=== PATIENT | male | born 1965 | race Two or more races ===

== ENCOUNTER 2017-07-02 16:07 | Inpatient (IN) | payer OTHER ==
[2017-07-02 16:36] VITALS: BMI 19.8
--- NOTE | 2017-07-02 17:23 | HP ---
CIWA Score - CIWA Score Nausea/Vomitin-No Nausea/No Vomiting Muscle Tremors: 3 Anxiety: 1-Mildly Anxious Agitation: 3 Paroxysmal Sweats: No Perspiration Orientation: 1-Uncertain about Date Tacttile Disturbances: 2-Mild Itch/Numbness/Burn (right finger tips) Auditory Disturbances: 0-None Visual Disturbances: 2-Mild Sensitivity Headache: 0-None Present CIWA-Ar Total Score: 12 Admission ROS S - HPI Chief Complaint: I am here for withdrawal, I will like to go to rehab after detox . withdrawal symptoms Allergies/Adverse Reactions: Allergies Allergy/AdvReac Type Severity Reaction Status Date / Time fluphenazine enanthate Allergy Severe Swelling Verified 07/02/17 17:13 [From Prolixin] fluphenazine HCl Allergy Severe Swelling Verified 07/02/17 17:13 [From Prolixin] promethazine HCl Allergy Verified 07/02/17 17:13 [From Phenergan] haloperidol [From Haldol] AdvReac Severe Vomiting Verified 07/02/17 17:13 haloperidol lactate AdvReac Severe Vomiting Verified 07/02/17 17:13 [From Haldol] History of Present Illness: Patient is is a 52 yr old male with a history of alcohol, cocaine, alcohol, klonopin and cannabis dependence seeking detox for treatment. PMHX: chronic back pain, asthma, RA, depression, anxiety and bipolar. Denies suicide / homicidal ideation. Reports past history of suicide attempts while at [facility] in 2008. Denies hx of seizures, or drug over dose. Last detox at [facility] 30 days ago. Exam Limitations: No Limitations - Ebola screening Have you traveled outside of the country in the last 21 days: No Have you had contact with anyone from an Ebola affected area: No Have you been sick,other than usual withdrawal symptoms: No Do you have a fever: No - Review of Systems Constitutional: Chills, Changes in sleep, Unintentional Wgt. Loss EENT: reports: See HPI (15 lbs), Other (wears a glasses) Respiratory: reports: Cough, SOB with Exertion (going up the steps), Wheezing Cardiac: reports: No Symptoms Reported GI: reports: Poor Fluid Intake Musculoskeletal: reports: No Symptoms Reported Integumentary: reports: Lesions (right pinky finger healed injury) Neuro: reports: No Symptoms reported Endocrine: reports: No Symptoms Reported Hematology: reports: No Symptoms Reported Psychiatric: reports: Orientated x3, Anxious Other Systems: Reviewed and Negative Patient History - Patient Medical History Hx Anemia: No Hx Asthma: Yes Hx Chronic Obstructive Pulmonary Disease (COPD): No Hx Cancer: No Hx Cardiac Disorders: No Hx Congestive Heart Failure: No Hx Hypertension: No Hx Hypercholesterolemia: No Hx Pacemaker: No HX Cerebrovascular Accident: No Hx Seizures: No Hx Dementia: No Hx Diabetes: No Hx Gastrointestinal Disorders: Yes (GERD ) Hx Liver Disease: No Hx Genitourinary Disorders: No Hx Sexually Transmitted Disorders: Yes (Gonorrhea ) Hx Renal Disease (ESRD): No Hx Thyroid Disease: No Hx Human Immunodeficiency Virus (HIV): No (Last tested two months ago ) Hx Hepatitis C: No Hx Depression: Yes Hx Suicide Attempt: Yes (in 2008 cut wrist while in [facility] ) Hx Bipolar Disorder: Yes (on seroquel last taken a few months ago.) Hx Schizophrenia: Yes - Patient Surgical History Past Surgical History: Yes Hx Neurologic Surgery: No Hx Cataract Extraction: No Hx Cardiac Surgery: No Hx Lung Surgery: No Hx Breast Surgery: No Hx Breast Biopsy: No Hx Abdominal Surgery: Yes (RIGHT INGUINAL HERNIA REPAIR IN 1998) Hx Appendectomy: No Hx Cholecystectomy: No Hx Genitourinary Surgery: No Hx Section: No Hx Orthopedic Surgery: No Other Surgical History: SX FOR INTESTINAL OBSTRUCTION IN 1990 Anesthesia Reaction: No - PPD History Previous Implant?: Yes Documented Results: Negative w/proof Date: 08/01/15 Results: 0 mm PPD to be Administered?: Yes - Reproductive History Patient is a Female of Child Bearing Age (11 -55 yrs old): No - Smoking Cessation Smoking history: Current every day smoker Have you smoked in the past 12 months: Yes Aproximately how many cigarettes per day: 10 Cigars Per Day: 0 Hx Chewing Tobacco Use: No Initiated information on smoking cessation: Yes 'Breaking Loose' booklet given: 07/02/17 - Substance & Tx. History Hx Alcohol Use: Yes Hx Substance Use: Yes Substance Use Type: Alcohol, Cocaine, Marijuana, Tranquilizers Hx Substance Use Treatment: Yes ([facility] 30 days ago ) - Substances Abused Alcohol Route: Oral Frequency: Daily Amount used: 2 6PKS BEER/ 1 PINT LIQUOR Age of first use: 9 Date of Last Use: 07/02/17 Crack Route: Smoking Frequency: Daily Amount used: $40 Age of first use: 18 Date of Last Use: 06/30/17 Benzodiazepine (Klonopin) Route: Oral Frequency: 1-2 times per week Amount used: 10 mg Age of first use: 18 Date of Last Use: 07/02/17 Family Disease History - Family Disease History Family Disease History: Respiratory: Father (asthma and alcohol , ), Other: Father Admission Physical Exam [facility] - Vital Signs Vital Signs: Vital Signs - 24 hr 07/02/17 16:34 Temperature 96 F L Pulse Rate 98 H Respiratory 18 Rate Blood Pressure 136/81 - Physical General Appearance: Yes: Disheveled, Thin, Irritable HEENTM: Yes: Hearing grossly Normal, Normal ENT Inspection, Pharynx Normal, Tm' s normal, Other (chelithis) Respiratory: Yes: Chest Non-Tender, No Respiratory Distress, No Accessory Muscle Use, Wheezing (bilateral lower lobes), Other (cough non - productive) Neck: Yes: No masses,lesions,Nodules, Trachea in good position Breast: Yes: Breast Exam Deferred Cardiology: Yes: Regular Rhythm, Regular Rate Abdominal: Yes: Normal Bowel Sounds, Non Tender, Flat, Soft Genitourinary: Yes: Within Normal Limits Back: Yes: Normal Inspection Musculoskeletal: Yes: full range of Motion, Gait Steady, Pelvis Stable, Back pain Extremities: Yes: Normal Capillary Refill, Normal Inspection, Normal Range of Motion, Non-Tender 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: 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: 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 NML intact, Fully Oriented, Alert, Motor Strength 5/5, Depressed Affect Integumentary: Yes: Normal Color, Dry, Warm Lymphatic: Yes: Within Normal Limits - Diagnostic (1) Alcohol dependence with withdrawal Current Visit: Yes Status: Acute Qualifiers: Complication of substance-induced condition: uncomplicated Qualified Code(s ): F10.230 - Alcohol dependence with withdrawal, uncomplicated (2) Sedative, hypnotic or anxiolytic dependence with withdrawal, unspecified Current Visit: Yes Status: Acute (3) Schizoaffective disorder Current Visit: Yes Status: Suspected Qualifiers: Schizoaffective disorder type: unspecified Qualified Code(s): F25.9 - Schizoaffective disorder, unspecified (4) Cannabis dependence Current Visit: Yes Status: Acute (5) Cocaine dependence Current Visit: Yes Status: Acute Qualifiers: Substance use status: uncomplicated Qualified Code(s): F14.20 - Cocaine dependence, uncomplicated (6) Gastroesophageal reflux disease Current Visit: Yes Status: Chronic (7) Weight decreased Current Visit: Yes Status: Acute (8) Dehydration Current Visit: Yes Status: Acute (9) Chronic back pain Current Visit: Yes Status: Chronic Qualifiers: Back pain location: low back pain Cleared for Admission [facility] - Detox or Rehab [facility] Level of Care: Medically Managed Detox Regimen/Protocol: Librium S Breath Alcohol Content Breath Alcohol Content: 0.090 Urine Drug Screen - Results Drug Screen Negative: No Urine Drug Screen Results: THC-Marijuana, VELASQUEZ-Cocaine, OPI-Opiates, BZO- Benzodiazepines
[2017-07-02] MEDS ORDERED: guaiFENesin/D-METHORPHAN HB 10 ML UNIT-DOSE CUPS PO PRN (17:47)
[2017-07-02] MEDS ORDERED: MAGNESIUM CITRATE 300 ML BOTTLE PO PRN (17:47)
[2017-07-02] MEDS ORDERED: MENTHOL/PHENOL 1 EACH UD MM PRN (17:47)
[2017-07-02] MEDS ORDERED: IBUPROFEN 400 MG TABLET (FP) PO PRN (17:47)
[2017-07-02] MEDS ORDERED: NICOTINE POLACRILEX 2 MG GUM BC PRN (17:47)
[2017-07-02] MEDS ORDERED: MAGNESIUM HYDROX 2400MG/30ML ORAL SUSPENSION 30 ML CUP PO PRN (17:47)
[2017-07-02] MEDS ORDERED: MAG HYDROX/AL HYDROX/SIMETH 30 ML UNIT-DOSE CUP PO PRN (17:47)
[2017-07-02] MEDS ORDERED: LOPERAMIDE HCL 2 MG CAPSULE PO PRN (17:47)
[2017-07-02] MEDS ORDERED: P-EPHED 60MG/TRIPROLIDI 2.5MG TABLET PO PRN (17:47)
[2017-07-02] MEDS ORDERED: hydrOXYzine PAMOATE 50 MG CAPSULE (FP) PO PRN (17:47)
[2017-07-02] MEDS ORDERED: ACETAMINOPHEN 325 MG TABLET (FP) PO PRN (17:47)
[2017-07-02] MEDS ORDERED: chlordiazePOXIDE HCL 25 MG CAPSULE PO PRN (17:47)
[2017-07-02] MEDS ORDERED: ALBUTEROL SO4 18 GM HFA INHALER IH PRN (17:56)
[2017-07-02] MEDS ORDERED: ALBUTEROL SO4 2.5/IPRATROPIUM 0.5 INH SOL 3 ML VIAL.NEB. NEB PRN (17:58)
[2017-07-02] MEDS ORDERED: THIAMINE HCL 100 MG TABLET (FP) PO SCH (22:00)
[2017-07-02] MEDS ORDERED: MELATONIN 5 MG TABLETS PO PRN (22:00)
[2017-07-02] MEDS ORDERED: METHOCARBAMOL 500 MG TABLET PO SCH (22:00)
[2017-07-02] MEDS: chlordiazePOXIDE HCL 25 MG CAPSULE PO SCH (22:26)
[2017-07-03 02:20] LABS: URINE APPEARANCE CLEAR; URINE BLOOD NEGATIVE (NEGATIVE); URINE COLOR YELLOW; URINE GLUCOSE (UA) NEGATIVE (NEGATIVE); URINE KETONE 1+ (NEGATIVE); URINE LEUK ESTERASE NEGATIVE (NEGATIVE); URINE NITRITE NEGATIVE (NEGATIVE); URINE PROTEIN NEGATIVE (NEGATIVE)
[2017-07-03] MEDS: chlordiazePOXIDE HCL 25 MG CAPSULE PO SCH (05:32)
[2017-07-03 09:54] VITALS: BP 118/84; PULSE 79; TEMP 97
[2017-07-03] MEDS ORDERED: NICOTINE 14 MG/24 HOURS TOPICAL PATCH TD SCH (10:00)
[2017-07-03] MEDS ORDERED: PANTOPRAZOLE 40 MG TABLET (FP) PO SCH (10:00)
[2017-07-03] MEDS ORDERED: CLOTRIMAZOLE 1% CREAM 15 GM TUBE TP SCH (10:00)
[2017-07-03] MEDS ORDERED: PRENATAL VITAMINS W/ FOLIC ACID TABLET (FP) PO SCH (10:00)
[2017-07-03] MEDS ORDERED: BACITRACIN 0.9 GM PACKET TP SCH (10:00)
[2017-07-03] MEDS ORDERED: BACITRACIN 15 GM TUBE TOPICAL OINTMENT TP SCH (10:00)
[2017-07-03 10:23] LABS: HEMATOCRIT 39.5 % (35.4-49); HEMOGLOBIN 13.1 GM/dL (11.7-16.9); MCH 29.4 pg (25.7-33.7); MCHC 33.2 g/dl (32.0-35.9); MEAN CELL VOLUME 88.5 fl (80-96); MEAN PLT VOLUME 8.7 fl (7.5-11.1); PLATELET COUNT 276 K/MM3 (134-434); RBC 4.46 M/mm3 (4.00-5.60); RDW 13.9 % (11.9-15.9); WHITE BLOOD COUNT 6.4 K/mm3 (4.0-10.0)
--- NOTE | 2017-07-03 10:42 | EKG ---
Test Reason : Blood Pressure : / mmHG Vent. Rate : 092 BPM Atrial Rate : 092 BPM P-R Int : 150 ms QRS Dur : 084 ms QT Int : 362 ms P-R-T Axes : 066 083 066 degrees QTc Int : 447 ms SINUS RHYTHM WITH PREMATURE ATRIAL COMPLEXES OTHERWISE NORMAL ECG WHEN COMPARED WITH ECG OF 30-NOV-2013 17:16, PREMATURE ATRIAL COMPLEXES ARE NOW PRESENT Confirmed by MD Bhupinder, Andrse ([id number]) on 07/03/2017 10:41:59 AM Referred By: Confirmed By:Andres Roe MD
[2017-07-03 10:54] LABS: CHLORIDE 107 mmol/L (98-107); POTASSIUM 4.1 mmol/L (3.5-5.1); SODIUM 141 mmol/L (136-145)
[2017-07-03 11:02] LABS: ALBUMIN 3.2 g/dl (3.4-5.0); ALK PHOS 73 U/L (45-117); ANION GAP 8 (8-16); BILIRUBIN,TOTAL 0.3 mg/dL (0.2-1.0); BLOOD UREA NITROGEN 14 mg/dL (7-18); CALCIUM 7.9 mg/dL (8.5-10.1); CO2 26 mmol/L (21-32); CREATININE 1.1 mg/dL (0.7-1.3); GLUCOSE,RANDOM 104 mg/dL (74-106); SGOT/AST 17 U/L (15-37); SGPT/ALT 17 U/L (12-78); TOT PROT 6.2 g/dl (6.4-8.2)
--- NOTE | 2017-07-03 11:27 | CONSULT ---
[facility] Psychiatric Consult - Data Date of interview: 07/03/17 Admission source: [facility] Identifying data: NOT found on the unit.
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
[2017-07-03] MEDS ORDERED: chlordiazePOXIDE HCL 25 MG CAPSULE PO SCH (23:00)
[2017-07-04] MEDS ORDERED: chlordiazePOXIDE 5 MG CAPSULE PO SCH (23:00)
[2017-07-05] MEDS ORDERED: chlordiazePOXIDE HCL 10 MG CAPSULE PO SCH (23:00)
== END 2017-07-03 09:45 | disposition left against medical advice (07) | DRG 770 ==
LOC: YASAS 16:07 → Y3N 18:19
PROVIDERS: ADMIT Internal Medicine; ATTEND Internal Medicine
PROC: HZ2ZZZZ Detoxification Services for Substance Abuse Treatment (ICD-10-PCS; principal; 2017-07-02)
DX: F13.230 Sedative, hypnotic or anxiolytic dependence with withdrawal, uncomplicated (principal); F10.230 Alcohol dependence with withdrawal, uncomplicated; F14.20 Cocaine dependence, uncomplicated; F12.20 Cannabis dependence, uncomplicated; E86.0 Dehydration; M54.5 Low back pain; G89.29 Other chronic pain; R63.4 Abnormal weight loss; Z68.1 Body mass index [BMI] 19.9 or less, adult; J45.909 Unspecified asthma, uncomplicated
CPT/HCPCS: 36415; 80053; 81003; 85027; 86593; 87389; 93005; 93010

== ENCOUNTER 2017-11-17 13:22 | Inpatient (IN) | payer OTHER ==
[2017-11-17 14:58] VITALS: BMI 19.4
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
[2017-11-17] MEDS ORDERED: NICOTINE POLACRILEX 2 MG GUM BC PRN (16:10)
[2017-11-17] MEDS ORDERED: MENTHOL/PHENOL 1 EACH UD MM PRN (16:10)
[2017-11-17] MEDS ORDERED: ACETAMINOPHEN 325 MG TABLET (FP) PO PRN (16:10)
[2017-11-17] MEDS ORDERED: LOPERAMIDE HCL 2 MG CAPSULE PO PRN (16:10)
[2017-11-17] MEDS ORDERED: IBUPROFEN 400 MG TABLET (FP) PO PRN (16:10)
[2017-11-17] MEDS ORDERED: MAGNESIUM HYDROX 2400MG/30ML ORAL SUSPENSION 30 ML CUP PO PRN (16:10)
[2017-11-17] MEDS ORDERED: MAGNESIUM CITRATE 300 ML BOTTLE PO PRN (16:10)
[2017-11-17] MEDS ORDERED: chlordiazePOXIDE HCL 25 MG CAPSULE PO PRN (16:10)
[2017-11-17] MEDS ORDERED: chlordiazePOXIDE HCL 25 MG CAPSULE PO ONE (16:10)
[2017-11-17] MEDS ORDERED: guaiFENesin/D-METHORPHAN HB 10 ML UNIT-DOSE CUPS PO PRN (16:10)
[2017-11-17] MEDS ORDERED: P-EPHED 60MG/TRIPROLIDI 2.5MG TABLET PO PRN (16:10)
[2017-11-17] MEDS ORDERED: MAG HYDROX/AL HYDROX/SIMETH 30 ML UNIT-DOSE CUP PO PRN (16:10)
[2017-11-17] MEDS ORDERED: hydrOXYzine PAMOATE 50 MG CAPSULE (FP) PO PRN (16:10)
[2017-11-17] MEDS: chlordiazePOXIDE HCL 25 MG CAPSULE PO SCH ×2 (18:19→22:18)
[2017-11-17] MEDS: NICOTINE 14 MG/24 HOURS TOPICAL PATCH TD SCH (18:20)
[2017-11-17 21:34] LABS: URINE APPEARANCE CLEAR; URINE BILIRUBIN NEGATIVE (<2.0 mg/dL); URINE COLOR YELLOW; URINE GLUCOSE (UA) NEGATIVE (NEGATIVE); URINE KETONE NEGATIVE (NEGATIVE); URINE LEUK ESTERASE TRACE (NEGATIVE); URINE NITRITE NEGATIVE (NEGATIVE); URINE PROTEIN NEGATIVE (NEGATIVE)
[2017-11-17 21:44] LABS: URINE MUCUS RARE
[2017-11-17] MEDS ORDERED: MELATONIN 5 MG TABLETS PO PRN (22:00)
[2017-11-17] MEDS: THIAMINE HCL 100 MG TABLET (FP) PO SCH (22:18)
[2017-11-18] MEDS: chlordiazePOXIDE HCL 25 MG CAPSULE PO SCH ×4 (06:10→23:59)
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
[2017-11-18] MEDS ORDERED: PRENATAL VITAMINS W/ FOLIC ACID TABLET (FP) PO SCH (10:00)
[2017-11-18] MEDS: NICOTINE 14 MG/24 HOURS TOPICAL PATCH TD SCH (10:19)
[2017-11-18] MEDS: OLANZapine 10 MG TABLET PO SCH ×2 (10:22→23:58)
[2017-11-18 10:37] LABS: HEMATOCRIT 38.7 % (35.4-49); HEMOGLOBIN 12.8 GM/dL (11.7-16.9); MCH 28.9 pg (25.7-33.7); MEAN CELL VOLUME 87.7 fl (80-96); MEAN PLT VOLUME 8.6 fl (7.5-11.1); PLATELET COUNT 317 K/MM3 (134-434); RBC 4.42 M/mm3 (4.00-5.60); RDW 14.5 % (11.9-15.9); WHITE BLOOD COUNT 6.1 K/mm3 (4.0-10.0)
[2017-11-18 10:45] LABS: ANION GAP 7 MMOL/L (8-16); BLOOD UREA NITROGEN 12 mg/dL (7-18); CALCIUM 8.3 mg/dL (8.5-10.1); CHLORIDE 107 mmol/L (98-107); CO2 29 mmol/L (21-32); GLUCOSE,RANDOM 99 mg/dL (74-106); POTASSIUM 4.3 mmol/L (3.5-5.1); SODIUM 143 mmol/L (136-145)
[2017-11-18 10:48] LABS: ALK PHOS 73 U/L (45-117); BILIRUBIN,TOTAL 0.3 mg/dL (0.2-1.0); CREATININE 0.8 mg/dL (0.7-1.3); SGOT/AST 14 U/L (15-37); SGPT/ALT 16 U/L (12-78); TOT PROT 5.9 g/dl (6.4-8.2)
--- NOTE | 2017-11-18 15:32 | PN ---
S CIWA - CIWA Score Nausea/Vomitin Muscle Tremors: 3 Anxiety: 3 Agitation: 3 Paroxysmal Sweats: 3 Orientation: 0-Oriented Tacttile Disturbances: 1-Very Mild Itch/Numbness Auditory Disturbances: 0-None Visual Disturbances: 0-None Headache: 2-Mild CIWA-Ar Total Score: 18 [facility] Progress Note (SOAP) Subjective: Sweating, tremor, interrupted sleep Objective: 11/18/17 15:31 Last Vital Signs Temp Pulse Resp BP Pulse Ox 97 F L 72 20 122/83 11/18/17 14:42 11/18/17 14:42 11/18/17 14:42 11/18/17 14:42 Laboratory Tests 11/17/17 11/18/17 11/18/17 17:55 07:30 07:30 WBC 6.1 RBC 4.42 Hgb 12.8 Hct 38.7 MCV 87.7 MCH 28.9 MCHC 33.0 RDW 14.5 Plt Count 317 MPV 8.6 Sodium 143 Potassium 4.3 Chloride 107 Carbon Dioxide 29 Anion Gap 7 L BUN 12 Creatinine 0.8 Creat Clearance w eGFR > 60 Random Glucose 99 Calcium 8.3 L Total Bilirubin 0.3 AST 14 L ALT 16 Alkaline Phosphatase 73 Total Protein 5.9 L Albumin 3.0 L Urine Color Yellow Urine Appearance Clear Urine pH 5.0 Ur Specific [place] 1.018 Urine Protein Negative Urine Glucose (UA) Negative Urine Ketones Negative Urine Blood Negative Urine Nitrite Negative Urine Bilirubin Negative Urine Urobilinogen 2.0 Ur Leukocyte Esterase Trace Urine WBC (Auto) 9 Urine RBC (Auto) <1 Urine Mucus Rare RPR Titer 11/18/17 07:30 WBC RBC Hgb Hct MCV MCH MCHC RDW Plt Count MPV Sodium Potassium Chloride Carbon Dioxide Anion Gap BUN Creatinine Creat Clearance w eGFR Random Glucose Calcium Total Bilirubin AST ALT Alkaline Phosphatase Total Protein Albumin Urine Color Urine Appearance Urine pH Ur Specific [place] Urine Protein Urine Glucose (UA) Urine Ketones Urine Blood Urine Nitrite Urine Bilirubin Urine Urobilinogen Ur Leukocyte Esterase Urine WBC (Auto) Urine RBC (Auto) Urine Mucus RPR Titer Nonreactive Labs reviewed Assessment: 11/18/17 15:31 Withdrawal symptoms Plan: Continue detox Encouraged PO water hydration
[2017-11-18] MEDS ORDERED: ALBUTEROL SO4 8 GM HFA INHALER IH PRN (18:34)
--- NOTE | 2017-11-18 18:50 | PN ---
[facility] Progress Note Note: Pt requesting to leave the unit, states he just wants to leave. When asked if there was anything that can be done to make his stay better to continue detox, pt answered "nothing.Ok I want cigarette, do you want to give me cigarette?" Pt hostile and unreceptive to education to complete detox. He decline med refill, states "my medicines should still be in my bag" Pt is A & O x 3, in no respiratory nor acute distress, has steady gait and shows no adverse withdrawal sx. Pt understands that he will be leaving against medical advice.
--- NOTE | 2017-11-18 18:53 | DS ---
[facility] Detox Discharge Summary Admission Date: 11/17/17 Discharge Date: 11/18/17 - History Additional Comments: Pt leaving unit AMA. pls see progress note Pertinent Past History: Asthma, chronic back pain - Physical Exam Results Vital Signs: Vital Signs Temperature 97.0 F L 11/18/17 17:59 Pulse Rate 94 H 11/18/17 17:59 Respiratory Rate 16 11/18/17 17:59 Blood Pressure 134/89 11/18/17 17:59 O2 Sat by Pulse Oximetry (%) Pertinent Admission Physical Exam Findings: withdrawal sx - Medication Discharge Medications: Ambulatory Orders Albuterol Sulfate Inhaler - [Ventolin HFA Inhaler -] 2 inh IH Q4H PRN #1 canister 03/16/14 Esomeprazole Mag Trihydrate [Nexium] 40 mg PO DAILY #30 capsule.ec 03/16/14 Methocarbamol [Robaxin -] 500 mg PO BID 11/19/14 traZODone HCL [Desyrel -] 50 mg PO HS 11/19/14 Olanzapine [ZyPREXA -] 10 mg PO BID #60 tablet 11/18/17 - AMA Did Patient Leave Against Medical Advice: Yes
--- NOTE | 2017-11-18 21:58 | EKG ---
Test Reason : Blood Pressure : / mmHG Vent. Rate : 071 BPM Atrial Rate : 071 BPM P-R Int : 158 ms QRS Dur : 086 ms QT Int : 402 ms P-R-T Axes : 063 082 069 degrees QTc Int : 436 ms SINUS RHYTHM WITH MARKED SINUS ARRHYTHMIA OTHERWISE NORMAL ECG WHEN COMPARED WITH ECG OF 02-JUL-2017 19:20, PREMATURE ATRIAL COMPLEXES ARE NO LONGER PRESENT Confirmed by CEE TAYLOR MD ([id number]) on 11/18/2017 9:58:20 PM Referred By: Confirmed By:CEE TAYLOR MD
[2017-11-18] MEDS: THIAMINE HCL 100 MG TABLET (FP) PO SCH (23:58)
[2017-11-19] MEDS: chlordiazePOXIDE HCL 25 MG CAPSULE PO SCH (05:15)
[2017-11-19 09:26] VITALS: BP 117/85; PULSE 86; TEMP 97.1
--- NOTE | 2017-11-19 09:43 | PN ---
[facility] Progress Note Note: PT SIGNED OUT AMA FOR PERSONAL REASONS STATING THAT"I'M NOT GONNA TELL YOU WHY. I JUST WANNA SIGN OUT". PT REMINDED TO FOLLOW UP WITH HIS PAI GOW MANAGER AT [facility] FOR MEDICAL MANAGEMENT NEEDED AND AFTERCARE PLANNED. Vital Signs 11/19/17 11/19/17 11/19/17 06:10 06:30 09:25 Temperature 97.2 F L 97.1 F L Pulse Rate 61 86 Respiratory 18 18 18 Rate Blood Pressure 127/88 117/85 Laboratory Tests 11/17/17 11/18/17 11/18/17 17:55 07:30 07:30 WBC 6.1 RBC 4.42 Hgb 12.8 Hct 38.7 MCV 87.7 MCH 28.9 MCHC 33.0 RDW 14.5 Plt Count 317 MPV 8.6 Sodium 143 Potassium 4.3 Chloride 107 Carbon Dioxide 29 Anion Gap 7 L BUN 12 Creatinine 0.8 Creat Clearance w eGFR > 60 Random Glucose 99 Calcium 8.3 L Total Bilirubin 0.3 AST 14 L ALT 16 Alkaline Phosphatase 73 Total Protein 5.9 L Albumin 3.0 L Urine Color Yellow Urine Appearance Clear Urine pH 5.0 Ur Specific [place] 1.018 Urine Protein Negative Urine Glucose (UA) Negative Urine Ketones Negative Urine Blood Negative Urine Nitrite Negative Urine Bilirubin Negative Urine Urobilinogen 2.0 Ur Leukocyte Esterase Trace Urine WBC (Auto) 9 Urine RBC (Auto) <1 Urine Mucus Rare RPR Titer 11/18/17 07:30 WBC RBC Hgb Hct MCV MCH MCHC RDW Plt Count MPV Sodium Potassium Chloride Carbon Dioxide Anion Gap BUN Creatinine Creat Clearance w eGFR Random Glucose Calcium Total Bilirubin AST ALT Alkaline Phosphatase Total Protein Albumin Urine Color Urine Appearance Urine pH Ur Specific [place] Urine Protein Urine Glucose (UA) Urine Ketones Urine Blood Urine Nitrite Urine Bilirubin Urine Urobilinogen Ur Leukocyte Esterase Urine WBC (Auto) Urine RBC (Auto) Urine Mucus RPR Titer Nonreactive NAD PLAN:PT SIGNED OUT AMA
--- NOTE | 2017-11-19 12:17 | DS ---
[facility] Detox Discharge Summary Admission Date: 11/17/17 Discharge Date: 11/19/17 - History Present History: Alcohol Dependence Additional Comments: PT SIGNED OUT AMA FOR PERSONAL REASONS. FOLLOW UP WITH HIS PMD AT [facility] FOR MEDICAL [facility]NAG[facility]. Pertinent Past History: PLEASE SEE DX BELOW - Physical Exam Results Vital Signs: Vital Signs Temperature 97.1 F L 11/19/17 09:25 Pulse Rate 86 11/19/17 09:25 Respiratory Rate 18 11/19/17 09:25 Blood Pressure 117/85 11/19/17 09:25 O2 Sat by Pulse Oximetry (%) Pertinent Admission Physical Exam Findings: WITHDRAWAL SX Laboratory Tests 11/17/17 11/18/17 11/18/17 17:55 07:30 07:30 WBC 6.1 RBC 4.42 Hgb 12.8 Hct 38.7 MCV 87.7 MCH 28.9 MCHC 33.0 RDW 14.5 Plt Count 317 MPV 8.6 Sodium 143 Potassium 4.3 Chloride 107 Carbon Dioxide 29 Anion Gap 7 L BUN 12 Creatinine 0.8 Creat Clearance w eGFR > 60 Random Glucose 99 Calcium 8.3 L Total Bilirubin 0.3 AST 14 L ALT 16 Alkaline Phosphatase 73 Total Protein 5.9 L Albumin 3.0 L Urine Color Yellow Urine Appearance Clear Urine pH 5.0 Ur Specific [place] 1.018 Urine Protein Negative Urine Glucose (UA) Negative Urine Ketones Negative Urine Blood Negative Urine Nitrite Negative Urine Bilirubin Negative Urine Urobilinogen 2.0 Ur Leukocyte Esterase Trace Urine WBC (Auto) 9 Urine RBC (Auto) <1 Urine Mucus Rare RPR Titer 11/18/17 07:30 WBC RBC Hgb Hct MCV MCH MCHC RDW Plt Count MPV Sodium Potassium Chloride Carbon Dioxide Anion Gap BUN Creatinine Creat Clearance w eGFR Random Glucose Calcium Total Bilirubin AST ALT Alkaline Phosphatase Total Protein Albumin Urine Color Urine Appearance Urine pH Ur Specific [place] Urine Protein Urine Glucose (UA) Urine Ketones Urine Blood Urine Nitrite Urine Bilirubin Urine Urobilinogen Ur Leukocyte Esterase Urine WBC (Auto) Urine RBC (Auto) Urine Mucus RPR Titer Nonreactive - Treatment Hospital Course: Discharged Condition Good - Medication Discharge Medications: Ambulatory Orders Albuterol Sulfate Inhaler - [Ventolin HFA Inhaler -] 2 inh IH Q4H PRN #1 canister 03/16/14 Esomeprazole Mag Trihydrate [Nexium] 40 mg PO DAILY #30 capsule.ec 03/16/14 Methocarbamol [Robaxin -] 500 mg PO BID 11/19/14 traZODone HCL [Desyrel -] 50 mg PO HS 11/19/14 Olanzapine [ZyPREXA -] 10 mg PO BID #60 tablet 11/18/17 - Diagnosis (1) Alcohol dependence with withdrawal Status: Acute Qualifiers: Complication of substance-induced condition: uncomplicated Qualified Code(s ): F10.230 - Alcohol dependence with withdrawal, uncomplicated (2) Cannabis dependence Status: Acute (3) Cocaine dependence Status: Acute Qualifiers: Substance use status: uncomplicated Qualified Code(s): F14.20 - Cocaine dependence, uncomplicated (4) Dehydration Status: Acute (5) Asthma Status: Chronic (6) Nicotine dependence Status: Chronic Qualifiers: Nicotine product type: cigarettes Substance use status: in withdrawal Qualified Code(s): F17.213 - Nicotine dependence, cigarettes, with withdrawal - AMA Did Patient Leave Against Medical Advice: Yes (AMA)
[2017-11-19] MEDS ORDERED: chlordiazePOXIDE 5 MG CAPSULE PO SCH (17:00)
[2017-11-20] MEDS ORDERED: chlordiazePOXIDE HCL 10 MG CAPSULE PO SCH (17:00)
== END 2017-11-19 09:39 | disposition left against medical advice (07) | DRG 770 ==
LOC: YASAS 13:22 → Y3N 17:35
PROVIDERS: ADMIT Surgery; ATTEND Surgery
PROC: HZ2ZZZZ Detoxification Services for Substance Abuse Treatment (ICD-10-PCS; principal; 2017-11-17)
DX: F10.230 Alcohol dependence with withdrawal, uncomplicated (principal); F14.20 Cocaine dependence, uncomplicated; F17.210 Nicotine dependence, cigarettes, uncomplicated; F25.9 Schizoaffective disorder, unspecified; F31.9 Bipolar disorder, unspecified; F19.24 Other psychoactive substance dependence with psychoactive substance-induced mood disorder; E86.0 Dehydration; K21.9 Gastro-esophageal reflux disease without esophagitis; J45.909 Unspecified asthma, uncomplicated; R63.4 Abnormal weight loss; Z68.1 Body mass index [BMI] 19.9 or less, adult; M54.5 Low back pain; G89.29 Other chronic pain; Z91.5 Personal history of self-harm; Z88.8 Allergy status to other drugs, medicaments and biological substances
CPT/HCPCS: 36415; 80053; 81003; 81015; 85027; 86593; 93005; 93010

== ENCOUNTER 2017-12-21 13:23 | Inpatient (IN) | payer OTHER ==
[2017-12-21 14:44] VITALS: BMI 20.5
--- NOTE | 2017-12-21 18:21 | HP ---
CIWA Score - CIWA Score Nausea/Vomitin-No Nausea/No Vomiting Muscle Tremors: 4-Moderate,w/Arms Extend Anxiety: 1-Mildly Anxious Agitation: 4-Moderately Restless Paroxysmal Sweats: No Perspiration Orientation: 0-Oriented Tacttile Disturbances: 0-None Auditory Disturbances: 0-None Visual Disturbances: 0-None Headache: 2-Mild CIWA-Ar Total Score: 11 Admission ROS S - HPI Chief Complaint: Here for alcohol withdrawal and help. Allergies/Adverse Reactions: Allergies Allergy/AdvReac Type Severity Reaction Status Date / Time fluphenazine enanthate Allergy Severe Swelling Verified 12/21/17 16:43 [From Prolixin] fluphenazine HCl Allergy Severe Swelling Verified 12/21/17 16:43 [From Prolixin] promethazine HCl Allergy Verified 12/21/17 16:46 [From Phenergan] haloperidol [From Haldol] AdvReac Severe stiffness Verified 12/21/17 16:46 haloperidol lactate AdvReac Severe stiffness Verified 12/21/17 16:46 [From Haldol] History of Present Illness: Hx alcohol use disorder since age 9. Marijuana use disorder since age 9. Cocaine use disorder since age 18. Current TAMIKA = 0.042 Has had multiple detox and rehab admissions but denies extended periods of sobriety. Hx Inguinal hernia; Discussed risks of un-repaired hernia and patient states "I know about strangulation". States will notify staff of any increased pain in area. States has mental health issues and is on medications. Denies thoughts of harming self or others. Search Terms: Junior Farah, 1965 Search Date: 12/21/2017 06:20:16 PM The Drug Utilization Report below displays all of the controlled substance prescriptions, if any, that your patient has filled in the last twelve months. The information displayed on this report is compiled from pharmacy submissions to the Department, and accurately reflects the information as submitted by the pharmacies. This report was requested by: Shira Falcon | Reference #: [id number] Patient Name: Junior Farah Date: 1965 Address: [address] [place] [address] Sex: Male Rx Written Rx Dispensed Drug Quantity Days Supply Prescriber Name 12/01/2017 12/01/2017 chlordiazepoxide 10 mg capsule 27 3 Pean, Harley Reyes Patient Name: Junior Farah Date: 1965 Address: [address] [place] [address] Sex: Male Rx Written Rx Dispensed Drug Quantity Days Supply Prescriber Name 07/06/2017 07/06/2017 oxycodone-acetaminophen 5-325 mg tablet 6 2 Benjamín Prabhakar MD Patient Name: Junior Farah Date: 1965 Address: [address] [place] [address] Sex: Male Rx Written Rx Dispensed Drug Quantity Days Supply Prescriber Name 04/27/2017 05/08/2017 oxycodone-acetaminophen 10-325 mg tab 6 1 Samuel Manish Patient Name: Junior Farah Date: 1965 Address: [address] [place] [address] Sex: Male Rx Written Rx Dispensed Drug Quantity Days Supply Prescriber Name 04/17/2017 04/17/2017 oxycodone-acetaminophen 10-325 mg tab 9 3 Arnold Pina MD Exam Limitations: No Limitations - Ebola screening Have you traveled outside of the country in the last 21 days: No Have you had contact with anyone from an Ebola affected area: No Have you been sick,other than usual withdrawal symptoms: No - Review of Systems Constitutional: Changes in sleep (Difficulty falling asleep. Takes meds), Unintentional Wgt. Loss EENT: reports: Blurred Vision (Wears) Respiratory: reports: No Symptoms reported, Other (Hx asthma and bronchitis) Cardiac: reports: No Symptoms Reported GI: reports: Indigestion (acid reflux), Other ((L) inguinal hernia with occ tenderness - "ducking surgery") : reports: No Symptoms Reported Musculoskeletal: reports: No Symptoms Reported Integumentary: reports: No Symptoms Reported Neuro: reports: Tremors Endocrine: reports: No Symptoms Reported Hematology: reports: No Symptoms Reported Psychiatric: reports: Judgement Intact, Orientated x3 (On medications. Denies thoughts of harming self or others.), Agitated, Anxious, Depressed Patient History - Patient Medical History Hx Anemia: No Hx Asthma: Yes Hx Chronic Obstructive Pulmonary Disease (COPD): No Hx Cancer: No Hx Cardiac Disorders: No Hx Congestive Heart Failure: No Hx Hypertension: No Hx Hypercholesterolemia: No Hx Pacemaker: No HX Cerebrovascular Accident: No Hx Seizures: No Hx Dementia: No Hx Diabetes: No Hx Gastrointestinal Disorders: Yes (acid reflux) Hx Liver Disease: No Hx Genitourinary Disorders: No Hx Sexually Transmitted Disorders: Yes (gonorrhea) Hx Renal Disease (ESRD): No Hx Thyroid Disease: No Hx Human Immunodeficiency Virus (HIV): No Hx Hepatitis C: No Hx Depression: Yes Hx Suicide Attempt: Yes (pill overdose at age 26) Hx Bipolar Disorder: Yes Hx Schizophrenia: Yes (schizoaffective disorder) - Patient Surgical History Past Surgical History: Yes Hx Neurologic Surgery: No Hx Cataract Extraction: No Hx Cardiac Surgery: No Hx Lung Surgery: No Hx Breast Surgery: No Hx Breast Biopsy: No Hx Abdominal Surgery: Yes (RIGHT INGUINAL HERNIA REPAIR IN 1998) Hx Appendectomy: No Hx Cholecystectomy: No Hx Genitourinary Surgery: No Hx Section: No Hx Orthopedic Surgery: No Other Surgical History: SX FOR INTESTINAL OBSTRUCTION IN 1990 Anesthesia Reaction: No - PPD History Previous Implant?: Yes Documented Results: Negative w/proof Implanted On Prior [facility] Admission?: Yes Date: 11/19/17 Results: 0 mm PPD to be Administered?: No - Smoking Cessation Smoking history: Current every day smoker Have you smoked in the past 12 months: Yes Aproximately how many cigarettes per day: 10 Cigars Per Day: 0 Hx Chewing Tobacco Use: No Initiated information on smoking cessation: Yes 'Breaking Loose' booklet given: 12/21/17 - Substance & Tx. History Hx Alcohol Use: Yes Hx Substance Use: Yes Substance Use Type: Alcohol, Cocaine, Marijuana Hx Substance Use Treatment: Yes (detox, rehabs) - Substances Abused Crack Route: Smoking Frequency: Daily Amount used: $125 Age of first use: 18 Date of Last Use: 12/20/17 Alcohol-vodka/beer Route: Oral Frequency: Daily Amount used: 3 pts./2-6 pks. Age of first use: 9 Date of Last Use: 12/21/17 Marijuana Route: Smoking Frequency: Daily Amount used: $30 Age of first use: 9 Date of Last Use: 12/20/17 Family Disease History - Family Disease History Family Disease History: Respiratory: Father (asthma and alcohol , ), Other: Father Admission Physical Exam [facility] - Vital Signs Vital Signs: Vital Signs - 24 hr 12/21/17 14:43 Temperature 98.0 F Pulse Rate 78 Respiratory 18 Rate Blood Pressure 115/78 - Physical General Appearance: Yes: Appropriately Dressed, Mild Distress, Alcohol on Breath , Tremorous, Irritable, Anxious HEENTM: Yes: EOMI, Hearing grossly Normal, Normocephalic, Normal Voice, CHEPE, Other (Dry oral mucous membranes) Respiratory: Yes: Chest Non-Tender, Lungs Clear, Normal Breath Sounds, No Respiratory Distress Neck: Yes: No masses,lesions,Nodules, Supple Breast: Yes: Breast Exam Deferred Cardiology: Yes: Regular Rhythm, Regular Rate, S1, S2 Abdominal: Yes: Normal Bowel Sounds, Non Tender, Flat, Soft, Hernia (Reducible ( L) inguinal hernia.) Genitourinary: Yes: Within Normal Limits Back: Yes: Normal Inspection Musculoskeletal: Yes: full range of Motion, Gait Steady Extremities: Yes: Normal Capillary Refill, Normal Range of Motion, Non-Tender, Tremors ([place] and also of hands when arms extended.) 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: Yes: shipping and receiving weigher II-XII NML intact, Fully Oriented, Alert, Motor Strength 5/5, Normal Mood/Affect, Normal Response Integumentary: Yes: Normal Color, Dry (Poor skin turgor.), Warm, Other ( Thickenening and cracking of skin between toes) Lymphatic: Yes: Within Normal Limits - Diagnostic (1) Hernia, inguinal Current Visit: Yes Status: Chronic Qualifiers: Obstruction and gangrene presence: without obstruction or gangrene Laterality: unilateral Recurrence: recurrent Qualified Code(s): K40.91 - Unilateral inguinal hernia, without obstruction or gangrene, recurrent (2) Alcohol dependence with withdrawal Current Visit: Yes Status: Acute Qualifiers: Complication of substance-induced condition: uncomplicated Qualified Code(s ): F10.230 - Alcohol dependence with withdrawal, uncomplicated (3) Cannabis dependence Current Visit: Yes Status: Chronic (4) Cocaine dependence Current Visit: Yes Status: Chronic Qualifiers: Substance use status: uncomplicated Qualified Code(s): F14.20 - Cocaine dependence, uncomplicated (5) Dehydration Current Visit: Yes Status: Acute (6) Asthma Current Visit: Yes Status: Chronic (7) Gastroesophageal reflux disease Current Visit: Yes Status: Chronic (8) Tinea pedis of both feet Current Visit: Yes Status: Chronic Cleared for Admission [facility] - Detox or Rehab [facility] Level of Care: Medically Managed Detox Regimen/Protocol: Librium [facility] Breath Alcohol Content Breath Alcohol Content: 0.042 Urine Drug Screen - Results Drug Screen Negative: No Urine Drug Screen Results: THC-Marijuana, VELASQUEZ-Cocaine
[2017-12-21] MEDS ORDERED: chlordiazePOXIDE HCL 25 MG CAPSULE PO PRN (18:42)
[2017-12-21] MEDS ORDERED: MAGNESIUM HYDROX 2400MG/30ML ORAL SUSPENSION 30 ML CUP PO PRN (18:42)
[2017-12-21] MEDS ORDERED: MAGNESIUM CITRATE 300 ML BOTTLE PO PRN (18:42)
[2017-12-21] MEDS ORDERED: hydrOXYzine PAMOATE 50 MG CAPSULE (FP) PO PRN (18:42)
[2017-12-21] MEDS ORDERED: LOPERAMIDE HCL 2 MG CAPSULE PO PRN (18:42)
[2017-12-21] MEDS ORDERED: chlordiazePOXIDE HCL 25 MG CAPSULE PO ONE (18:42)
[2017-12-21] MEDS ORDERED: guaiFENesin/D-METHORPHAN HB 10 ML UNIT-DOSE CUPS PO PRN (18:42)
[2017-12-21] MEDS ORDERED: MAG HYDROX/AL HYDROX/SIMETH 30 ML UNIT-DOSE CUP PO PRN (18:42)
[2017-12-21] MEDS ORDERED: IBUPROFEN 400 MG TABLET (FP) PO PRN (18:42)
[2017-12-21] MEDS ORDERED: ACETAMINOPHEN 325 MG TABLET (FP) PO PRN (18:42)
[2017-12-21] MEDS ORDERED: MENTHOL/PHENOL 1 EACH UD MM PRN (18:42)
[2017-12-21] MEDS ORDERED: NICOTINE POLACRILEX 2 MG GUM BUC PRN (18:42)
[2017-12-21] MEDS ORDERED: P-EPHED 60MG/TRIPROLIDI 2.5MG TABLET PO PRN (18:42)
[2017-12-21] MEDS ORDERED: ALBUTEROL SO4 8 GM HFA INHALER IH PRN (18:45)
[2017-12-21] MEDS ORDERED: MELATONIN 5 MG TABLETS PO PRN (22:00)
[2017-12-21] MEDS: chlordiazePOXIDE HCL 25 MG CAPSULE PO SCH (22:48)
[2017-12-21] MEDS: THIAMINE HCL 100 MG TABLET (FP) PO SCH (22:49)
[2017-12-21] MEDS: TOLNAFTATE 1% POWDER 45 GM POW TP SCH (22:51)
[2017-12-22] MEDS: chlordiazePOXIDE HCL 25 MG CAPSULE PO SCH ×4 (05:29→22:33)
[2017-12-22] MEDS: TOLNAFTATE 1% POWDER 45 GM POW TP SCH ×2 (10:55→22:35)
[2017-12-22] MEDS: NICOTINE 14 MG/24 HOURS TOPICAL PATCH TD SCH (10:55)
[2017-12-22] MEDS: PANTOPRAZOLE 20 MG TABLET (FP) PO SCH (10:55)
[2017-12-22] MEDS: PRENATAL VITAMINS W/ FOLIC ACID TABLET (FP) PO SCH (10:56)
[2017-12-22 11:23] LABS: HEMATOCRIT 41.7 % (35.4-49); HEMOGLOBIN 13.4 GM/dL (11.7-16.9); MCH 28.6 pg (25.7-33.7); MCHC 32.3 g/dl (32.0-35.9); MEAN CELL VOLUME 88.4 fl (80-96); MEAN PLT VOLUME 8.9 fl (7.5-11.1); PLATELET COUNT 295 K/MM3 (134-434); RBC 4.71 M/mm3 (4.00-5.60); RDW 14.8 % (11.9-15.9); URINE APPEARANCE CLEAR; URINE BILIRUBIN NEGATIVE (<2.0 mg/dL); URINE COLOR STRAW; URINE GLUCOSE (UA) NEGATIVE (NEGATIVE); URINE KETONE NEGATIVE (NEGATIVE); URINE LEUK ESTERASE NEGATIVE (NEGATIVE); URINE NITRITE NEGATIVE (NEGATIVE); URINE PROTEIN NEGATIVE (NEGATIVE); URINE UROBILINOGEN NEGATIVE mg/dL (0.2-1.0); WHITE BLOOD COUNT 6.5 K/mm3 (4.0-10.0)
[2017-12-22 11:42] LABS: ALBUMIN 3.3 g/dl (3.4-5.0); ALK PHOS 74 U/L (45-117); ANION GAP 9 MMOL/L (8-16); BILIRUBIN,TOTAL 0.3 mg/dL (0.2-1); BLOOD UREA NITROGEN 11 mg/dL (7-18); CALCIUM 9.3 mg/dL (8.5-10.1); CHLORIDE 104 mmol/L (98-107); CO2 28 mmol/L (21-32); CREATININE 0.9 mg/dL (0.55-1.3); GLUCOSE,RANDOM 79 mg/dL (74-106); POTASSIUM 4.1 mmol/L (3.5-5.1); SGOT/AST 17 U/L (15-37); SGPT/ALT 18 U/L (13-61); SODIUM 141 mmol/L (136-145); TOT PROT 6.5 g/dl (6.4-8.2)
--- NOTE | 2017-12-22 12:36 | PN ---
[facility] CIWA - CIWA Score Nausea/Vomitin-No Nausea/No Vomiting Muscle Tremors: 3 Anxiety: 3 Agitation: 3 Paroxysmal Sweats: 3 Orientation: 0-Oriented Tacttile Disturbances: 0-None Auditory Disturbances: 0-None Visual Disturbances: 1-Very Mild Sensitivity Headache: 0-None Present CIWA-Ar Total Score: 13 S Progress Note (SOAP) Subjective: fatigue, chills, interrupted sleep, sweats Objective: 12/22/17 12:35 Vital Signs Temperature 97.0 F L 12/22/17 08:59 Pulse Rate 72 12/22/17 08:59 Respiratory Rate 18 12/22/17 08:59 Blood Pressure 118/77 12/22/17 08:59 O2 Sat by Pulse Oximetry (%) Laboratory Last Values WBC 6.5 K/mm3 (4.0-10.0) 12/22/17 07:40 RBC 4.71 M/mm3 (4.00-5.60) 12/22/17 07:40 Hgb 13.4 GM/dL (11.7-16.9) 12/22/17 07:40 Hct 41.7 % (35.4-49) 12/22/17 07:40 MCV 88.4 fl (80-96) 12/22/17 07:40 MCH 28.6 pg (25.7-33.7) 12/22/17 07:40 MCHC 32.3 g/dl (32.0-35.9) 12/22/17 07:40 RDW 14.8 % (11.9-15.9) 12/22/17 07:40 Plt Count 295 K/MM3 (134-434) 12/22/17 07:40 MPV 8.9 fl (7.5-11.1) 12/22/17 07:40 Sodium 141 mmol/L (136-145) 12/22/17 07:40 Potassium 4.1 mmol/L (3.5-5.1) 12/22/17 07:40 Chloride 104 mmol/L (98-107) 12/22/17 07:40 Carbon Dioxide 28 mmol/L (21-32) 12/22/17 07:40 Anion Gap 9 MMOL/L (8-16) 12/22/17 07:40 BUN 11 mg/dL (7-18) 12/22/17 07:40 Creatinine 0.9 mg/dL (0.55-1.3) 12/22/17 07:40 Creat Clearance w eGFR > 60 (>60) 12/22/17 07:40 Random Glucose 79 mg/dL (74-106) 12/22/17 07:40 Calcium 9.3 mg/dL (8.5-10.1) 12/22/17 07:40 Total Bilirubin 0.3 mg/dL (0.2-1) 12/22/17 07:40 AST 17 U/L (15-37) 12/22/17 07:40 ALT 18 U/L (13-61) 12/22/17 07:40 Alkaline Phosphatase 74 U/L (45-117) 12/22/17 07:40 Total Protein 6.5 g/dl (6.4-8.2) 12/22/17 07:40 Albumin 3.3 g/dl (3.4-5.0) L 12/22/17 07:40 Urine Color Straw 12/22/17 07:40 Urine Appearance Clear 12/22/17 07:40 Urine pH 5.0 (5.0-8.0) 12/22/17 07:40 Ur Specific [place] 1.010 (1.001-1.035) 12/22/17 07:40 Urine Protein Negative (NEGATIVE) 12/22/17 07:40 Urine Glucose (UA) Negative (NEGATIVE) 12/22/17 07:40 Urine Ketones Negative (NEGATIVE) 12/22/17 07:40 Urine Blood Negative (NEGATIVE) 12/22/17 07:40 Urine Nitrite Negative (NEGATIVE) 12/22/17 07:40 Urine Bilirubin Negative (<2.0 mg/dL) 12/22/17 07:40 Urine Urobilinogen Negative mg/dL (0.2-1.0) 12/22/17 07:40 Ur Leukocyte Esterase Negative (NEGATIVE) 12/22/17 07:40 RPR Titer Nonreactive (NONREACTIVE) 12/22/17 07:40 Labs noted Aox3 no distress, anxious no adventitious breath sounds full ROM , ambulating in the unit Assessment: 12/22/17 12:36 withdrawal sx Plan: increase po fluids continue detox continue to monitor
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
[2017-12-22] MEDS ORDERED: traZODone HCL 50 MG TABLET (FP) PO SCH (22:00)
[2017-12-22] MEDS: THIAMINE HCL 100 MG TABLET (FP) PO SCH (22:33)
--- NOTE | 2017-12-22 23:24 | EKG ---
Test Reason : Blood Pressure : / mmHG Vent. Rate : 082 BPM Atrial Rate : 082 BPM P-R Int : 162 ms QRS Dur : 082 ms QT Int : 354 ms P-R-T Axes : 074 083 069 degrees QTc Int : 413 ms NORMAL SINUS RHYTHM NORMAL ECG WHEN COMPARED WITH ECG OF 17-NOV-2017 17:49, NO SIGNIFICANT CHANGE WAS FOUND Confirmed by CEE TAYLOR MD ([id number]) on 12/22/2017 11:24:09 PM Referred By: Confirmed By:CEE TAYLOR MD
[2017-12-23] MEDS: chlordiazePOXIDE HCL 25 MG CAPSULE PO SCH ×3 (06:00→17:20)
[2017-12-23] MEDS: PANTOPRAZOLE 20 MG TABLET (FP) PO SCH (10:20)
[2017-12-23] MEDS: NICOTINE 14 MG/24 HOURS TOPICAL PATCH TD SCH (10:20)
[2017-12-23] MEDS: TOLNAFTATE 1% POWDER 45 GM POW TP SCH (10:20)
[2017-12-23] MEDS: PRENATAL VITAMINS W/ FOLIC ACID TABLET (FP) PO SCH (11:30)
[2017-12-23 13:59] VITALS: BP 127/75; PULSE 75; TEMP 96.8
--- NOTE | 2017-12-23 14:53 | PN ---
S CIWA - CIWA Score Nausea/Vomitin-No Nausea/No Vomiting Muscle Tremors: 4-Moderate,w/Arms Extend Anxiety: 3 Agitation: 4-Moderately Restless Paroxysmal Sweats: 1-Minimal Palms Moist Orientation: 0-Oriented Tacttile Disturbances: 0-None Auditory Disturbances: 0-None Visual Disturbances: 0-None Headache: 0-None Present CIWA-Ar Total Score: 12 [facility] Progress Note (SOAP) Subjective: sweat tremor restlessness anxiety trouble sleep at night Objective: 12/23/17 14:54 Vital Signs Temperature 96.8 F L 12/23/17 13:59 Pulse Rate 75 12/23/17 13:59 Respiratory Rate 18 12/23/17 13:59 Blood Pressure 127/75 12/23/17 13:59 O2 Sat by Pulse Oximetry (%) Laboratory Last Values WBC 6.5 K/mm3 (4.0-10.0) 12/22/17 07:40 RBC 4.71 M/mm3 (4.00-5.60) 12/22/17 07:40 Hgb 13.4 GM/dL (11.7-16.9) 12/22/17 07:40 Hct 41.7 % (35.4-49) 12/22/17 07:40 MCV 88.4 fl (80-96) 12/22/17 07:40 MCH 28.6 pg (25.7-33.7) 12/22/17 07:40 MCHC 32.3 g/dl (32.0-35.9) 12/22/17 07:40 RDW 14.8 % (11.9-15.9) 12/22/17 07:40 Plt Count 295 K/MM3 (134-434) 12/22/17 07:40 MPV 8.9 fl (7.5-11.1) 12/22/17 07:40 Sodium 141 mmol/L (136-145) 12/22/17 07:40 Potassium 4.1 mmol/L (3.5-5.1) 12/22/17 07:40 Chloride 104 mmol/L (98-107) 12/22/17 07:40 Carbon Dioxide 28 mmol/L (21-32) 12/22/17 07:40 Anion Gap 9 MMOL/L (8-16) 12/22/17 07:40 BUN 11 mg/dL (7-18) 12/22/17 07:40 Creatinine 0.9 mg/dL (0.55-1.3) 12/22/17 07:40 Creat Clearance w eGFR > 60 (>60) 12/22/17 07:40 Random Glucose 79 mg/dL (74-106) 12/22/17 07:40 Calcium 9.3 mg/dL (8.5-10.1) 12/22/17 07:40 Total Bilirubin 0.3 mg/dL (0.2-1) 12/22/17 07:40 AST 17 U/L (15-37) 12/22/17 07:40 ALT 18 U/L (13-61) 12/22/17 07:40 Alkaline Phosphatase 74 U/L (45-117) 12/22/17 07:40 Total Protein 6.5 g/dl (6.4-8.2) 12/22/17 07:40 Albumin 3.3 g/dl (3.4-5.0) L 12/22/17 07:40 Urine Color Straw 12/22/17 07:40 Urine Appearance Clear 12/22/17 07:40 Urine pH 5.0 (5.0-8.0) 12/22/17 07:40 Ur Specific [place] 1.010 (1.001-1.035) 12/22/17 07:40 Urine Protein Negative (NEGATIVE) 12/22/17 07:40 Urine Glucose (UA) Negative (NEGATIVE) 12/22/17 07:40 Urine Ketones Negative (NEGATIVE) 12/22/17 07:40 Urine Blood Negative (NEGATIVE) 12/22/17 07:40 Urine Nitrite Negative (NEGATIVE) 12/22/17 07:40 Urine Bilirubin Negative (<2.0 mg/dL) 12/22/17 07:40 Urine Urobilinogen Negative mg/dL (0.2-1.0) 12/22/17 07:40 Ur Leukocyte Esterase Negative (NEGATIVE) 12/22/17 07:40 RPR Titer Nonreactive (NONREACTIVE) 12/22/17 07:40 lab noted Assessment: 12/23/17 14:55 withdrawal sx Plan: continue detox
--- NOTE | 2017-12-23 18:19 | PN ---
A[facility] Progress Note Note: patient involved in verbal altercation,did not want to stay and complete treatment,all attempts to convince patient to stay with no avail,seen by counselor and supervisor core [employer],patient signed release rui
--- NOTE | 2017-12-23 18:23 | DS ---
[facility] Detox Discharge Summary Admission Date: 12/21/17 Discharge Date: 12/23/17 - History Present History: Alcohol Dependence, Cannabis Dependence, Cocaine Dependence Additional Comments: patient signed release ama Pertinent Past History: withdrawal signs and symptom Laboratory Last Values WBC 6.5 K/mm3 (4.0-10.0) 12/22/17 07:40 RBC 4.71 M/mm3 (4.00-5.60) 12/22/17 07:40 Hgb 13.4 GM/dL (11.7-16.9) 12/22/17 07:40 Hct 41.7 % (35.4-49) 12/22/17 07:40 MCV 88.4 fl (80-96) 12/22/17 07:40 MCH 28.6 pg (25.7-33.7) 12/22/17 07:40 MCHC 32.3 g/dl (32.0-35.9) 12/22/17 07:40 RDW 14.8 % (11.9-15.9) 12/22/17 07:40 Plt Count 295 K/MM3 (134-434) 12/22/17 07:40 MPV 8.9 fl (7.5-11.1) 12/22/17 07:40 Sodium 141 mmol/L (136-145) 12/22/17 07:40 Potassium 4.1 mmol/L (3.5-5.1) 12/22/17 07:40 Chloride 104 mmol/L (98-107) 12/22/17 07:40 Carbon Dioxide 28 mmol/L (21-32) 12/22/17 07:40 Anion Gap 9 MMOL/L (8-16) 12/22/17 07:40 BUN 11 mg/dL (7-18) 12/22/17 07:40 Creatinine 0.9 mg/dL (0.55-1.3) 12/22/17 07:40 Creat Clearance w eGFR > 60 (>60) 12/22/17 07:40 Random Glucose 79 mg/dL (74-106) 12/22/17 07:40 Calcium 9.3 mg/dL (8.5-10.1) 12/22/17 07:40 Total Bilirubin 0.3 mg/dL (0.2-1) 12/22/17 07:40 AST 17 U/L (15-37) 12/22/17 07:40 ALT 18 U/L (13-61) 12/22/17 07:40 Alkaline Phosphatase 74 U/L (45-117) 12/22/17 07:40 Total Protein 6.5 g/dl (6.4-8.2) 12/22/17 07:40 Albumin 3.3 g/dl (3.4-5.0) L 12/22/17 07:40 Urine Color Straw 12/22/17 07:40 Urine Appearance Clear 12/22/17 07:40 Urine pH 5.0 (5.0-8.0) 12/22/17 07:40 Ur Specific [place] 1.010 (1.001-1.035) 12/22/17 07:40 Urine Protein Negative (NEGATIVE) 12/22/17 07:40 Urine Glucose (UA) Negative (NEGATIVE) 12/22/17 07:40 Urine Ketones Negative (NEGATIVE) 12/22/17 07:40 Urine Blood Negative (NEGATIVE) 12/22/17 07:40 Urine Nitrite Negative (NEGATIVE) 12/22/17 07:40 Urine Bilirubin Negative (<2.0 mg/dL) 12/22/17 07:40 Urine Urobilinogen Negative mg/dL (0.2-1.0) 12/22/17 07:40 Ur Leukocyte Esterase Negative (NEGATIVE) 12/22/17 07:40 RPR Titer Nonreactive (NONREACTIVE) 12/22/17 07:40 - Physical Exam Results Vital Signs: Vital Signs Temperature 96.8 F L 12/23/17 13:59 Pulse Rate 75 12/23/17 13:59 Respiratory Rate 18 12/23/17 13:59 Blood Pressure 127/75 12/23/17 13:59 O2 Sat by Pulse Oximetry (%) Pertinent Admission Physical Exam Findings: withdrawal signs and symptom Laboratory Last Values WBC 6.5 K/mm3 (4.0-10.0) 12/22/17 07:40 RBC 4.71 M/mm3 (4.00-5.60) 12/22/17 07:40 Hgb 13.4 GM/dL (11.7-16.9) 12/22/17 07:40 Hct 41.7 % (35.4-49) 12/22/17 07:40 MCV 88.4 fl (80-96) 12/22/17 07:40 MCH 28.6 pg (25.7-33.7) 12/22/17 07:40 MCHC 32.3 g/dl (32.0-35.9) 12/22/17 07:40 RDW 14.8 % (11.9-15.9) 12/22/17 07:40 Plt Count 295 K/MM3 (134-434) 12/22/17 07:40 MPV 8.9 fl (7.5-11.1) 12/22/17 07:40 Sodium 141 mmol/L (136-145) 12/22/17 07:40 Potassium 4.1 mmol/L (3.5-5.1) 12/22/17 07:40 Chloride 104 mmol/L (98-107) 12/22/17 07:40 Carbon Dioxide 28 mmol/L (21-32) 12/22/17 07:40 Anion Gap 9 MMOL/L (8-16) 12/22/17 07:40 BUN 11 mg/dL (7-18) 12/22/17 07:40 Creatinine 0.9 mg/dL (0.55-1.3) 12/22/17 07:40 Creat Clearance w eGFR > 60 (>60) 12/22/17 07:40 Random Glucose 79 mg/dL (74-106) 12/22/17 07:40 Calcium 9.3 mg/dL (8.5-10.1) 12/22/17 07:40 Total Bilirubin 0.3 mg/dL (0.2-1) 12/22/17 07:40 AST 17 U/L (15-37) 12/22/17 07:40 ALT 18 U/L (13-61) 12/22/17 07:40 Alkaline Phosphatase 74 U/L (45-117) 12/22/17 07:40 Total Protein 6.5 g/dl (6.4-8.2) 12/22/17 07:40 Albumin 3.3 g/dl (3.4-5.0) L 12/22/17 07:40 Urine Color Straw 12/22/17 07:40 Urine Appearance Clear 12/22/17 07:40 Urine pH 5.0 (5.0-8.0) 12/22/17 07:40 Ur Specific [place] 1.010 (1.001-1.035) 12/22/17 07:40 Urine Protein Negative (NEGATIVE) 12/22/17 07:40 Urine Glucose (UA) Negative (NEGATIVE) 12/22/17 07:40 Urine Ketones Negative (NEGATIVE) 12/22/17 07:40 Urine Blood Negative (NEGATIVE) 12/22/17 07:40 Urine Nitrite Negative (NEGATIVE) 12/22/17 07:40 Urine Bilirubin Negative (<2.0 mg/dL) 12/22/17 07:40 Urine Urobilinogen Negative mg/dL (0.2-1.0) 12/22/17 07:40 Ur Leukocyte Esterase Negative (NEGATIVE) 12/22/17 07:40 RPR Titer Nonreactive (NONREACTIVE) 12/22/17 07:40 Vital Signs Temperature 96.8 F L 12/23/17 13:59 Pulse Rate 75 12/23/17 13:59 Respiratory Rate 18 12/23/17 13:59 Blood Pressure 127/75 12/23/17 13:59 O2 Sat by Pulse Oximetry (%) - Medication Discharge Medications: Ambulatory Orders Albuterol Sulfate Inhaler - [Ventolin HFA Inhaler -] 2 inh IH Q4H PRN #1 canister 03/16/14 Esomeprazole Mag Trihydrate [Nexium] 40 mg PO DAILY #30 capsule.ec 03/16/14 traZODone HCL [Desyrel -] 50 mg PO HS 11/19/14 Benztropine Mesylate [Cogentin -] 2 mg PO DAILY 12/21/17 Chlorpromazine [Thorazine -] 50 mg PO DAILY 12/21/17 - Diagnosis (1) Asthma Current Visit: Yes Status: Chronic - AMA Did Patient Leave Against Medical Advice: Yes
[2017-12-23] MEDS ORDERED: chlordiazePOXIDE 5 MG CAPSULE PO SCH (23:00)
[2017-12-24] MEDS ORDERED: chlordiazePOXIDE HCL 10 MG CAPSULE PO SCH (23:00)
== END 2017-12-23 17:28 | disposition left against medical advice (07) | DRG 770 ==
LOC: YASAS 13:23 → Y6N 18:46
PROC: HZ2ZZZZ Detoxification Services for Substance Abuse Treatment (ICD-10-PCS; principal; 2017-12-21)
DX: F10.230 Alcohol dependence with withdrawal, uncomplicated (principal); F14.20 Cocaine dependence, uncomplicated; F12.20 Cannabis dependence, uncomplicated; F17.213 Nicotine dependence, cigarettes, with withdrawal; F31.9 Bipolar disorder, unspecified; F19.24 Other psychoactive substance dependence with psychoactive substance-induced mood disorder; F25.9 Schizoaffective disorder, unspecified; G47.00 Insomnia, unspecified; E86.0 Dehydration; J45.909 Unspecified asthma, uncomplicated; B35.3 Tinea pedis; K21.9 Gastro-esophageal reflux disease without esophagitis; K40.91 Unilateral inguinal hernia, without obstruction or gangrene, recurrent; Z91.5 Personal history of self-harm; Z86.19 Personal history of other infectious and parasitic diseases
CPT/HCPCS: 36415; 80053; 81003; 85027; 86593; 93005; 93010

== ENCOUNTER 2019-11-29 19:13 | Inpatient (IN) | payer OTHER ==
[2019-11-29 19:43] VITALS: BMI 22.7
[2019-11-29] MEDS ORDERED: PERMETHRIN 5% TOPICAL CREAM 60 GM TUBE ONE (20:42)
--- NOTE | 2019-11-29 20:53 | HP ---
CIWA Score Nausea/Vomitin-Mild Nausea/No Vomiting Muscle Tremors: 4-Moderate,w/Arms Extend Anxiety: 4-Mod. Anxious/Guarded Agitation: 4-Moderately Restless Paroxysmal Sweats: No Perspiration Orientation: 0-Oriented Tacttile Disturbances: 3-Moderate Itch/Numb/Burn (itch) Auditory Disturbances: 0-None Visual Disturbances: 0-None Headache: 0-None Present CIWA-Ar Total Score: 16 - Admission Criteria OASAS Guidelines: Admission for Medically Managed Detox: Requires at least one of the followin. CIWA greater than 12 2. Seizures within the past 24 hours 3. Delirium tremens within the past 24 hours 4. Hallucinations within the past 24 hours 5. Acute intervention needed for co occurring medical disorder 6. Acute intervention needed for co occurring psychiatric disorder 7. Severe withdrawal that cannot be handled at a lower level of care (continued vomiting, continued diarrhea, abnormal vital signs) requiring intravenous medication and/or fluids 8. Patient presents the following: Acute intervention needed for co-occurring med or psych disorder (s/p er visit at [facility]. given ativan stabilized and referred here for txment) Admission Criteria Met: Admission criteria met Admitting History and Physical - Past Medical History Gastrointestinal: Yes: GERD Psych: Yes: Addictions, Other (and alcohol) - Smoking History Smoking history: Current every day smoker Have you smoked in the past 12 months: Yes Aproximately how many cigarettes per day: 10 - Alcohol/Substance Use Hx Alcohol Use: Yes Admission ROS [facility] - [facility] Chief Complaint: seeking alcohol detox . c/o withdrawal sx's Allergies/Adverse Reactions: Allergies Allergy/AdvReac Type Severity Reaction Status Date / Time fluphenazine enanthate Allergy Severe Swelling Verified 12/21/17 16:43 [From Prolixin] fluphenazine HCl Allergy Severe Swelling Verified 12/21/17 16:43 [From Prolixin] promethazine HCl Allergy Verified 12/21/17 16:46 [From Phenergan] haloperidol [From Haldol] AdvReac Severe stiffness Verified 12/21/17 16:46 haloperidol lactate AdvReac Severe stiffness Verified 12/21/17 16:46 [From Haldol] History of Present Illness: here for alcohol detox. client is referred by [facility] after presenting there for detox. known to us. last here 2017. client reports daily use alcohol. last use 2 days ago. 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 denies ivdu, drug overdose, si/hi/avh. denies any significant period of clean time in the past year. hhomeless- snf, unemployed. denies legals. note: client seen in [facility] er dx schizophrenia d/o. cocaine use. c/o head lice, hallicinations and substance abuse. client was given thorazine benadryl and ativan. he also recieved 2 txments of permethrin. Exam Limitations: No Limitations - Ebola screening Have you traveled outside of the country in the last 21 days: No Have you had contact with anyone from an Ebola affected area: No Have you been sick,other than usual withdrawal symptoms: No Do you have a fever: No - Review of Systems Constitutional: Changes in sleep, Unintentional Wgt. Loss EENT: reports: Other (sore thorat, missing teeth) Respiratory: reports: No Symptoms reported Cardiac: reports: No Symptoms Reported GI: reports: Nausea, Other (heart burn) : reports: No Symptoms Reported Musculoskeletal: reports: Back Pain (chronic) Integumentary: reports: Other (head lice s/p permethrin) Neuro: reports: Tremors Endocrine: reports: No Symptoms Reported Hematology: reports: No Symptoms Reported Psychiatric: reports: Orientated x3, Anxious, Depressed (denies si), other (schizophrenia) Other Systems: Reviewed and Negative Patient History - Patient Medical History Hx Anemia: No Hx Asthma: Yes Hx Chronic Obstructive Pulmonary Disease (COPD): No Hx Cancer: No Hx Cardiac Disorders: No Hx Congestive Heart Failure: No Hx Hypertension: No Hx Hypercholesterolemia: No Hx Pacemaker: No HX Cerebrovascular Accident: No Hx Seizures: No Hx Dementia: No Hx Diabetes: No Hx Gastrointestinal Disorders: Yes (acid reflux) Hx Liver Disease: No Hx Genitourinary Disorders: No Hx Sexually Transmitted Disorders: Yes (gonorrhea) Hx Renal Disease (ESRD): No Hx Thyroid Disease: No Hx Human Immunodeficiency Virus (HIV): No Hx Hepatitis C: No Hx Depression: Yes Hx Suicide Attempt: Yes (pill overdose at age 26) Hx Bipolar Disorder: Yes Hx Schizophrenia: Yes (schizoaffective disorder) Other Medical History: denies - Patient Surgical History Past Surgical History: Yes Hx Neurologic Surgery: No Hx Cataract Extraction: No Hx Cardiac Surgery: No Hx Lung Surgery: No Hx Breast Surgery: No Hx Breast Biopsy: No Hx Abdominal Surgery: Yes (RIGHT INGUINAL HERNIA REPAIR IN 1998) Hx Appendectomy: No Hx Cholecystectomy: No Hx Genitourinary Surgery: No Hx Section: No Hx Orthopedic Surgery: No Other Surgical History: SX FOR INTESTINAL OBSTRUCTION IN 1990 Anesthesia Reaction: No - PPD History Previous Implant?: Yes Documented Results: Negative w/proof Implanted On Prior [facility] Admission?: Yes Date: 11/19/17 Results: 0 mm PPD to be Administered?: Yes - Smoking Cessation Smoking history: Current every day smoker Have you smoked in the past 12 months: Yes Aproximately how many cigarettes per day: 20 Cigars Per Day: 0 Hx Chewing Tobacco Use: No Initiated information on smoking cessation: Yes 'Breaking Loose' booklet given: 11/29/19 - Substance & Tx. History Hx Alcohol Use: Yes Hx Substance Use: Yes Substance Use Type: Cocaine, Marijuana Hx Substance Use Treatment: Yes ([facility]) - Substances abused Alcohol Other (specify): vodka Substance route: Oral Frequency: Daily Amount used: 2 pints Age of first use: 12 Date of last use: 11/27/19 Cocaine Other (specify): crack Substance route: Smoking Frequency: Daily Amount used: 100 dollars Age of first use: 18 Date of last use: 11/27/19 Admission Physical Exam S - Vital Signs Vital Signs: Vital Signs - 24 hr 11/29/19 19:41 Temperature 97.1 F L Pulse Rate 103 H Respiratory 18 Rate Blood Pressure 156/96 - Physical General Appearance: Yes: Moderate Distress, Tremorous, Irritable, Anxious, Other (unkept) HEENTM: Yes: EOMI, Normocephalic, Normal Voice, CHEPE, Pharynx Normal, Other (horseness, missing teeth) Respiratory: Yes: Chest Non-Tender, Lungs Clear, Normal Breath Sounds, No Respiratory Distress, No Accessory Muscle Use Neck: Yes: No masses,lesions,Nodules, Supple, Trachea in good position Breast: Yes: Breasts Symetrical Cardiology: Yes: Regular Rhythm, S1, S2, Tachycardia Abdominal: Yes: Normal Bowel Sounds, Non Tender, Flat, Soft, Surgical Scar Genitourinary: Yes: Within Normal Limits Back: Yes: Normal Inspection Musculoskeletal: Yes: full range of Motion, Gait Steady Extremities: Yes: Normal Capillary Refill, Normal Range of Motion, Non-Tender, Tremors 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: Yes: Fully Oriented, Alert, Motor Strength 5/5, Depressed Affect Integumentary: Yes: Dry, Warm, Rash (dry itchy, lichenification of skin), Other (callus of the feet with poor hygiene) Lymphatic: Yes: Within Normal Limits - Diagnostic (1) Lives in homeless snf Current Visit: Yes Status: Acute (2) Head lice Current Visit: Yes Status: Acute (3) Alcohol dependence with withdrawal Current Visit: No Status: Acute Qualifiers: Complication of substance-induced condition: uncomplicated Qualified Code(s): F10.230 - Alcohol dependence with withdrawal, uncomplicated (4) Cannabis dependence Current Visit: No Status: Acute (5) Cocaine dependence Current Visit: No Status: Acute Qualifiers: Substance use status: uncomplicated Qualified Code(s): F14.20 - Cocaine dependence, uncomplicated (6) Insomnia Current Visit: No Status: Acute (7) Nicotine dependence Current Visit: No Status: Acute Qualifiers: Nicotine product type: cigarettes Substance use status: in withdrawal Abdiel lified Code(s): F17.213 - Nicotine dependence, cigarettes, with withdrawal (8) Asthma Current Visit: No Status: Chronic (9) Chronic back pain Current Visit: No Status: Chronic Qualifiers: Back pain location: low back pain (10) Gastroesophageal reflux disease Current Visit: No Status: Chronic (11) Schizoaffective disorder Current Visit: No Status: Chronic Qualifiers: Schizoaffective disorder type: unspecified Qualified Code(s): F25.9 - Schizoaffective disorder, unspecified Comment: As per established records and self-report. (12) Lichenification Current Visit: Yes Status: Acute (13) At risk for dehydration due to poor fluid intake Current Visit: Yes Status: Acute Cleared for Admission [facility] - Detox or Rehab S Level of Care: Medically Managed Detox Regimen/Protocol: Ativan Claeared for Rehab Admission: No Breathalyzer - Breathalyzer Breathalyzer: 0 Urine Drug Screen - Test Device Lot number: [id number] Expiration date: 07/01/21 - Control Is test valid?: Yes - Results Drug screen NEGATIVE: No Urine drug screen results: THC-Marijuana, VELASQUEZ-Cocaine, BZO-Benzodiazepines Inpatient Rehab Admission - Rehab Decision to Admit Inpatient rehab admission?: No
[2019-11-29] MEDS ORDERED: MAGNESIUM HYDROX 2400MG/30ML ORAL SUSPENSION 30 ML CUP PO PRN (21:08)
[2019-11-29] MEDS ORDERED: BISMUTH SUBSALICYLATE 524 MG/30 ML UD PO PRN (21:08)
[2019-11-29] MEDS ORDERED: LORazepam 1 MG TABLET PO PRN (21:08)
[2019-11-29] MEDS ORDERED: P-EPHED 60MG/TRIPROLIDI 2.5MG TABLET PO PRN (21:08)
[2019-11-29] MEDS ORDERED: MENTHOL/PHENOL 1 EACH UD MM PRN (21:08)
[2019-11-29] MEDS ORDERED: IBUPROFEN 400 MG TABLET (FP) PO PRN (21:08)
[2019-11-29] MEDS ORDERED: NICOTINE POLACRILEX 2 MG GUM BUC PRN (21:08)
[2019-11-29] MEDS ORDERED: guaiFENesin 200 MG/10 ML 10 ML UNIT-DOSE CUPS PO PRN (21:08)
[2019-11-29] MEDS ORDERED: ONDANSETRON *ODT* 4 MG TABLET SL ONE (21:08)
[2019-11-29] MEDS ORDERED: ACETAMINOPHEN 325 MG TABLET (FP) PO PRN ×2 (21:08)
[2019-11-29] MEDS ORDERED: DICYCLOMINE HCL 10 MG CAPSULE PO PRN (21:08)
[2019-11-29] MEDS ORDERED: MAG HYDROX/AL HYDROX/SIMETH 30 ML UNIT-DOSE CUP PO PRN (21:08)
[2019-11-29] MEDS ORDERED: MAGNESIUM CITRATE 300 ML BOTTLE PO PRN (21:08)
[2019-11-29] MEDS ORDERED: ALBUTEROL SO4 HFA INHALER IH PRN (21:11)
[2019-11-29] MEDS: PANTOPRAZOLE 40 MG TABLET PO SCH (22:57)
[2019-11-29] MEDS: THIAMINE HCL 100 MG TABLET (FP) PO SCH (22:57)
[2019-11-29] MEDS: LORazepam 2 MG TABLET PO SCH (22:57)
[2019-11-29] MEDS: MELATONIN 5 MG TABLETS PO SCH (22:58)
[2019-11-29] MEDS: AMMONIUM LACTATE 12% LOTION 225 GM BOTTLE TP SCH (23:11)
[2019-11-30] MEDS: LORazepam 2 MG TABLET PO SCH ×4 (06:07→22:05)
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
[2019-11-30] MEDS: PRENATAL VITAMINS W/ FOLIC ACID TABLET (FP) PO SCH (10:08)
[2019-11-30] MEDS: PANTOPRAZOLE 40 MG TABLET PO SCH (10:09)
--- NOTE | 2019-11-30 10:10 | PN ---
[facility] CIWA - CIWA Score Nausea/Vomitin-Mild Nausea/No Vomiting Muscle Tremors: 3 Anxiety: 3 Agitation: 2 Paroxysmal Sweats: 2 Orientation: 0-Oriented Tacttile Disturbances: 1-Very Mild Itch/Numbness Auditory Disturbances: 0-None Visual Disturbances: 0-None Headache: 0-None Present CIWA-Ar Total Score: 12 [facility] Progress Note (SOAP) Subjective: Complaints of mild itching, mild nausea,tremors,anxiety, agitation and sweats. Objective: 11/30/19 10:10 Vital Signs 11/30/19 11/30/19 05:03 08:38 Temperature 96.4 F L 98.2 F Pulse Rate 88 114 H Respiratory 16 18 Rate Blood Pressure 146/86 133/112 H O2 Sat by Pulse 96 96 Oximetry (%) Labs pending. Assessment: 11/30/19 10:10 Alert and oriented x 3, in no acute respiratory distress. Full ROM, ambulatory in unit without any assistance. Skin warm to touch, very dry and scaly. Withdrawal symptoms. Plan: Continue detox protocol. Continue Ammonium Lactate for the dry and scaly skin.
[2019-11-30] MEDS: AMMONIUM LACTATE 12% LOTION 225 GM BOTTLE TP SCH (10:12)
[2019-11-30] MEDS: NICOTINE 21 MG/24 HOURS TOPICAL PATCH TD SCH (10:12)
[2019-11-30 11:10] LABS: BILIRUBIN,TOTAL 0.7 mg/dL (0.2-1); BLOOD UREA NITROGEN 13.3 mg/dL (7-18); CALCIUM 8.3 mg/dL (8.5-10.1); CREATININE 1.1 mg/dL (0.55-1.3); POTASSIUM 3.9 mmol/L (3.5-5.1); TOT PROT 6.3 g/dl (6.4-8.2)
[2019-11-30 11:37] LABS: HEMATOCRIT 39.4 % (35.4-49); HEMOGLOBIN 13.1 GM/dL (11.7-16.9); MCHC 33.4 g/dl (32.0-35.9); MEAN CELL VOLUME 89.7 fl (80-96); MEAN PLT VOLUME 8.8 fl (7.5-11.1); PLATELET COUNT 293 K/MM3 (134-434); RBC 4.39 M/mm3 (4.00-5.60); RDW 14.4 % (11.9-15.9); WHITE BLOOD COUNT 8.7 K/mm3 (4.0-10.0)
[2019-11-30] MEDS: METHOCARBAMOL 500 MG TABLET PO PRN (11:42)
--- NOTE | 2019-11-30 12:46 | EKG ---
Test Reason : Blood Pressure : / mmHG Vent. Rate : 090 BPM Atrial Rate : 090 BPM P-R Int : 150 ms QRS Dur : 074 ms QT Int : 368 ms P-R-T Axes : 065 078 058 degrees QTc Int : 450 ms NORMAL SINUS RHYTHM POSSIBLE LEFT ATRIAL ENLARGEMENT BORDERLINE ECG WHEN COMPARED WITH ECG OF 21-DEC-2017 18:54, NO SIGNIFICANT CHANGE WAS FOUND Confirmed by Ryan Moreno ([id number]) on 11/30/2019 12:45:58 PM Referred By: Confirmed By:Ryan Moreno
[2019-11-30] MEDS: traZODone HCL 50 MG TABLET (FP) PO SCH (21:38)
[2019-11-30] MEDS: MELATONIN 5 MG TABLETS PO SCH (21:39)
[2019-11-30] MEDS: THIAMINE HCL 100 MG TABLET (FP) PO SCH (21:39)
[2019-12-01] MEDS: LORazepam 1 MG TABLET PO SCH ×4 (06:32→22:24)
[2019-12-01] MEDS ORDERED: LORazepam 0.5 MG TABLET ONE (09:21)
[2019-12-01] MEDS: PRENATAL VITAMINS W/ FOLIC ACID TABLET (FP) PO SCH (11:38)
[2019-12-01] MEDS: NICOTINE 21 MG/24 HOURS TOPICAL PATCH TD SCH (11:38)
[2019-12-01] MEDS: PANTOPRAZOLE 40 MG TABLET PO SCH (11:38)
[2019-12-01] MEDS: METHOCARBAMOL 500 MG TABLET PO PRN (11:39)
--- NOTE | 2019-12-01 11:48 | PN ---
S CIWA - CIWA Score Nausea/Vomitin Muscle Tremors: 2 Anxiety: 2 Agitation: 2 Paroxysmal Sweats: No Perspiration Orientation: 0-Oriented Tacttile Disturbances: 1-Very Mild Itch/Numbness Auditory Disturbances: 0-None Visual Disturbances: 0-None Headache: 2-Mild CIWA-Ar Total Score: 11 S Progress Note (SOAP) Subjective: alert,irritable,anxious,interrupted sleep,tremor,nausea Objective: 12/01/19 11:45 Vital Signs Temperature 98 F 12/01/19 08:22 Pulse Rate 161 H 12/01/19 08:22 Respiratory Rate 18 12/01/19 08:22 Blood Pressure 157/95 12/01/19 08:22 O2 Sat by Pulse Oximetry (%) 97 12/01/19 08:22
--- NOTE | 2019-12-01 12:01 | PN ---
S CIWA - CIWA Score Nausea/Vomitin Muscle Tremors: 3 Anxiety: 2 Agitation: 2 Paroxysmal Sweats: No Perspiration Orientation: 0-Oriented Tacttile Disturbances: 0-None Auditory Disturbances: 0-None Visual Disturbances: 0-None Headache: 2-Mild CIWA-Ar Total Score: 11 S Progress Note (SOAP) Subjective: alert,irritable,anxious,interrupted sleep,tremor,aching pain,nausea Objective: 12/01/19 11:58 t98,p102,bp157/95,r18,pulse ox 97 12/01/19 11:59 Laboratory Last Values WBC 8.7 K/mm3 (4.0-10.0) 11/30/19 07:30 RBC 4.39 M/mm3 (4.00-5.60) 11/30/19 07:30 Hgb 13.1 GM/dL (11.7-16.9) 11/30/19 07:30 Hct 39.4 % (35.4-49) 11/30/19 07:30 MCV 89.7 fl (80-96) 11/30/19 07:30 MCH 30.0 pg (25.7-33.7) 11/30/19 07:30 MCHC 33.4 g/dl (32.0-35.9) 11/30/19 07:30 RDW 14.4 % (11.9-15.9) 11/30/19 07:30 Plt Count 293 K/MM3 (134-434) 11/30/19 07:30 MPV 8.8 fl (7.5-11.1) 11/30/19 07:30 Sodium 141 mmol/L (136-145) 11/30/19 07:20 Potassium 3.9 mmol/L (3.5-5.1) 11/30/19 07:20 Chloride 107 mmol/L (98-107) 11/30/19 07:20 Carbon Dioxide 30 mmol/L (21-32) 11/30/19 07:20 Anion Gap 5 MMOL/L (8-16) L 11/30/19 07:20 BUN 13.3 mg/dL (7-18) 11/30/19 07:20 Creatinine 1.1 mg/dL (0.55-1.3) 11/30/19 07:20 Est GFR (CKD-EPI)AfAm 87.74 11/30/19 07:20 Est GFR (CKD-EPI)NonAf 75.70 11/30/19 07:20 Random Glucose 107 mg/dL (74-106) H 11/30/19 07:20 Calcium 8.3 mg/dL (8.5-10.1) L 11/30/19 07:20 Total Bilirubin 0.7 mg/dL (0.2-1) 11/30/19 07:20 AST 39 U/L (15-37) H 11/30/19 07:20 ALT 25 U/L (13-61) 11/30/19 07:20 Alkaline Phosphatase 82 U/L (45-117) 11/30/19 07:20 Total Protein 6.3 g/dl (6.4-8.2) L 11/30/19 07:20 Albumin 3.0 g/dl (3.4-5.0) L 11/30/19 07:20 Syphilis Serology Non-reactive (NONREACTIVE) 11/30/19 07:20 COVID-19 ([facility]) Not detected (Not Detected) 11/29/19 20:20 HIV Ag/Ab Combo Qual Negative (NEGATIVE) 11/30/19 07:20 Assessment: 12/01/19 12:00 withdrawal symptom Plan: continue detox ativan regimen
[2019-12-01] MEDS: AMMONIUM LACTATE 12% LOTION 225 GM BOTTLE TP SCH (15:27)
[2019-12-01] MEDS: traZODone HCL 50 MG TABLET (FP) PO SCH (22:24)
[2019-12-01] MEDS: chlorproMAZINE HCL 25 MG TABLET PO SCH (22:24)
[2019-12-01] MEDS: THIAMINE HCL 100 MG TABLET (FP) PO SCH (22:24)
[2019-12-01] MEDS: MELATONIN 5 MG TABLETS PO SCH (22:28)
[2019-12-02] MEDS ORDERED: LORazepam 0.5 MG TABLET PO PRN
[2019-12-02] MEDS: LORazepam 0.5 MG TABLET PO SCH ×4 (06:24→22:12)
[2019-12-02] MEDS: PANTOPRAZOLE 40 MG TABLET PO SCH (10:32)
[2019-12-02] MEDS: AMMONIUM LACTATE 12% LOTION 225 GM BOTTLE TP SCH (10:32)
[2019-12-02] MEDS: PRENATAL VITAMINS W/ FOLIC ACID TABLET (FP) PO SCH (10:32)
[2019-12-02] MEDS: NICOTINE 21 MG/24 HOURS TOPICAL PATCH TD SCH (10:32)
--- NOTE | 2019-12-02 11:28 | PN ---
S CIWA - CIWA Score Nausea/Vomitin-No Nausea/No Vomiting Muscle Tremors: 2 Anxiety: 2 Agitation: 1-Slight > Activity Paroxysmal Sweats: No Perspiration Orientation: 0-Oriented Tacttile Disturbances: 1-Very Mild Itch/Numbness Auditory Disturbances: 0-None Visual Disturbances: 0-None Headache: 1-Very Mild CIWA-Ar Total Score: 7 [facility] Progress Note (SOAP) Subjective: alert,irritable,anxious,interrupted sleep,aching pain Objective: 12/02/19 11:26 Vital Signs Temperature 96.1 F L 12/02/19 08:19 Pulse Rate 79 12/02/19 08:19 Respiratory Rate 20 12/02/19 08:19 Blood Pressure 132/79 12/02/19 08:19 O2 Sat by Pulse Oximetry (%) 96 12/02/19 05:31 Assessment: 12/02/19 11:28 withdrawal symptom Plan: continue detox ativan regimen
[2019-12-02] MEDS ORDERED: hydrOXYzine PAMOATE 25 MG CAPSULE (FP) PO PRN (13:23)
[2019-12-02] MEDS ORDERED: cloNIDine HCL 0.1 MG TABLET PO ONE (13:30)
--- NOTE | 2019-12-02 13:52 | PN ---
[facility] Progress Note Note: Vital Signs Temperature 98.9 F 12/02/19 12:40 Pulse Rate 120 H 12/02/19 12:40 Respiratory Rate 18 12/02/19 12:40 Blood Pressure 155/107 H 12/02/19 12:40 O2 Sat by Pulse Oximetry (%) 95 12/02/19 12:40 anxious will give clonidine 0.1 mg po now and vistaril 25 mgs q 4 hrs prn for anxiety
[2019-12-02] MEDS: traZODone HCL 50 MG TABLET (FP) PO SCH (22:12)
[2019-12-02] MEDS: chlorproMAZINE HCL 25 MG TABLET PO SCH (22:12)
[2019-12-02] MEDS: THIAMINE HCL 100 MG TABLET (FP) PO SCH (22:12)
[2019-12-02] MEDS: MELATONIN 5 MG TABLETS PO SCH (22:13)
[2019-12-03] MEDS ORDERED: LORazepam 0.5 MG TABLET PO ONE (05:00)
[2019-12-03 09:22] VITALS: BP 121/74; PULSE 83; TEMP 98.6
--- NOTE | 2019-12-03 09:40 | PN ---
[facility] CIWA - CIWA Score Nausea/Vomitin-No Nausea/No Vomiting Muscle Tremors: None Anxiety: 1-Mildly Anxious Agitation: 0-Normal Activity Paroxysmal Sweats: No Perspiration Orientation: 0-Oriented Tacttile Disturbances: 0-None Auditory Disturbances: 0-None Visual Disturbances: 0-None Headache: 0-None Present CIWA-Ar Total Score: 1 S Progress Note (SOAP) Subjective: alert,no complaint Objective: 12/03/19 09:37 Vital Signs Temperature 98.6 F 12/03/19 08:45 Pulse Rate 83 12/03/19 08:45 Respiratory Rate 18 12/03/19 08:45 Blood Pressure 121/74 12/03/19 08:45 O2 Sat by Pulse Oximetry (%) 97 12/03/19 08:45 Assessment: 12/03/19 09:38 detox complted,no withdrawal symptom Plan: stable for discharge today,follow up with after care program as arrangement [facility]
--- NOTE | 2019-12-03 09:41 | DS ---
[facility] Detox Discharge Summary Admission Date: 11/29/19 Discharge Date: 12/03/19 - History Present History: Alcohol Dependence, Cannabis Dependence, Cocaine Dependence, Sedative Dependence Additional Comments: alert,oriented x 3 ambulation on the unit lung clear on auscultation bilaterally abdomen soft,no distension,no pain no edema of legs detox completed,no withdrawal symptom stable for discharge today total time spending on discharge 35 minutes follow up with after care program ,[facility] as arrangement Pertinent Past History: asthma gerd schizoaffective disorder - Physical Exam Results Vital Signs: Vital Signs Temperature 98.6 F 12/03/19 08:45 Pulse Rate 83 12/03/19 08:45 Respiratory Rate 18 12/03/19 08:45 Blood Pressure 121/74 12/03/19 08:45 O2 Sat by Pulse Oximetry (%) 97 12/03/19 08:45 Pertinent Admission Physical Exam Findings: withdrawal signs and symptom Vital Signs Temperature 98.6 F 12/03/19 08:45 Pulse Rate 83 12/03/19 08:45 Respiratory Rate 18 12/03/19 08:45 Blood Pressure 121/74 12/03/19 08:45 O2 Sat by Pulse Oximetry (%) 97 12/03/19 08:45 Laboratory Last Values WBC 8.7 K/mm3 (4.0-10.0) 11/30/19 07:30 RBC 4.39 M/mm3 (4.00-5.60) 11/30/19 07:30 Hgb 13.1 GM/dL (11.7-16.9) 11/30/19 07:30 Hct 39.4 % (35.4-49) 11/30/19 07:30 MCV 89.7 fl (80-96) 11/30/19 07:30 MCH 30.0 pg (25.7-33.7) 11/30/19 07:30 MCHC 33.4 g/dl (32.0-35.9) 11/30/19 07:30 RDW 14.4 % (11.9-15.9) 11/30/19 07:30 Plt Count 293 K/MM3 (134-434) 11/30/19 07:30 MPV 8.8 fl (7.5-11.1) 11/30/19 07:30 Sodium 141 mmol/L (136-145) 11/30/19 07:20 Potassium 3.9 mmol/L (3.5-5.1) 11/30/19 07:20 Chloride 107 mmol/L (98-107) 11/30/19 07:20 Carbon Dioxide 30 mmol/L (21-32) 11/30/19 07:20 Anion Gap 5 MMOL/L (8-16) L 11/30/19 07:20 BUN 13.3 mg/dL (7-18) 11/30/19 07:20 Creatinine 1.1 mg/dL (0.55-1.3) 11/30/19 07:20 Est GFR (CKD-EPI)AfAm 87.74 11/30/19 07:20 Est GFR (CKD-EPI)NonAf 75.70 11/30/19 07:20 Random Glucose 107 mg/dL (74-106) H 11/30/19 07:20 Calcium 8.3 mg/dL (8.5-10.1) L 11/30/19 07:20 Total Bilirubin 0.7 mg/dL (0.2-1) 11/30/19 07:20 AST 39 U/L (15-37) H 11/30/19 07:20 ALT 25 U/L (13-61) 11/30/19 07:20 Alkaline Phosphatase 82 U/L (45-117) 11/30/19 07:20 Total Protein 6.3 g/dl (6.4-8.2) L 11/30/19 07:20 Albumin 3.0 g/dl (3.4-5.0) L 11/30/19 07:20 Syphilis Serology Non-reactive (NONREACTIVE) 11/30/19 07:20 COVID-19 ([facility]) Not detected (Not Detected) 11/29/19 20:20 HIV Ag/Ab Combo Qual Negative (NEGATIVE) 11/30/19 07:20 - Treatment Hospital Course: Detox Protocol Followed, Detoxed Safely, Responded well, Discharged Condition Good, Rehab Referral Accepted Patient has Accepted a Rehab Referral to: [facility] - Medication Discharge Medications: Ambulatory Orders Albuterol Sulfate Inhaler - [Ventolin HFA Inhaler -] 2 inh IH Q4H PRN #1 canister 03/16/14 Esomeprazole Mag Trihydrate [Nexium] 40 mg PO DAILY #30 capsule.ec 03/16/14 traZODone HCL [Desyrel -] 50 mg PO HS 11/19/14 Chlorpromazine [Thorazine -] 50 mg PO DAILY 12/21/17 - Diagnosis (1) Alcohol dependence with withdrawal Current Visit: No Status: Acute Qualifiers: Complication of substance-induced condition: uncomplicated Qualified Code(s): F10.230 - Alcohol dependence with withdrawal, uncomplicated (2) Cannabis dependence Current Visit: No Status: Acute (3) Cocaine dependence Current Visit: No Status: Acute Qualifiers: Substance use status: uncomplicated Qualified Code(s): F14.20 - Cocaine dependence, uncomplicated (4) Sedative, hypnotic or anxiolytic dependence Current Visit: No Status: Acute (5) Nicotine dependence Current Visit: No Status: Chronic Qualifiers: Nicotine product type: cigarettes Substance use status: in withdrawal Qualified Code(s): F17.213 - Nicotine dependence, cigarettes, with withdrawal (6) Schizoaffective disorder Current Visit: No Status: Chronic Qualifiers: Schizoaffective disorder type: unspecified Qualified Code(s): F25.9 - Schizoaffective disorder, unspecified (7) Tinea pedis of both feet Current Visit: No Status: Chronic - AMA Did Patient Leave Against Medical Advice: No
[2019-12-03] MEDS: AMMONIUM LACTATE 12% LOTION 225 GM BOTTLE TP SCH (10:48)
[2019-12-03] MEDS: PANTOPRAZOLE 40 MG TABLET PO SCH (10:48)
[2019-12-03] MEDS: PRENATAL VITAMINS W/ FOLIC ACID TABLET (FP) PO SCH (10:48)
[2019-12-03] MEDS: NICOTINE 21 MG/24 HOURS TOPICAL PATCH TD SCH (10:48)
[2019-12-03 16:29] LABS: URINE APPEARANCE CLEAR; URINE BILIRUBIN NEGATIVE (NEGATIVE); URINE COLOR YELLOW; URINE GLUCOSE (UA) NEGATIVE (NEGATIVE); URINE KETONE NEGATIVE (NEGATIVE); URINE LEUK ESTERASE NEGATIVE (NEGATIVE); URINE NITRITE NEGATIVE (NEGATIVE); URINE PROTEIN NEGATIVE (NEGATIVE); URINE UROBILINOGEN 0.2 mg/dL (0.2-1.0)
== END 2019-12-03 12:23 | disposition other institution (70) | DRG 774 ==
LOC: YASAS 19:13 → Y6N 21:09
PROVIDERS: ADMIT Allergy & Immunology; ATTEND Allergy & Immunology
PROC: HZ2ZZZZ Detoxification Services for Substance Abuse Treatment (ICD-10-PCS; principal; 2019-11-29)
DX: F10.230 Alcohol dependence with withdrawal, uncomplicated (principal); F14.20 Cocaine dependence, uncomplicated; F13.20 Sedative, hypnotic or anxiolytic dependence, uncomplicated; F12.20 Cannabis dependence, uncomplicated; F17.213 Nicotine dependence, cigarettes, with withdrawal; F19.282 Other psychoactive substance dependence with psychoactive substance-induced sleep disorder; F25.9 Schizoaffective disorder, unspecified; F31.9 Bipolar disorder, unspecified; J45.909 Unspecified asthma, uncomplicated; K21.9 Gastro-esophageal reflux disease without esophagitis; K40.91 Unilateral inguinal hernia, without obstruction or gangrene, recurrent; B35.3 Tinea pedis; B85.0 Pediculosis due to Pediculus humanus capitis; L28.0 Lichen simplex chronicus; L85.3 Xerosis cutis; R63.8 Other symptoms and signs concerning food and fluid intake; Z91.5 Personal history of self-harm; Z56.0 Unemployment, unspecified; Z59.0 Homelessness
CPT/HCPCS: 36415; 80053; 81003; 85027; 86780; 87389; 93005; 93010; J0735; U0003

== ENCOUNTER 2019-12-03 12:31 | Inpatient (IN) | payer OTHER ==
[2019-12-03] MEDS ORDERED: MAGNESIUM CITRATE 300 ML BOTTLE PO PRN (14:26)
[2019-12-03] MEDS ORDERED: P-EPHED 60MG/TRIPROLIDI 2.5MG TABLET PO PRN (14:26)
[2019-12-03] MEDS ORDERED: IBUPROFEN 400 MG TABLET (FP) PO PRN (14:26)
[2019-12-03] MEDS ORDERED: MAG HYDROX/AL HYDROX/SIMETH 30 ML UNIT-DOSE CUP PO PRN (14:26)
[2019-12-03] MEDS ORDERED: MENTHOL/PHENOL 1 EACH UD MM PRN (14:26)
[2019-12-03] MEDS ORDERED: ACETAMINOPHEN 325 MG TABLET (FP) PO PRN (14:26)
[2019-12-03] MEDS ORDERED: guaiFENesin 200 MG/10 ML 10 ML UNIT-DOSE CUPS PO PRN (14:26)
[2019-12-03] MEDS ORDERED: LOPERAMIDE HCL 2 MG CAPSULE PO PRN (14:26)
[2019-12-03] MEDS ORDERED: MAGNESIUM HYDROX 2400MG/30ML ORAL SUSPENSION 30 ML CUP PO PRN (14:26)
[2019-12-03] MEDS ORDERED: AMMONIUM LACTATE 12% LOTION 225 GM BOTTLE TP PRN (15:02)
--- NOTE | 2019-12-03 15:03 | HP ---
[facility] Rehab Assess/Revision - Admission History Admitted to Rehab from: [address] Date of Admission to Rehab: 12/03/19 - Vital signs Vital Signs: Vital Signs Period Temp Pulse Resp BP Sys/Aldana Pulse Ox Last 24 Hr 98.2 F 83 16 146/76 96 - Findings Detox History & Physical reviewed: Yes Concur with findings: Yes Comments/Additional Findings: Pt is a 54 y/o male admitted to rehab from [address] [place] [address] detox tx, hx of alcohol and cocaine use disorder. As per detox H/P, pt is homeless and was treated at [facility] for head lice(s/p Permethrine t x), hallucinations. PMHx:Asthma, GERD; Severe Dry skin; callus of the feet. SHx:right iguinal Hernia Repair-1998; Intestinal obstruction-1990. Psych hx:Schizoaffective disorder. Alert o x 3. nad. oob ambulating with steady gait. extremities:dry, no edema;poor skin turgor; left ankle skin darkened- lichenified. s/p detox. Increase po fluids. Ammonia Lactate lotion to affected skin daily. P-increase po fluids. Ensure as directed Inpatient Rehab Admission - Rehab Decision to Admit Inpatient rehab admission?: Yes - Initial Determination Are CD services needed?: Yes Free of communicable disease: Yes Not in need of hospitalization: Yes - Rehab Admission Criteria Previous failed treatment: Yes Poor recovery environment: Yes Comorbidities: Yes Lacks judgement: Yes Patient is meeting Inpatient Rehab admission criteria:: Yes
[2019-12-03] MEDS ORDERED: ALBUTEROL SO4 HFA INHALER IH PRN (15:11)
[2019-12-03] MEDS: THIAMINE HCL 100 MG TABLET (FP) PO SCH (21:38)
[2019-12-03] MEDS: traZODone HCL 50 MG TABLET (FP) PO SCH (21:38)
[2019-12-03] MEDS: MELATONIN 5 MG TABLETS PO SCH (21:38)
[2019-12-03] MEDS: hydrOXYzine PAMOATE 25 MG CAPSULE (FP) PO PRN (21:38)
[2019-12-03] MEDS: chlorproMAZINE HCL 25 MG TABLET PO SCH (21:38)
[2019-12-04] MEDS: PANTOPRAZOLE 40 MG TABLET PO SCH (10:31)
[2019-12-04] MEDS: PRENATAL VITAMINS W/ FOLIC ACID TABLET (FP) PO SCH (10:31)
[2019-12-04] MEDS: traZODone HCL 50 MG TABLET (FP) PO SCH (21:59)
[2019-12-04] MEDS: chlorproMAZINE HCL 25 MG TABLET PO SCH (21:59)
[2019-12-04] MEDS: MELATONIN 5 MG TABLETS PO SCH (21:59)
[2019-12-04] MEDS: THIAMINE HCL 100 MG TABLET (FP) PO SCH (22:00)
[2019-12-05] MEDS: PRENATAL VITAMINS W/ FOLIC ACID TABLET (FP) PO SCH (10:48)
[2019-12-05] MEDS: PANTOPRAZOLE 40 MG TABLET PO SCH (10:48)
[2019-12-05] MEDS: chlorproMAZINE HCL 25 MG TABLET PO SCH (21:31)
[2019-12-05] MEDS: THIAMINE HCL 100 MG TABLET (FP) PO SCH (21:31)
[2019-12-05] MEDS: MELATONIN 5 MG TABLETS PO SCH (21:31)
[2019-12-05] MEDS: traZODone HCL 50 MG TABLET (FP) PO SCH (21:31)
[2019-12-06] MEDS: PANTOPRAZOLE 40 MG TABLET PO SCH (10:35)
[2019-12-06] MEDS: PRENATAL VITAMINS W/ FOLIC ACID TABLET (FP) PO SCH (10:35)
[2019-12-06] MEDS: hydrOXYzine PAMOATE 25 MG CAPSULE (FP) PO PRN (18:43)
[2019-12-06] MEDS: traZODone HCL 50 MG TABLET (FP) PO SCH (21:36)
[2019-12-06] MEDS: THIAMINE HCL 100 MG TABLET (FP) PO SCH (21:36)
[2019-12-06] MEDS: MELATONIN 5 MG TABLETS PO SCH (21:36)
[2019-12-06] MEDS: chlorproMAZINE HCL 25 MG TABLET PO SCH (21:36)
[2019-12-07] MEDS: PRENATAL VITAMINS W/ FOLIC ACID TABLET (FP) PO SCH (10:49)
[2019-12-07] MEDS: PANTOPRAZOLE 40 MG TABLET PO SCH (10:49)
[2019-12-07] MEDS: hydrOXYzine PAMOATE 25 MG CAPSULE (FP) PO PRN ×2 (13:56→21:40)
[2019-12-07] MEDS: chlorproMAZINE HCL 25 MG TABLET PO SCH (21:39)
[2019-12-07] MEDS: THIAMINE HCL 100 MG TABLET (FP) PO SCH (21:40)
[2019-12-07] MEDS: MELATONIN 5 MG TABLETS PO SCH (21:40)
[2019-12-07] MEDS: traZODone HCL 50 MG TABLET (FP) PO SCH (21:40)
[2019-12-08] MEDS: hydrOXYzine PAMOATE 25 MG CAPSULE (FP) PO PRN ×2 (11:19→21:29)
[2019-12-08] MEDS: PRENATAL VITAMINS W/ FOLIC ACID TABLET (FP) PO SCH (11:19)
[2019-12-08] MEDS: PANTOPRAZOLE 40 MG TABLET PO SCH (11:19)
[2019-12-08] MEDS: chlorproMAZINE HCL 25 MG TABLET PO SCH (21:28)
[2019-12-08] MEDS: traZODone HCL 50 MG TABLET (FP) PO SCH (21:28)
[2019-12-08] MEDS: MELATONIN 5 MG TABLETS PO SCH (21:30)
[2019-12-08] MEDS: THIAMINE HCL 100 MG TABLET (FP) PO SCH (21:30)
[2019-12-09] MEDS: PANTOPRAZOLE 40 MG TABLET PO SCH (10:50)
[2019-12-09] MEDS: PRENATAL VITAMINS W/ FOLIC ACID TABLET (FP) PO SCH (10:50)
[2019-12-09] MEDS: hydrOXYzine PAMOATE 25 MG CAPSULE (FP) PO PRN ×2 (14:56→21:55)
[2019-12-09] MEDS: NICOTINE POLACRILEX 2 MG GUM BUC PRN (21:55)
[2019-12-09] MEDS: MELATONIN 5 MG TABLETS PO SCH (21:55)
[2019-12-09] MEDS: chlorproMAZINE HCL 25 MG TABLET PO SCH (21:55)
[2019-12-09] MEDS: THIAMINE HCL 100 MG TABLET (FP) PO SCH (21:55)
[2019-12-09] MEDS: traZODone HCL 50 MG TABLET (FP) PO SCH (21:55)
[2019-12-10] MEDS: PANTOPRAZOLE 40 MG TABLET PO SCH (12:21)
[2019-12-10] MEDS: PRENATAL VITAMINS W/ FOLIC ACID TABLET (FP) PO SCH (12:21)
[2019-12-10] MEDS: THIAMINE HCL 100 MG TABLET (FP) PO SCH (22:06)
[2019-12-10] MEDS: hydrOXYzine PAMOATE 25 MG CAPSULE (FP) PO PRN (22:06)
[2019-12-10] MEDS: chlorproMAZINE HCL 25 MG TABLET PO SCH (22:06)
[2019-12-10] MEDS: traZODone HCL 50 MG TABLET (FP) PO SCH (22:06)
[2019-12-10] MEDS: MELATONIN 5 MG TABLETS PO SCH (22:06)
[2019-12-11] MEDS: PRENATAL VITAMINS W/ FOLIC ACID TABLET (FP) PO SCH (09:38)
[2019-12-11] MEDS: PANTOPRAZOLE 40 MG TABLET PO SCH (09:38)
[2019-12-11] MEDS: THIAMINE HCL 100 MG TABLET (FP) PO SCH (21:11)
[2019-12-11] MEDS: traZODone HCL 50 MG TABLET (FP) PO SCH (21:11)
[2019-12-11] MEDS: hydrOXYzine PAMOATE 25 MG CAPSULE (FP) PO PRN (21:11)
[2019-12-11] MEDS: chlorproMAZINE HCL 25 MG TABLET PO SCH (21:12)
[2019-12-11] MEDS: MELATONIN 5 MG TABLETS PO SCH (21:12)
[2019-12-12] MEDS: PANTOPRAZOLE 40 MG TABLET PO SCH (11:12)
[2019-12-12] MEDS: PRENATAL VITAMINS W/ FOLIC ACID TABLET (FP) PO SCH (11:12)
[2019-12-12] MEDS: THIAMINE HCL 100 MG TABLET (FP) PO SCH (22:20)
[2019-12-12] MEDS: traZODone HCL 50 MG TABLET (FP) PO SCH (22:20)
[2019-12-12] MEDS: MELATONIN 5 MG TABLETS PO SCH (22:21)
[2019-12-12] MEDS: chlorproMAZINE HCL 25 MG TABLET PO SCH (22:22)
[2019-12-13] MEDS: PANTOPRAZOLE 40 MG TABLET PO SCH (10:26)
[2019-12-13] MEDS: PRENATAL VITAMINS W/ FOLIC ACID TABLET (FP) PO SCH (10:26)
[2019-12-13] MEDS: hydrOXYzine PAMOATE 25 MG CAPSULE (FP) PO PRN ×2 (14:01→21:33)
[2019-12-13] MEDS: THIAMINE HCL 100 MG TABLET (FP) PO SCH (21:33)
[2019-12-13] MEDS: traZODone HCL 50 MG TABLET (FP) PO SCH (21:33)
[2019-12-13] MEDS: MELATONIN 5 MG TABLETS PO SCH (21:33)
[2019-12-13] MEDS: chlorproMAZINE HCL 25 MG TABLET PO SCH (21:33)
[2019-12-14] MEDS: PANTOPRAZOLE 40 MG TABLET PO SCH (10:54)
[2019-12-14] MEDS: PRENATAL VITAMINS W/ FOLIC ACID TABLET (FP) PO SCH (10:54)
[2019-12-14] MEDS: hydrOXYzine PAMOATE 25 MG CAPSULE (FP) PO PRN ×2 (10:54→22:02)
[2019-12-14] MEDS: traZODone HCL 50 MG TABLET (FP) PO SCH (22:02)
[2019-12-14] MEDS: THIAMINE HCL 100 MG TABLET (FP) PO SCH (22:02)
[2019-12-14] MEDS: chlorproMAZINE HCL 25 MG TABLET PO SCH (22:03)
[2019-12-14] MEDS: MELATONIN 5 MG TABLETS PO SCH (22:03)
[2019-12-15] MEDS: PANTOPRAZOLE 40 MG TABLET PO SCH (10:17)
[2019-12-15] MEDS: PRENATAL VITAMINS W/ FOLIC ACID TABLET (FP) PO SCH (10:17)
[2019-12-15] MEDS: hydrOXYzine PAMOATE 25 MG CAPSULE (FP) PO PRN ×2 (13:59→21:55)
[2019-12-15] MEDS: NICOTINE POLACRILEX 2 MG GUM BUC PRN (13:59)
[2019-12-15] MEDS: chlorproMAZINE HCL 25 MG TABLET PO SCH (21:55)
[2019-12-15] MEDS: THIAMINE HCL 100 MG TABLET (FP) PO SCH (21:55)
[2019-12-15] MEDS: MELATONIN 5 MG TABLETS PO SCH (21:55)
[2019-12-15] MEDS: traZODone HCL 50 MG TABLET (FP) PO SCH (21:55)
[2019-12-16] MEDS: PANTOPRAZOLE 40 MG TABLET PO SCH (10:53)
[2019-12-16] MEDS: PRENATAL VITAMINS W/ FOLIC ACID TABLET (FP) PO SCH (10:53)
--- NOTE | 2019-12-16 11:21 | PN ---
[facility] Progress Note Note: Patient is scheduled for discharge tomorrow, Scripts for 30 days supply of medications(Thorazine 50 mg/hs, Trazadone 50 mg/hs) will be electronically transmitted to [facility], [address] [place] [id number]
[2019-12-16] MEDS: hydrOXYzine PAMOATE 25 MG CAPSULE (FP) PO PRN (21:49)
[2019-12-16] MEDS: traZODone HCL 50 MG TABLET (FP) PO SCH (21:49)
[2019-12-16] MEDS: THIAMINE HCL 100 MG TABLET (FP) PO SCH (21:49)
[2019-12-16] MEDS: chlorproMAZINE HCL 25 MG TABLET PO SCH (21:50)
[2019-12-16] MEDS: MELATONIN 5 MG TABLETS PO SCH (21:50)
[2019-12-17 07:03] VITALS: BP 119/85; PULSE 78; TEMP 98.4
[2019-12-17] MEDS: PANTOPRAZOLE 40 MG TABLET PO SCH ×2 (09:25→09:29)
[2019-12-17] MEDS: PRENATAL VITAMINS W/ FOLIC ACID TABLET (FP) PO SCH (09:25)
--- NOTE | 2019-12-17 09:46 | DS ---
[facility] Rehab Discharge Summary - [facility] Rehab Discharge Summary Admission Date: 12/03/19 Discharge Date: 12/17/19 - History Present History: Alcohol dependence, Cannabis dependence, Cocaine dependence Pertinent Past History: Asthma GERD Atopic Dermatitis - Discharge Physical Exam Vital Signs: Vital Signs Temperature 98.4 F 12/17/19 06:15 Pulse Rate 78 12/17/19 06:15 Respiratory Rate 18 12/17/19 06:15 Blood Pressure 119/85 12/17/19 06:15 O2 Sat by Pulse Oximetry (%) 96 12/17/19 06:15 General:WDWN male, Alert o x 3, nad,denies s/h/i cardiac:s1 s2, rrr lungs:ctab MSK:Active FROM,all limbs; oob ambulating with steady gait; no edema. Skin:skin intact; old healed scars on LEs.left ankle skin darkened-lichenified skin tissue-improved with ammonium lactate lotion tx while in treatment. Pertinent Admission Physical Exam Findings: Rash on lower extremities - Treatment Discharge Condition: Discharge condition good, Rehabilitated safely, Responded well, Outpatient referral accepted Hospital Course: pt is a 54 y/o male with a hx of BENITA admitted to rehab and discharging today. Pt met with his counselor and has been referred to CD aftercare. - Medication Discharge Medications: Ambulatory Orders Albuterol Sulfate Inhaler - [Ventolin HFA Inhaler -] 2 inh IH Q4H PRN #1 canister 03/16/14 Ammonium Lactate Lotion [Lac-Hydrin 12] 1 applic TP DAILY bottle 12/03/19 Pantoprazole Sodium [Protonix -] 40 mg PO DAILY tablet.ec 12/03/19 Chlorpromazine [Thorazine -] 50 mg PO DAILY #30 tablet 12/16/19 traZODone HCL [Desyrel -] 50 mg PO HS #30 tablet 12/16/19 - Medication-Assisted Treatment (MAT) Medication-Assisted Treatment (MAT): No - Discharge Instructions Diet, activity, other medical instructions: Diet:Regular Activity:oob ad zion Other medical instructions:follow up with CD aftercare as recommended. follow up with primary care management at [facility] as needed. - Diagnosis (1) Weight decreased Status: Acute (2) Asthma Status: Chronic (3) Gastroesophageal reflux disease Status: Resolved (4) Alcohol dependence Status: Chronic Qualifiers: Substance use status: uncomplicated Qualified Code(s): F10.20 - Alcohol dependence, uncomplicated (5) Opioid dependence Status: Chronic Qualifiers: Substance use status: uncomplicated Qualified Code(s): F11.20 - Opioid dependence, uncomplicated (6) Cocaine dependence Status: Chronic Qualifiers: Substance use status: uncomplicated Qualified Code(s): F14.20 - Cocaine dependence, uncomplicated (7) Nicotine dependence Status: Chronic Qualifiers: Nicotine product type: cigarettes Substance use status: uncomplicated Qualified Code(s): F17.210 - Nicotine dependence, cigarettes, uncomplicated (8) Lives in homeless assisted Status: Chronic (9) Lichenification Status: Chronic - Follow-up Referral Minutes to complete discharge: 20 - AMA Did Patient Leave Against Medical Advice: No
== END 2019-12-17 09:35 | disposition home or self-care (01) | DRG 772 ==
LOC: YASAS 12:31 → Y5N 12:32
PROVIDERS: ADMIT Allergy & Immunology; ATTEND Allergy & Immunology
PROC: HZ42ZZZ Group Counseling for Substance Abuse Treatment, Cognitive-Behavioral (ICD-10-PCS; principal; 2019-12-03)
DX: F11.20 Opioid dependence, uncomplicated (principal); F10.20 Alcohol dependence, uncomplicated; F14.20 Cocaine dependence, uncomplicated; F12.20 Cannabis dependence, uncomplicated; F17.210 Nicotine dependence, cigarettes, uncomplicated; F25.9 Schizoaffective disorder, unspecified; J45.909 Unspecified asthma, uncomplicated; K21.9 Gastro-esophageal reflux disease without esophagitis; L20.89 Other atopic dermatitis; L28.0 Lichen simplex chronicus; L85.3 Xerosis cutis; R23.8 Other skin changes; R63.4 Abnormal weight loss; Z88.8 Allergy status to other drugs, medicaments and biological substances; Z59.0 Homelessness

== ENCOUNTER 2020-02-15 09:40 | Inpatient (IN) | payer OTHER ==
[2020-02-15 10:19] VITALS: BMI 22.7
[2020-02-15] MEDS ORDERED: METHOCARBAMOL 500 MG TABLET PO PRN (10:38)
[2020-02-15] MEDS ORDERED: MAGNESIUM CITRATE 300 ML BOTTLE PO PRN (10:38)
[2020-02-15] MEDS ORDERED: ACETAMINOPHEN 325 MG TABLET (FP) PO PRN ×2 (10:38)
[2020-02-15] MEDS ORDERED: NICOTINE POLACRILEX 2 MG GUM BUC PRN (10:38)
[2020-02-15] MEDS ORDERED: IBUPROFEN 400 MG TABLET (FP) PO PRN (10:38)
[2020-02-15] MEDS ORDERED: ONDANSETRON *ODT* 4 MG TABLET SL PRN (10:38)
[2020-02-15] MEDS ORDERED: MAG HYDROX/AL HYDROX/SIMETH 30 ML UNIT-DOSE CUP PO PRN (10:38)
[2020-02-15] MEDS ORDERED: MENTHOL/PHENOL 1 EACH UD MM PRN (10:38)
[2020-02-15] MEDS ORDERED: chlordiazePOXIDE HCL 25 MG CAPSULE PO PRN (10:38)
[2020-02-15] MEDS ORDERED: BISMUTH SUBSALICYLATE 524 MG/30 ML UD PO PRN (10:38)
[2020-02-15] MEDS ORDERED: MAGNESIUM HYDROX 2400MG/30ML ORAL SUSPENSION 30 ML CUP PO PRN (10:38)
[2020-02-15] MEDS ORDERED: ALBUTEROL SO4 HFA INHALER IH PRN (10:41)
[2020-02-15] MEDS: chlordiazePOXIDE HCL 25 MG CAPSULE PO SCH ×3 (12:15→22:15)
[2020-02-15] MEDS: hydrOXYzine PAMOATE 25 MG CAPSULE (FP) PO SCH ×3 (14:10→22:55)
[2020-02-15] MEDS: traZODone HCL 50 MG TABLET (FP) PO SCH (22:14)
[2020-02-15] MEDS: THIAMINE HCL 100 MG TABLET (FP) PO SCH (22:14)
[2020-02-15] MEDS: MELATONIN 5 MG TABLETS PO SCH (22:54)
[2020-02-16] MEDS: chlordiazePOXIDE HCL 25 MG CAPSULE PO SCH ×4 (06:18→22:20)
[2020-02-16] MEDS: hydrOXYzine PAMOATE 25 MG CAPSULE (FP) PO SCH ×3 (06:19→15:07)
[2020-02-16 10:20] LABS: POTASSIUM 3.5 mmol/L (3.5-5.1)
[2020-02-16 10:24] LABS: HEMATOCRIT 43.5 % (35.4-49); HEMOGLOBIN 14.5 GM/dL (11.7-16.9); MCHC 33.4 g/dl (32.0-35.9); MEAN CELL VOLUME 86.7 fl (80-96); MEAN PLT VOLUME 9.1 fl (7.5-11.1); PLATELET COUNT 245 K/MM3 (134-434); RBC 5.02 M/mm3 (4.00-5.60); RDW 13.2 % (11.9-15.9); WHITE BLOOD COUNT 7.3 K/mm3 (4.0-10.0)
[2020-02-16 10:32] LABS: ALBUMIN 3.8 g/dl (3.4-5.0); BLOOD UREA NITROGEN 19.3 mg/dL (7-18); CALCIUM 8.7 mg/dL (8.5-10.1)
[2020-02-16 10:35] LABS: CREATININE 1.2 mg/dL (0.55-1.3)
[2020-02-16 10:37] LABS: BILIRUBIN,TOTAL 1.2 mg/dL (0.2-1); TOT PROT 7.4 g/dl (6.4-8.2)
[2020-02-16] MEDS: PANTOPRAZOLE 40 MG TABLET PO SCH (10:39)
[2020-02-16] MEDS: PRENATAL VITAMINS W/ FOLIC ACID TABLET (FP) PO SCH (10:39)
[2020-02-16] MEDS: NICOTINE 21 MG/24 HOURS TOPICAL PATCH TD SCH (10:40)
[2020-02-16] MEDS ORDERED: hydrOXYzine PAMOATE 25 MG CAPSULE (FP) PO PRN (14:44)
[2020-02-16] MEDS: traZODone HCL 50 MG TABLET (FP) PO SCH (22:20)
[2020-02-16] MEDS: THIAMINE HCL 100 MG TABLET (FP) PO SCH (22:20)
[2020-02-16] MEDS: MELATONIN 5 MG TABLETS PO SCH (23:29)
[2020-02-17] MEDS: chlordiazePOXIDE HCL 25 MG CAPSULE PO SCH ×4 (06:49→22:27)
[2020-02-17 10:18] LABS: POTASSIUM 3.9 mmol/L (3.5-5.1)
[2020-02-17 10:20] LABS: BLOOD UREA NITROGEN 14.7 mg/dL (7-18); CALCIUM 8.2 mg/dL (8.5-10.1)
[2020-02-17] MEDS: PRENATAL VITAMINS W/ FOLIC ACID TABLET (FP) PO SCH (10:24)
[2020-02-17] MEDS: PANTOPRAZOLE 40 MG TABLET PO SCH (10:24)
[2020-02-17] MEDS: NICOTINE 21 MG/24 HOURS TOPICAL PATCH TD SCH (10:26)
[2020-02-17] MEDS: MELATONIN 5 MG TABLETS PO SCH (22:26)
[2020-02-17] MEDS: THIAMINE HCL 100 MG TABLET (FP) PO SCH (22:26)
[2020-02-17] MEDS: traZODone HCL 50 MG TABLET (FP) PO SCH (22:26)
[2020-02-18] MEDS ORDERED: chlordiazePOXIDE HCL 10 MG CAPSULE PO PRN
[2020-02-18] MEDS: chlordiazePOXIDE HCL 10 MG CAPSULE PO SCH ×4 (06:15→22:07)
[2020-02-18] MEDS: PRENATAL VITAMINS W/ FOLIC ACID TABLET (FP) PO SCH (10:29)
[2020-02-18] MEDS: PANTOPRAZOLE 40 MG TABLET PO SCH (10:29)
[2020-02-18] MEDS: NICOTINE 21 MG/24 HOURS TOPICAL PATCH TD SCH (10:29)
[2020-02-18] MEDS: THIAMINE HCL 100 MG TABLET (FP) PO SCH (22:06)
[2020-02-18] MEDS: traZODone HCL 50 MG TABLET (FP) PO SCH (22:07)
[2020-02-18] MEDS: MELATONIN 5 MG TABLETS PO SCH (22:07)
[2020-02-19] MEDS: chlordiazePOXIDE HCL 10 MG CAPSULE PO SCH ×2 (06:43→17:27)
[2020-02-19] MEDS: PANTOPRAZOLE 40 MG TABLET PO SCH (10:10)
[2020-02-19] MEDS: NICOTINE 21 MG/24 HOURS TOPICAL PATCH TD SCH (10:10)
[2020-02-19] MEDS: PRENATAL VITAMINS W/ FOLIC ACID TABLET (FP) PO SCH (10:10)
[2020-02-19] MEDS: MELATONIN 5 MG TABLETS PO SCH (22:06)
[2020-02-19] MEDS: traZODone HCL 50 MG TABLET (FP) PO SCH (22:06)
[2020-02-19] MEDS: THIAMINE HCL 100 MG TABLET (FP) PO SCH (22:06)
[2020-02-20] MEDS ORDERED: chlordiazePOXIDE HCL 10 MG CAPSULE PO ONE (05:00)
[2020-02-20 09:42] VITALS: BP 136/67; PULSE 89; TEMP 98.2
[2020-02-20] MEDS: NICOTINE 21 MG/24 HOURS TOPICAL PATCH TD SCH (10:24)
[2020-02-20] MEDS: PANTOPRAZOLE 40 MG TABLET PO SCH (10:24)
[2020-02-20] MEDS: PRENATAL VITAMINS W/ FOLIC ACID TABLET (FP) PO SCH (10:24)
== END 2020-02-20 10:31 | disposition home or self-care (01) | DRG 774 ==
LOC: YASAS 09:40 → Y6N 11:05
PROVIDERS: ADMIT Allergy & Immunology; ATTEND Allergy & Immunology
PROC: HZ2ZZZZ Detoxification Services for Substance Abuse Treatment (ICD-10-PCS; principal; 2020-02-15)
DX: F10.230 Alcohol dependence with withdrawal, uncomplicated (principal); F14.20 Cocaine dependence, uncomplicated; F13.20 Sedative, hypnotic or anxiolytic dependence, uncomplicated; F12.20 Cannabis dependence, uncomplicated; F17.210 Nicotine dependence, cigarettes, uncomplicated; F19.282 Other psychoactive substance dependence with psychoactive substance-induced sleep disorder; F19.24 Other psychoactive substance dependence with psychoactive substance-induced mood disorder; F31.9 Bipolar disorder, unspecified; F41.9 Anxiety disorder, unspecified; J45.909 Unspecified asthma, uncomplicated; L28.0 Lichen simplex chronicus; M54.5 Low back pain; G89.29 Other chronic pain; Z87.19 Personal history of other diseases of the digestive system; Z98.890 Other specified postprocedural states; Z88.8 Allergy status to other drugs, medicaments and biological substances; Z59.0 Homelessness
CPT/HCPCS: 36415; 80048; 80053; 82947; 85027; 86780; C9803; U0003

== ENCOUNTER 2020-06-29 12:32 | Inpatient (IN) | payer OTHER ==
[2020-06-29 13:49] VITALS: BMI 21.6
[2020-06-29] MEDS ORDERED: ALBUTEROL SO4 HFA INHALER IH PRN (14:50)
[2020-06-29] MEDS ORDERED: MAG HYDROX/AL HYDROX/SIMETH 30 ML UNIT-DOSE CUP PO PRN (14:51)
[2020-06-29] MEDS ORDERED: IBUPROFEN 400 MG TABLET (FP) PO PRN (14:51)
[2020-06-29] MEDS ORDERED: METHOCARBAMOL 500 MG TABLET PO PRN (14:51)
[2020-06-29] MEDS ORDERED: MAGNESIUM HYDROX 2400MG/30ML ORAL SUSPENSION 30 ML CUP PO PRN (14:51)
[2020-06-29] MEDS ORDERED: ONDANSETRON *ODT* 4 MG TABLET SL PRN (14:51)
[2020-06-29] MEDS ORDERED: NICOTINE POLACRILEX 2 MG GUM BUC PRN (14:51)
[2020-06-29] MEDS ORDERED: BISMUTH SUBSALICYLATE 524 MG/30 ML UD PO PRN (14:51)
[2020-06-29] MEDS ORDERED: ACETAMINOPHEN 325 MG TABLET (FP) PO PRN ×2 (14:51)
[2020-06-29] MEDS ORDERED: chlordiazePOXIDE HCL 25 MG CAPSULE PO PRN (14:51)
[2020-06-29] MEDS ORDERED: NALOXONE (NARCAN) HCL 4 MG/0.1 ML SPRAY NS PRN (14:51)
[2020-06-29] MEDS ORDERED: MAGNESIUM CITRATE 300 ML BOTTLE PO PRN (14:51)
[2020-06-29] MEDS ORDERED: MENTHOL/PHENOL 1 EACH UD MM PRN (14:51)
[2020-06-29] MEDS: PRENATAL VITAMINS W/ FOLIC ACID TABLET (FP) PO SCH (15:33)
[2020-06-29] MEDS: hydrOXYzine PAMOATE 25 MG CAPSULE (FP) PO SCH ×2 (17:34→22:05)
[2020-06-29] MEDS: chlordiazePOXIDE HCL 25 MG CAPSULE PO SCH ×2 (17:34→22:05)
[2020-06-29] MEDS: THIAMINE HCL 100 MG TABLET (FP) PO SCH (22:05)
[2020-06-29] MEDS: MELATONIN 5 MG TABLETS PO SCH (22:05)
[2020-06-30] MEDS: hydrOXYzine PAMOATE 25 MG CAPSULE (FP) PO SCH ×5 (05:28→22:22)
[2020-06-30] MEDS: chlordiazePOXIDE HCL 25 MG CAPSULE PO SCH ×4 (05:30→22:18)
[2020-06-30] MEDS: PANTOPRAZOLE 40 MG TABLET PO SCH (10:16)
[2020-06-30] MEDS: AZITHROMYCIN 250 MG PO SCH (10:16)
[2020-06-30] MEDS: PRENATAL VITAMINS W/ FOLIC ACID TABLET (FP) PO SCH (10:16)
[2020-06-30 12:39] LABS: HEMATOCRIT 40.1 % (35.4-49); HEMOGLOBIN 13.5 GM/dL (11.7-16.9); MCH 30.9 pg (25.7-33.7); MCHC 33.6 g/dl (32.0-35.9); MEAN PLT VOLUME 9.3 fl (7.5-11.1); PLATELET COUNT 224 K/MM3 (134-434); RBC 4.36 M/mm3 (4.00-5.60); RDW 12.8 % (11.9-15.9); WHITE BLOOD COUNT 10.2 K/mm3 (4.0-10.0)
[2020-06-30 12:58] LABS: POTASSIUM 3.6 mmol/L (3.5-5.1)
[2020-06-30 13:15] LABS: ALBUMIN 3.2 g/dl (3.4-5.0); BLOOD UREA NITROGEN 11.2 mg/dL (7-18); CALCIUM 9.1 mg/dL (8.5-10.1)
[2020-06-30 13:18] LABS: BILIRUBIN,TOTAL 0.9 mg/dL (0.2-1); TOT PROT 6.8 g/dl (6.4-8.2)
[2020-06-30 13:19] LABS: CREATININE 1.1 mg/dL (0.55-1.3)
[2020-06-30] MEDS: traZODone HCL 50 MG TABLET (FP) PO SCH (22:18)
[2020-06-30] MEDS: THIAMINE HCL 100 MG TABLET (FP) PO SCH (22:18)
[2020-06-30] MEDS: MELATONIN 5 MG TABLETS PO SCH (22:18)
[2020-07-01] MEDS: hydrOXYzine PAMOATE 25 MG CAPSULE (FP) PO SCH ×5 (07:00→22:38)
[2020-07-01] MEDS: chlordiazePOXIDE HCL 25 MG CAPSULE PO SCH ×4 (07:00→22:38)
[2020-07-01] MEDS: PRENATAL VITAMINS W/ FOLIC ACID TABLET (FP) PO SCH (10:03)
[2020-07-01] MEDS: PANTOPRAZOLE 40 MG TABLET PO SCH (10:03)
[2020-07-01] MEDS: AZITHROMYCIN 250 MG PO SCH (10:04)
[2020-07-01] MEDS: chlorproMAZINE HCL 25 MG TABLET PO SCH (10:50)
[2020-07-01] MEDS: MELATONIN 5 MG TABLETS PO SCH (22:38)
[2020-07-01] MEDS: traZODone HCL 50 MG TABLET (FP) PO SCH (22:38)
[2020-07-01] MEDS: THIAMINE HCL 100 MG TABLET (FP) PO SCH (22:38)
[2020-07-02] MEDS ORDERED: chlordiazePOXIDE HCL 10 MG CAPSULE PO PRN
[2020-07-02] MEDS: chlordiazePOXIDE HCL 10 MG CAPSULE PO SCH ×4 (05:32→22:29)
[2020-07-02] MEDS: hydrOXYzine PAMOATE 25 MG CAPSULE (FP) PO SCH ×5 (06:04→22:27)
[2020-07-02] MEDS: PANTOPRAZOLE 40 MG TABLET PO SCH (10:23)
[2020-07-02] MEDS: AZITHROMYCIN 250 MG PO SCH (10:24)
[2020-07-02] MEDS: chlorproMAZINE HCL 25 MG TABLET PO SCH (10:24)
[2020-07-02] MEDS: PRENATAL VITAMINS W/ FOLIC ACID TABLET (FP) PO SCH (10:24)
[2020-07-02 14:07] LABS: SARS-CoV-2 NAA Not Detected (Not Detected)
[2020-07-02] MEDS: THIAMINE HCL 100 MG TABLET (FP) PO SCH (22:27)
[2020-07-02] MEDS: MELATONIN 5 MG TABLETS PO SCH (22:27)
[2020-07-02] MEDS: traZODone HCL 50 MG TABLET (FP) PO SCH (22:27)
[2020-07-03] MEDS: chlordiazePOXIDE HCL 10 MG CAPSULE PO SCH ×2 (06:19→18:23)
[2020-07-03] MEDS: hydrOXYzine PAMOATE 25 MG CAPSULE (FP) PO SCH ×5 (06:20→21:49)
[2020-07-03] MEDS: PRENATAL VITAMINS W/ FOLIC ACID TABLET (FP) PO SCH (09:56)
[2020-07-03] MEDS: chlorproMAZINE HCL 25 MG TABLET PO SCH (09:56)
[2020-07-03] MEDS: AZITHROMYCIN 250 MG PO SCH (09:56)
[2020-07-03] MEDS: PANTOPRAZOLE 40 MG TABLET PO SCH (09:56)
[2020-07-03] MEDS: MELATONIN 5 MG TABLETS PO SCH (21:49)
[2020-07-03] MEDS: THIAMINE HCL 100 MG TABLET (FP) PO SCH (21:49)
[2020-07-03] MEDS: traZODone HCL 50 MG TABLET (FP) PO SCH (21:50)
[2020-07-04] MEDS ORDERED: chlordiazePOXIDE HCL 10 MG CAPSULE PO ONE (05:00)
[2020-07-04] MEDS: hydrOXYzine PAMOATE 25 MG CAPSULE (FP) PO SCH ×2 (06:08→09:46)
[2020-07-04 07:20] VITALS: PULSE 94; TEMP 97.1
[2020-07-04] MEDS ORDERED: MASKS NR ONE (07:56)
[2020-07-04 09:17] VITALS: BP 138/91
[2020-07-04] MEDS: PANTOPRAZOLE 40 MG TABLET PO SCH (09:46)
[2020-07-04] MEDS: PRENATAL VITAMINS W/ FOLIC ACID TABLET (FP) PO SCH (09:46)
[2020-07-04] MEDS: chlorproMAZINE HCL 25 MG TABLET PO SCH (09:46)
== END 2020-07-04 11:00 | disposition other institution (70) | DRG 773 ==
LOC: YASAS 12:32 → Y3N 14:20
PROVIDERS: ADMIT Allergy & Immunology; ATTEND Allergy & Immunology
PROC: HZ2ZZZZ Detoxification Services for Substance Abuse Treatment (ICD-10-PCS; principal; 2020-06-29)
DX: F10.230 Alcohol dependence with withdrawal, uncomplicated (principal); F11.10 Opioid abuse, uncomplicated; F14.20 Cocaine dependence, uncomplicated; F12.20 Cannabis dependence, uncomplicated; F17.210 Nicotine dependence, cigarettes, uncomplicated; F25.9 Schizoaffective disorder, unspecified; F31.9 Bipolar disorder, unspecified; F19.24 Other psychoactive substance dependence with psychoactive substance-induced mood disorder; J45.909 Unspecified asthma, uncomplicated; K21.9 Gastro-esophageal reflux disease without esophagitis; B85.1 Pediculosis due to Pediculus humanus corporis; M54.5 Low back pain; G89.29 Other chronic pain; Z62.810 Personal history of physical and sexual abuse in childhood; Z87.01 Personal history of pneumonia (recurrent); Z98.890 Other specified postprocedural states; Z59.0 Homelessness; Z91.19 Patient's noncompliance with other medical treatment and regimen; Z88.8 Allergy status to other drugs, medicaments and biological substances
CPT/HCPCS: 36415; 71046-TC-FY; 80053; 85027; 86780; C9803; U0003; U0005

== ENCOUNTER 2020-07-04 11:01 | Inpatient (IN) | payer OTHER ==
[2020-07-04] MEDS ORDERED: MAG HYDROX/AL HYDROX/SIMETH 30 ML UNIT-DOSE CUP PO PRN (12:14)
[2020-07-04] MEDS ORDERED: P-EPHED 60MG/TRIPROLIDI 2.5MG TABLET PO PRN (12:14)
[2020-07-04] MEDS ORDERED: MENTHOL/PHENOL 1 EACH UD MM PRN (12:14)
[2020-07-04] MEDS ORDERED: guaiFENesin 200 MG/10 ML 10 ML UNIT-DOSE CUPS PO PRN (12:14)
[2020-07-04] MEDS ORDERED: IBUPROFEN 400 MG TABLET (FP) PO PRN (12:14)
[2020-07-04] MEDS ORDERED: NICOTINE POLACRILEX 2 MG GUM BUC PRN (12:14)
[2020-07-04] MEDS ORDERED: MAGNESIUM HYDROX 2400MG/30ML ORAL SUSPENSION 30 ML CUP PO PRN (12:14)
[2020-07-04] MEDS ORDERED: MAGNESIUM CITRATE 300 ML BOTTLE PO PRN (12:14)
[2020-07-04] MEDS ORDERED: ACETAMINOPHEN 325 MG TABLET (FP) PO PRN (12:14)
[2020-07-04] MEDS ORDERED: LOPERAMIDE HCL 2 MG CAPSULE PO PRN (12:14)
[2020-07-04] MEDS ORDERED: ALBUTEROL SO4 HFA INHALER IH PRN (12:20)
[2020-07-04] MEDS: AMOXICILLIN 500 MG CAPSULE (FP) PO SCH ×2 (14:40→21:41)
[2020-07-04] MEDS: traZODone HCL 50 MG TABLET (FP) PO SCH (21:40)
[2020-07-04] MEDS: MELATONIN 5 MG TABLETS PO SCH (21:41)
[2020-07-04] MEDS: THIAMINE HCL 100 MG TABLET (FP) PO SCH (21:41)
[2020-07-05] MEDS: AMOXICILLIN 500 MG CAPSULE (FP) PO SCH ×3 (06:08→21:07)
[2020-07-05] MEDS: PANTOPRAZOLE 40 MG TABLET PO SCH (10:11)
[2020-07-05] MEDS: PRENATAL VITAMINS W/ FOLIC ACID TABLET (FP) PO SCH (10:11)
[2020-07-05] MEDS: MELATONIN 5 MG TABLETS PO SCH (21:06)
[2020-07-05] MEDS: traZODone HCL 50 MG TABLET (FP) PO SCH (21:07)
[2020-07-05] MEDS: THIAMINE HCL 100 MG TABLET (FP) PO SCH (21:07)
[2020-07-05] MEDS: hydrOXYzine PAMOATE 25 MG CAPSULE (FP) PO PRN (23:03)
[2020-07-06] MEDS: AMOXICILLIN 500 MG CAPSULE (FP) PO SCH ×3 (06:10→21:20)
[2020-07-06 09:36] LABS: BASO % 0.8 % (0-2.0); EOS % 9.3 % (0-4.5); HEMATOCRIT 36.5 % (35.4-49); HEMOGLOBIN 12.3 GM/dL (11.7-16.9); LYMPH % 19.8 % (8-40); MCH 30.6 pg (25.7-33.7); MCHC 33.7 g/dl (32.0-35.9); MEAN CELL VOLUME 90.9 fl (80-96); MEAN PLT VOLUME 8.8 fl (7.5-11.1); MONO % 12.1 % (3.8-10.2); PLATELET COUNT 340 K/MM3 (134-434); RBC 4.01 M/mm3 (4.00-5.60); RDW 12.6 % (11.9-15.9); WHITE BLOOD COUNT 9.9 K/mm3 (4.0-10.0)
[2020-07-06] MEDS: PRENATAL VITAMINS W/ FOLIC ACID TABLET (FP) PO SCH (09:48)
[2020-07-06] MEDS: PANTOPRAZOLE 40 MG TABLET PO SCH (09:48)
[2020-07-06 12:18] LABS: ANISOCYTOSIS 0; HELMET CELLS 0; HOWELL-JOLLY BODIES 0; MACROCYTOSIS 0; OVALOCYTE 0; PLATELET ESTIMATE NORMAL; ROULEAU 0; SICKELED CELLS 0; TARGET CELLS 0; TEAR DROP CELLS 0; TOXIC GRANULATION 0
[2020-07-06] MEDS: hydrOXYzine PAMOATE 25 MG CAPSULE (FP) PO PRN ×2 (14:53→21:21)
[2020-07-06] MEDS: traZODone HCL 50 MG TABLET (FP) PO SCH (21:19)
[2020-07-06] MEDS: THIAMINE HCL 100 MG TABLET (FP) PO SCH (21:19)
[2020-07-06] MEDS: MELATONIN 5 MG TABLETS PO SCH (21:19)
[2020-07-07] MEDS ORDERED: MASKS NR ONE (06:08)
[2020-07-07] MEDS: AMOXICILLIN 500 MG CAPSULE (FP) PO SCH ×3 (06:22→21:06)
[2020-07-07] MEDS: PANTOPRAZOLE 40 MG TABLET PO SCH (10:08)
[2020-07-07] MEDS: PRENATAL VITAMINS W/ FOLIC ACID TABLET (FP) PO SCH (10:08)
[2020-07-07] MEDS: MELATONIN 5 MG TABLETS PO SCH (21:05)
[2020-07-07] MEDS: THIAMINE HCL 100 MG TABLET (FP) PO SCH (21:05)
[2020-07-07] MEDS: hydrOXYzine PAMOATE 25 MG CAPSULE (FP) PO PRN (21:06)
[2020-07-07] MEDS: traZODone HCL 50 MG TABLET (FP) PO SCH (21:06)
[2020-07-08] MEDS: AMOXICILLIN 500 MG CAPSULE (FP) PO SCH ×3 (06:22→21:18)
[2020-07-08 08:09] LABS: SARS-CoV-2 NAA Not Detected (Not Detected)
[2020-07-08] MEDS: PANTOPRAZOLE 40 MG TABLET PO SCH (10:16)
[2020-07-08] MEDS: hydrOXYzine PAMOATE 25 MG CAPSULE (FP) PO PRN ×3 (10:16→21:39)
[2020-07-08] MEDS: PRENATAL VITAMINS W/ FOLIC ACID TABLET (FP) PO SCH (10:16)
[2020-07-08] MEDS: traZODone HCL 50 MG TABLET (FP) PO SCH (21:18)
[2020-07-08] MEDS: THIAMINE HCL 100 MG TABLET (FP) PO SCH (21:19)
[2020-07-08] MEDS: MELATONIN 5 MG TABLETS PO SCH (21:19)
[2020-07-09] MEDS: hydrOXYzine PAMOATE 25 MG CAPSULE (FP) PO PRN ×2 (10:39→21:12)
[2020-07-09] MEDS: PANTOPRAZOLE 40 MG TABLET PO SCH (10:39)
[2020-07-09] MEDS: PRENATAL VITAMINS W/ FOLIC ACID TABLET (FP) PO SCH (10:39)
[2020-07-09] MEDS: MELATONIN 5 MG TABLETS PO SCH (21:08)
[2020-07-09] MEDS: THIAMINE HCL 100 MG TABLET (FP) PO SCH (21:08)
[2020-07-09] MEDS: traZODone HCL 50 MG TABLET (FP) PO SCH (21:08)
[2020-07-09 22:21] VITALS: BMI 23.3
[2020-07-10] MEDS: hydrOXYzine PAMOATE 25 MG CAPSULE (FP) PO PRN ×2 (09:35→21:32)
[2020-07-10] MEDS: PRENATAL VITAMINS W/ FOLIC ACID TABLET (FP) PO SCH (09:35)
[2020-07-10] MEDS: PANTOPRAZOLE 40 MG TABLET PO SCH (09:35)
[2020-07-10] MEDS: THIAMINE HCL 100 MG TABLET (FP) PO SCH (21:31)
[2020-07-10] MEDS: traZODone HCL 50 MG TABLET (FP) PO SCH (21:31)
[2020-07-10] MEDS: MELATONIN 5 MG TABLETS PO SCH (21:31)
[2020-07-11] MEDS: PANTOPRAZOLE 40 MG TABLET PO SCH (09:25)
[2020-07-11] MEDS: PRENATAL VITAMINS W/ FOLIC ACID TABLET (FP) PO SCH (09:25)
[2020-07-11] MEDS: hydrOXYzine PAMOATE 25 MG CAPSULE (FP) PO PRN ×2 (09:25→21:08)
[2020-07-11] MEDS: MELATONIN 5 MG TABLETS PO SCH (21:07)
[2020-07-11] MEDS: THIAMINE HCL 100 MG TABLET (FP) PO SCH (21:07)
[2020-07-11] MEDS: traZODone HCL 50 MG TABLET (FP) PO SCH (21:07)
[2020-07-12] MEDS: PANTOPRAZOLE 40 MG TABLET PO SCH (10:17)
[2020-07-12] MEDS: PRENATAL VITAMINS W/ FOLIC ACID TABLET (FP) PO SCH (10:17)
[2020-07-12] MEDS: hydrOXYzine PAMOATE 25 MG CAPSULE (FP) PO PRN ×2 (10:17→21:44)
[2020-07-12] MEDS: traZODone HCL 50 MG TABLET (FP) PO SCH (21:43)
[2020-07-12] MEDS: MELATONIN 5 MG TABLETS PO SCH (21:44)
[2020-07-12] MEDS: THIAMINE HCL 100 MG TABLET (FP) PO SCH (21:44)
[2020-07-13] MEDS: PANTOPRAZOLE 40 MG TABLET PO SCH (10:17)
[2020-07-13] MEDS: PRENATAL VITAMINS W/ FOLIC ACID TABLET (FP) PO SCH (10:17)
[2020-07-13] MEDS: hydrOXYzine PAMOATE 25 MG CAPSULE (FP) PO PRN ×3 (10:17→21:05)
[2020-07-13] MEDS: MELATONIN 5 MG TABLETS PO SCH (21:04)
[2020-07-13] MEDS: traZODone HCL 50 MG TABLET (FP) PO SCH (21:04)
[2020-07-13] MEDS: THIAMINE HCL 100 MG TABLET (FP) PO SCH (21:04)
[2020-07-14] MEDS: PRENATAL VITAMINS W/ FOLIC ACID TABLET (FP) PO SCH (10:39)
[2020-07-14] MEDS: PANTOPRAZOLE 40 MG TABLET PO SCH (10:39)
[2020-07-14] MEDS: hydrOXYzine PAMOATE 25 MG CAPSULE (FP) PO PRN ×2 (10:40→21:50)
[2020-07-14] MEDS: traZODone HCL 50 MG TABLET (FP) PO SCH (21:49)
[2020-07-14] MEDS: MELATONIN 5 MG TABLETS PO SCH (21:49)
[2020-07-14] MEDS: THIAMINE HCL 100 MG TABLET (FP) PO SCH (21:50)
[2020-07-15] MEDS: PRENATAL VITAMINS W/ FOLIC ACID TABLET (FP) PO SCH (10:08)
[2020-07-15] MEDS: hydrOXYzine PAMOATE 25 MG CAPSULE (FP) PO PRN ×2 (10:08→21:02)
[2020-07-15] MEDS: PANTOPRAZOLE 40 MG TABLET PO SCH (10:08)
[2020-07-15] MEDS: THIAMINE HCL 100 MG TABLET (FP) PO SCH (21:02)
[2020-07-15] MEDS: traZODone HCL 50 MG TABLET (FP) PO SCH (21:02)
[2020-07-15] MEDS: MELATONIN 5 MG TABLETS PO SCH (21:02)
[2020-07-16] MEDS: PRENATAL VITAMINS W/ FOLIC ACID TABLET (FP) PO SCH (10:44)
[2020-07-16] MEDS: PANTOPRAZOLE 40 MG TABLET PO SCH (10:44)
[2020-07-16] MEDS: hydrOXYzine PAMOATE 25 MG CAPSULE (FP) PO PRN ×2 (16:14→21:08)
[2020-07-16] MEDS: traZODone HCL 50 MG TABLET (FP) PO SCH (21:08)
[2020-07-16] MEDS: THIAMINE HCL 100 MG TABLET (FP) PO SCH (21:08)
[2020-07-16] MEDS: MELATONIN 5 MG TABLETS PO SCH (21:08)
[2020-07-17] MEDS: PANTOPRAZOLE 40 MG TABLET PO SCH (10:15)
[2020-07-17] MEDS: hydrOXYzine PAMOATE 25 MG CAPSULE (FP) PO PRN ×2 (10:15→21:02)
[2020-07-17] MEDS: PRENATAL VITAMINS W/ FOLIC ACID TABLET (FP) PO SCH (10:15)
[2020-07-17] MEDS: MELATONIN 5 MG TABLETS PO SCH (21:02)
[2020-07-17] MEDS: THIAMINE HCL 100 MG TABLET (FP) PO SCH (21:02)
[2020-07-17] MEDS: traZODone HCL 50 MG TABLET (FP) PO SCH (21:02)
[2020-07-18] MEDS: PANTOPRAZOLE 40 MG TABLET PO SCH (09:32)
[2020-07-18] MEDS: PRENATAL VITAMINS W/ FOLIC ACID TABLET (FP) PO SCH (09:32)
[2020-07-18] MEDS: hydrOXYzine PAMOATE 25 MG CAPSULE (FP) PO PRN ×3 (09:56→21:23)
[2020-07-18] MEDS: MELATONIN 5 MG TABLETS PO SCH (21:22)
[2020-07-18] MEDS: THIAMINE HCL 100 MG TABLET (FP) PO SCH (21:22)
[2020-07-18] MEDS: traZODone HCL 50 MG TABLET (FP) PO SCH (21:22)
[2020-07-19] MEDS: PRENATAL VITAMINS W/ FOLIC ACID TABLET (FP) PO SCH (09:46)
[2020-07-19] MEDS: hydrOXYzine PAMOATE 25 MG CAPSULE (FP) PO PRN ×3 (09:46→21:23)
[2020-07-19] MEDS: PANTOPRAZOLE 40 MG TABLET PO SCH (09:46)
[2020-07-19] MEDS: traZODone HCL 50 MG TABLET (FP) PO SCH (21:23)
[2020-07-19] MEDS: THIAMINE HCL 100 MG TABLET (FP) PO SCH (21:23)
[2020-07-19] MEDS: MELATONIN 5 MG TABLETS PO SCH (21:23)
[2020-07-20] MEDS: PRENATAL VITAMINS W/ FOLIC ACID TABLET (FP) PO SCH (09:40)
[2020-07-20] MEDS: PANTOPRAZOLE 40 MG TABLET PO SCH (09:40)
[2020-07-20] MEDS: hydrOXYzine PAMOATE 25 MG CAPSULE (FP) PO PRN ×2 (09:40→21:19)
[2020-07-20] MEDS: MELATONIN 5 MG TABLETS PO SCH (21:19)
[2020-07-20] MEDS: THIAMINE HCL 100 MG TABLET (FP) PO SCH (21:19)
[2020-07-20] MEDS: traZODone HCL 50 MG TABLET (FP) PO SCH (21:19)
[2020-07-21] MEDS: PANTOPRAZOLE 40 MG TABLET PO SCH (09:42)
[2020-07-21] MEDS: hydrOXYzine PAMOATE 25 MG CAPSULE (FP) PO PRN ×2 (09:42→21:09)
[2020-07-21] MEDS: PRENATAL VITAMINS W/ FOLIC ACID TABLET (FP) PO SCH (09:42)
[2020-07-21] MEDS ORDERED: PT OWN MED DRAWER 7, Y5N ONE (10:33)
[2020-07-21] MEDS: THIAMINE HCL 100 MG TABLET (FP) PO SCH (21:09)
[2020-07-21] MEDS: traZODone HCL 50 MG TABLET (FP) PO SCH (21:09)
[2020-07-21] MEDS: MELATONIN 5 MG TABLETS PO SCH (21:09)
[2020-07-22 07:03] VITALS: BP 126/77; PULSE 75; TEMP 97.9
[2020-07-22] MEDS: PRENATAL VITAMINS W/ FOLIC ACID TABLET (FP) PO SCH (09:43)
[2020-07-22] MEDS: hydrOXYzine PAMOATE 25 MG CAPSULE (FP) PO PRN (09:44)
[2020-07-22] MEDS: PANTOPRAZOLE 40 MG TABLET PO SCH (09:44)
== END 2020-07-22 15:30 | disposition home or self-care (01) | DRG 772 ==
LOC: YASAS 11:01 → Y3W 11:03
PROVIDERS: ADMIT Allergy & Immunology; ATTEND Allergy & Immunology
PROC: HZ42ZZZ Group Counseling for Substance Abuse Treatment, Cognitive-Behavioral (ICD-10-PCS; principal; 2020-07-04)
DX: F10.20 Alcohol dependence, uncomplicated (principal); F11.20 Opioid dependence, uncomplicated; F14.20 Cocaine dependence, uncomplicated; F12.20 Cannabis dependence, uncomplicated; F17.210 Nicotine dependence, cigarettes, uncomplicated; F20.9 Schizophrenia, unspecified; F31.9 Bipolar disorder, unspecified; F41.9 Anxiety disorder, unspecified; J18.9 Pneumonia, unspecified organism; K21.9 Gastro-esophageal reflux disease without esophagitis; Z88.8 Allergy status to other drugs, medicaments and biological substances; Z59.0 Homelessness
CPT/HCPCS: 36415; 82947; 85025; C9803; U0003; U0005

== ENCOUNTER 2021-10-19 15:55 | Inpatient (IN) | payer OTHER ==
[2021-10-19] MEDS ORDERED: MAGNESIUM HYDROX 2400MG/30ML ORAL SUSPENSION 30 ML CUP PO PRN (20:28)
[2021-10-19] MEDS ORDERED: IBUPROFEN 400 MG TABLET (FP) PO PRN (20:28)
[2021-10-19] MEDS ORDERED: IBUPROFEN 600 MG TABLET (FP) PO PRN (20:28)
[2021-10-19] MEDS ORDERED: LORazepam 1 MG TABLET PO PRN (20:28)
[2021-10-19] MEDS ORDERED: BENZOCAINE/MENTHOL (CHLORASEPTIC ) LOZENGE MM PRN (20:28)
[2021-10-19] MEDS ORDERED: NICOTINE 10 MG CARTRIDGE (INHALER) IH PRN (20:28)
[2021-10-19] MEDS ORDERED: MAG HYDROX/AL HYDROX/SIMETH 30 ML UNIT-DOSE CUP PO PRN (20:28)
[2021-10-19] MEDS ORDERED: DICYCLOMINE HCL 10 MG CAPSULE PO PRN (20:28)
[2021-10-19] MEDS ORDERED: guaiFENesin 200 MG/10 ML 10 ML UNIT-DOSE CUPS PO PRN (20:28)
[2021-10-19] MEDS ORDERED: BISMUTH SUBSALICYLATE 524 MG/30 ML PO PRN (20:28)
[2021-10-19] MEDS ORDERED: LOPERAMIDE HCL 2 MG CAPSULE PO PRN (20:28)
[2021-10-19] MEDS ORDERED: ONDANSETRON *ODT* 4 MG TABLET SL PRN (20:28)
[2021-10-19] MEDS ORDERED: P-EPHED 60MG/TRIPROLIDI 2.5MG TABLET PO PRN (20:28)
[2021-10-19] MEDS ORDERED: ACETAMINOPHEN 325 MG TABLET (FP) PO PRN ×2 (20:28)
[2021-10-19] MEDS ORDERED: METHOCARBAMOL 500 MG TABLET PO PRN (20:28)
[2021-10-19] MEDS ORDERED: MAGNESIUM CITRATE 300 ML BOTTLE PO PRN (20:28)
[2021-10-19] MEDS ORDERED: ALBUTEROL SO4 HFA INHALER IH PRN (20:28)
[2021-10-19] MEDS ORDERED: cloNIDine HCL 0.1 MG TABLET PO ONE (20:31)
[2021-10-19 20:55] VITALS: BMI 21.9
[2021-10-20] MEDS: THIAMINE HCL 100 MG TABLET (FP) PO SCH ×2 (01:06→22:11)
[2021-10-20] MEDS: LORazepam 2 MG TABLET PO SCH ×5 (01:06→22:11)
[2021-10-20] MEDS: MELATONIN 5 MG TABLETS PO SCH ×2 (01:06→22:12)
[2021-10-20] MEDS: PANTOPRAZOLE 20 MG TABLET PO SCH (10:30)
[2021-10-20] MEDS: PRENATAL VITAMINS W/ FOLIC ACID TABLET (FP) PO SCH (10:30)
[2021-10-20] MEDS: NICOTINE 14 MG/24 HOURS TOPICAL PATCH TD SCH (10:31)
[2021-10-20 10:35] LABS: HEMATOCRIT 43.2 % (35.4-49); HEMOGLOBIN 14.3 GM/dL (11.7-16.9); MCH 29.5 pg (25.7-33.7); MCHC 33.2 g/dl (32.0-35.9); MEAN CELL VOLUME 88.7 fl (80-96); MEAN PLT VOLUME 8.7 fl (7.5-11.1); PLATELET COUNT 355 10^3/uL (134-434); RBC 4.87 M/mm3 (4.00-5.60); RDW 13.9 % (11.9-15.9); WHITE BLOOD COUNT 8.4 K/mm3 (4.0-10.0)
[2021-10-20 10:43] LABS: ALBUMIN 3.1 g/dl (3.4-5.0); BLOOD UREA NITROGEN 10.7 mg/dL (7-18); CALCIUM 8.7 mg/dL (8.5-10.1)
[2021-10-20 10:47] LABS: CREATININE 0.9 mg/dL (0.55-1.3)
[2021-10-20 10:48] LABS: BILIRUBIN,TOTAL 0.8 mg/dL (0.2-1); TOT PROT 6.6 g/dl (6.4-8.2)
[2021-10-20] MEDS: traZODone HCL 50 MG TABLET (FP) PO SCH (22:11)
[2021-10-21 00:51] LABS: EPI CELLS 5 /uL (0-25.1); HYALINE CASTS 0 /uL (0-3.1); PH,URINE 8.5 (5.0-8.0); URINE APPEARANCE CLEAR; URINE BACTERIA 10 /uL (0-1359); URINE BILIRUBIN NEGATIVE (NEGATIVE); URINE COLOR YELLOW; URINE GLUCOSE (UA) NEGATIVE (NEGATIVE); URINE KETONE NEGATIVE (NEGATIVE); URINE LEUK ESTERASE TRACE (NEGATIVE); URINE NITRITE NEGATIVE (NEGATIVE); URINE PROTEIN NEGATIVE (NEGATIVE); URINE RBC 13 /uL (0-23.9); URINE WBC 16 /uL (0-25.8)
[2021-10-21] MEDS: LORazepam 1 MG TABLET PO SCH ×4 (06:23→22:25)
[2021-10-21] MEDS ORDERED: COLLOIDAL OATMEAL 1 BAR EACH TP PRN (09:02)
[2021-10-21] MEDS: HYDROCORTISONE 1% TOPICAL CREAM 30 GM TUBE TP SCH ×2 (10:09→22:27)
[2021-10-21] MEDS: NICOTINE 14 MG/24 HOURS TOPICAL PATCH TD SCH (10:09)
[2021-10-21] MEDS: PRENATAL VITAMINS W/ FOLIC ACID TABLET (FP) PO SCH (10:09)
[2021-10-21] MEDS: PANTOPRAZOLE 20 MG TABLET PO SCH (10:09)
[2021-10-21] MEDS ORDERED: cloNIDine HCL 0.1 MG TABLET PO ONE (12:47)
[2021-10-21] MEDS: traZODone HCL 50 MG TABLET (FP) PO SCH (22:25)
[2021-10-21] MEDS: MELATONIN 5 MG TABLETS PO SCH (22:25)
[2021-10-21] MEDS: THIAMINE HCL 100 MG TABLET (FP) PO SCH (22:25)
[2021-10-22] MEDS ORDERED: LORazepam 0.5 MG TABLET PO PRN
[2021-10-22] MEDS: LORazepam 0.5 MG TABLET PO SCH ×4 (06:14→22:31)
[2021-10-22] MEDS: PRENATAL VITAMINS W/ FOLIC ACID TABLET (FP) PO SCH (10:37)
[2021-10-22] MEDS: NICOTINE 14 MG/24 HOURS TOPICAL PATCH TD SCH (10:37)
[2021-10-22] MEDS: PANTOPRAZOLE 20 MG TABLET PO SCH (10:37)
[2021-10-22] MEDS: HYDROCORTISONE 1% TOPICAL CREAM 30 GM TUBE TP SCH ×2 (10:37→22:33)
[2021-10-22] MEDS ORDERED: METOPROLOL TARTRATE 25 MG TABLET (FP) PO ONE (14:34)
[2021-10-22] MEDS: traZODone HCL 50 MG TABLET (FP) PO SCH (22:31)
[2021-10-22] MEDS: MELATONIN 5 MG TABLETS PO SCH (22:31)
[2021-10-22] MEDS: THIAMINE HCL 100 MG TABLET (FP) PO SCH (22:31)
[2021-10-23] MEDS ORDERED: LORazepam 0.5 MG TABLET PO ONE (05:00)
[2021-10-23 09:52] VITALS: BP 162/103; PULSE 84; RESP 18; TEMP 98.4
== END 2021-10-23 08:57 | disposition home or self-care (01) | DRG 774 ==
LOC: YASAS 15:55 → Y6N 23:57
PROVIDERS: ADMIT Allergy & Immunology; ATTEND Surgery
PROC: HZ2ZZZZ Detoxification Services for Substance Abuse Treatment (ICD-10-PCS; principal; 2021-10-19)
DX: F10.230 Alcohol dependence with withdrawal, uncomplicated (principal); F14.20 Cocaine dependence, uncomplicated; F12.20 Cannabis dependence, uncomplicated; F17.210 Nicotine dependence, cigarettes, uncomplicated; F41.9 Anxiety disorder, unspecified; F34.1 Dysthymic disorder; F19.24 Other psychoactive substance dependence with psychoactive substance-induced mood disorder; F19.282 Other psychoactive substance dependence with psychoactive substance-induced sleep disorder; F25.9 Schizoaffective disorder, unspecified; I10 Essential (primary) hypertension; J45.909 Unspecified asthma, uncomplicated; K21.9 Gastro-esophageal reflux disease without esophagitis; G47.00 Insomnia, unspecified; R00.0 Tachycardia, unspecified; M54.59 Other low back pain; G89.29 Other chronic pain; L28.0 Lichen simplex chronicus; Z28.310 Unvaccinated for COVID-19; Z88.8 Allergy status to other drugs, medicaments and biological substances; Z91.14 Patient's other noncompliance with medication regimen; Z91.19 Patient's noncompliance with other medical treatment and regimen; Z87.438 Personal history of other diseases of male genital organs; Z91.51 Personal history of suicidal behavior; Z56.0 Unemployment, unspecified; Z59.00 Homelessness unspecified
CPT/HCPCS: 36415; 80053; 81003; 85027; 86780; 93005; 93010; C9803-CS; J0735; U0003; U0005

== ENCOUNTER 2022-09-08 17:48 | Inpatient (IN) | payer OTHER ==
[2022-09-08 18:10] VITALS: BMI 23.1
[2022-09-08] MEDS ORDERED: AMMONIUM LACTATE 12% LOTION 225 GM BOTTLE TP PRN (20:12)
[2022-09-08] MEDS ORDERED: BENZONATATE 200 MG CAPSULE PO PRN (20:12)
[2022-09-08] MEDS ORDERED: COLLOIDAL OATMEAL 1 BAR EACH TP PRN (20:12)
[2022-09-08] MEDS ORDERED: guaiFENesin 600 MG TABLET.ER (FP) PO PRN (20:12)
[2022-09-08] MEDS ORDERED: BENZOCAINE/MENTHOL (CHLORASEPTIC ) LOZENGE MM PRN (20:12)
[2022-09-08] MEDS ORDERED: POLYETHYLENE GLYCOL (HEALTHYLAX) 3350 17 GM PACKET PO PRN (20:12)
[2022-09-08] MEDS ORDERED: MAGNESIUM HYDROX 2400MG/30ML ORAL SUSPENSION 30 ML CUP PO PRN (20:12)
[2022-09-08] MEDS ORDERED: P-EPHED 60MG/TRIPROLIDI 2.5MG TABLET PO PRN (20:12)
[2022-09-08] MEDS ORDERED: MAG HYDROX/AL HYDROX/SIMETH 30 ML UNIT-DOSE CUP PO PRN (20:12)
[2022-09-08] MEDS ORDERED: ACETAMINOPHEN 325 MG TABLET (FP) PO PRN (20:12)
[2022-09-08] MEDS ORDERED: IBUPROFEN 400 MG TABLET (FP) PO PRN (20:12)
[2022-09-08] MEDS ORDERED: hydrOXYzine PAMOATE 25 MG CAPSULE (FP) PO PRN (20:12)
[2022-09-08] MEDS ORDERED: LOPERAMIDE HCL 2 MG CAPSULE PO PRN (20:12)
[2022-09-08] MEDS ORDERED: IBUPROFEN 600 MG TABLET (FP) PO PRN (20:12)
[2022-09-08] MEDS ORDERED: NICOTINE POLACRILEX 2 MG GUM BUC PRN (20:12)
[2022-09-08] MEDS: MELATONIN 5 MG TABLETS PO SCH (21:47)
[2022-09-08] MEDS: THIAMINE HCL 100 MG TABLET (FP) PO SCH (21:47)
[2022-09-08] MEDS ORDERED: traZODone HCL 50 MG TABLET (FP) PO ONE (22:00)
[2022-09-09 07:06] VITALS: RESP 18
[2022-09-09] MEDS: PANTOPRAZOLE 40 MG TABLET PO SCH (10:25)
[2022-09-09] MEDS: PRENATAL VITAMINS W/ FOLIC ACID TABLET (FP) PO SCH (10:25)
[2022-09-09 10:51] LABS: POTASSIUM 3.1 mmol/L (3.5-5.1)
[2022-09-09 10:57] LABS: ALBUMIN 3.4 g/dl (3.4-5.0); BLOOD UREA NITROGEN 19.1 mg/dL (7-18); CALCIUM 8.9 mg/dL (8.5-10.1)
[2022-09-09 11:00] LABS: CREATININE 1.3 mg/dL (0.55-1.3)
[2022-09-09 11:01] LABS: URINE APPEARANCE CLEAR; URINE BILIRUBIN NEGATIVE (NEGATIVE); URINE COLOR YELLOW; URINE GLUCOSE (UA) NEGATIVE (NEGATIVE); URINE KETONE NEGATIVE (NEGATIVE); URINE LEUK ESTERASE NEGATIVE (NEGATIVE); URINE NITRITE NEGATIVE (NEGATIVE); URINE PROTEIN NEGATIVE (NEGATIVE)
[2022-09-09 11:02] LABS: BILIRUBIN,TOTAL 0.6 mg/dL (0.2-1); TOT PROT 6.6 g/dl (6.4-8.2)
[2022-09-09 11:08] LABS: HEMATOCRIT 39.5 % (35.4-49); HEMOGLOBIN 13.1 GM/dL (11.7-16.9); MCH 28.3 pg (25.7-33.7); MCHC 33.3 g/dl (32.0-35.9); MEAN PLT VOLUME 8.6 fl (7.5-11.1); PLATELET COUNT 332 10^3/uL (134-434); RBC 4.64 M/mm3 (4.00-5.60); RDW 13.2 % (11.9-15.9); WHITE BLOOD COUNT 11.7 K/mm3 (4.0-10.0)
[2022-09-09 12:07] LABS: SYPHILIS W/ RPR CONF NON-REACTIVE (NONREACTIVE)
[2022-09-09] MEDS: MELATONIN 5 MG TABLETS PO SCH (21:20)
[2022-09-09] MEDS: THIAMINE HCL 100 MG TABLET (FP) PO SCH (21:20)
[2022-09-09] MEDS: QUEtiapine FUMARATE 100 MG TABLET (FP) PO SCH (21:21)
[2022-09-09] MEDS: traZODone HCL 50 MG TABLET (FP) PO SCH (21:21)
[2022-09-10] MEDS: PRENATAL VITAMINS W/ FOLIC ACID TABLET (FP) PO SCH (09:39)
[2022-09-10] MEDS: PANTOPRAZOLE 40 MG TABLET PO SCH (09:39)
[2022-09-10] MEDS: traZODone HCL 50 MG TABLET (FP) PO SCH (21:18)
[2022-09-10] MEDS: QUEtiapine FUMARATE 100 MG TABLET (FP) PO SCH (21:18)
[2022-09-10] MEDS: THIAMINE HCL 100 MG TABLET (FP) PO SCH (21:19)
[2022-09-10] MEDS: MELATONIN 5 MG TABLETS PO SCH (21:19)
[2022-09-11] MEDS: PANTOPRAZOLE 40 MG TABLET PO SCH (10:28)
[2022-09-11] MEDS: PRENATAL VITAMINS W/ FOLIC ACID TABLET (FP) PO SCH (10:28)
[2022-09-11] MEDS: traZODone HCL 50 MG TABLET (FP) PO SCH (21:14)
[2022-09-11] MEDS: QUEtiapine FUMARATE 100 MG TABLET (FP) PO SCH (21:14)
[2022-09-11] MEDS: MELATONIN 5 MG TABLETS PO SCH (21:15)
[2022-09-11] MEDS: THIAMINE HCL 100 MG TABLET (FP) PO SCH (21:15)
[2022-09-12] MEDS: PRENATAL VITAMINS W/ FOLIC ACID TABLET (FP) PO SCH (09:44)
[2022-09-12] MEDS: PANTOPRAZOLE 40 MG TABLET PO SCH (09:44)
[2022-09-12] MEDS ORDERED: POTASSIUM CHLORIDE ORAL LIQUID 20 MEQ/15 ML PO ONE (16:14)
[2022-09-12] MEDS: MELATONIN 5 MG TABLETS PO SCH (21:06)
[2022-09-12] MEDS: THIAMINE HCL 100 MG TABLET (FP) PO SCH (21:06)
[2022-09-12] MEDS: QUEtiapine FUMARATE 100 MG TABLET (FP) PO SCH (21:06)
[2022-09-12] MEDS: traZODone HCL 50 MG TABLET (FP) PO SCH (21:06)
[2022-09-13] MEDS: PANTOPRAZOLE 40 MG TABLET PO SCH (10:13)
[2022-09-13] MEDS: PRENATAL VITAMINS W/ FOLIC ACID TABLET (FP) PO SCH (10:13)
[2022-09-13 11:35] LABS: CALCIUM 8.6 mg/dL (8.5-10.1)
[2022-09-13 11:36] LABS: BLOOD UREA NITROGEN 11.8 mg/dL (7-18)
[2022-09-13 11:41] LABS: BILIRUBIN,TOTAL 0.2 mg/dL (0.2-1); TOT PROT 5.1 g/dl (6.4-8.2)
[2022-09-13 11:52] LABS: ALBUMIN 2.5 g/dl (3.4-5.0)
[2022-09-13] MEDS: THIAMINE HCL 100 MG TABLET (FP) PO SCH (21:23)
[2022-09-13] MEDS: MELATONIN 5 MG TABLETS PO SCH (21:24)
[2022-09-13] MEDS: QUEtiapine FUMARATE 100 MG TABLET (FP) PO SCH (21:24)
[2022-09-13] MEDS: traZODone HCL 50 MG TABLET (FP) PO SCH (21:24)
[2022-09-14] MEDS: PANTOPRAZOLE 40 MG TABLET PO SCH (09:51)
[2022-09-14] MEDS: PRENATAL VITAMINS W/ FOLIC ACID TABLET (FP) PO SCH (09:51)
[2022-09-14] MEDS: QUEtiapine FUMARATE 100 MG TABLET (FP) PO SCH (21:11)
[2022-09-14] MEDS: THIAMINE HCL 100 MG TABLET (FP) PO SCH (21:11)
[2022-09-14] MEDS: traZODone HCL 50 MG TABLET (FP) PO SCH (21:11)
[2022-09-14] MEDS: MELATONIN 5 MG TABLETS PO SCH (21:11)
[2022-09-15] MEDS: PRENATAL VITAMINS W/ FOLIC ACID TABLET (FP) PO SCH (10:27)
[2022-09-15] MEDS: PANTOPRAZOLE 40 MG TABLET PO SCH (10:27)
[2022-09-15] MEDS: traZODone HCL 50 MG TABLET (FP) PO SCH (21:02)
[2022-09-15] MEDS: QUEtiapine FUMARATE 100 MG TABLET (FP) PO SCH (21:02)
[2022-09-15] MEDS: MELATONIN 5 MG TABLETS PO SCH (21:03)
[2022-09-15] MEDS: THIAMINE HCL 100 MG TABLET (FP) PO SCH (21:03)
[2022-09-16] MEDS: PANTOPRAZOLE 40 MG TABLET PO SCH (09:49)
[2022-09-16] MEDS: PRENATAL VITAMINS W/ FOLIC ACID TABLET (FP) PO SCH (09:49)
[2022-09-16] MEDS: QUEtiapine FUMARATE 100 MG TABLET (FP) PO SCH (21:23)
[2022-09-16] MEDS: traZODone HCL 50 MG TABLET (FP) PO SCH (21:23)
[2022-09-16] MEDS: THIAMINE HCL 100 MG TABLET (FP) PO SCH (21:23)
[2022-09-16] MEDS: MELATONIN 5 MG TABLETS PO SCH (21:24)
[2022-09-17] MEDS: PRENATAL VITAMINS W/ FOLIC ACID TABLET (FP) PO SCH (11:47)
[2022-09-17] MEDS: PANTOPRAZOLE 40 MG TABLET PO SCH (11:47)
[2022-09-17] MEDS ORDERED: QUEtiapine FUMARATE 50 MG TABLET ONE (19:11)
[2022-09-17] MEDS: THIAMINE HCL 100 MG TABLET (FP) PO SCH (21:10)
[2022-09-17] MEDS: MELATONIN 5 MG TABLETS PO SCH (21:11)
[2022-09-17] MEDS: QUEtiapine FUMARATE 100 MG TABLET (FP) PO SCH (21:11)
[2022-09-17] MEDS: traZODone HCL 50 MG TABLET (FP) PO SCH (21:11)
[2022-09-18] MEDS: PRENATAL VITAMINS W/ FOLIC ACID TABLET (FP) PO SCH (09:28)
[2022-09-18] MEDS: PANTOPRAZOLE 40 MG TABLET PO SCH (09:28)
[2022-09-18] MEDS: QUEtiapine FUMARATE 100 MG TABLET (FP) PO SCH (21:46)
[2022-09-18] MEDS: THIAMINE HCL 100 MG TABLET (FP) PO SCH (21:47)
[2022-09-18] MEDS: traZODone HCL 50 MG TABLET (FP) PO SCH (21:47)
[2022-09-18] MEDS: MELATONIN 5 MG TABLETS PO SCH (21:47)
[2022-09-19] MEDS: PRENATAL VITAMINS W/ FOLIC ACID TABLET (FP) PO SCH (10:24)
[2022-09-19] MEDS: PANTOPRAZOLE 40 MG TABLET PO SCH (10:24)
[2022-09-19] MEDS: traZODone HCL 50 MG TABLET (FP) PO SCH (21:35)
[2022-09-19] MEDS: MELATONIN 5 MG TABLETS PO SCH (21:35)
[2022-09-19] MEDS: QUEtiapine FUMARATE 100 MG TABLET (FP) PO SCH (21:35)
[2022-09-19] MEDS: THIAMINE HCL 100 MG TABLET (FP) PO SCH (21:35)
[2022-09-20] MEDS: PANTOPRAZOLE 40 MG TABLET PO SCH (09:51)
[2022-09-20] MEDS: PRENATAL VITAMINS W/ FOLIC ACID TABLET (FP) PO SCH (09:51)
[2022-09-20] MEDS: MELATONIN 5 MG TABLETS PO SCH (21:09)
[2022-09-20] MEDS: QUEtiapine FUMARATE 100 MG TABLET (FP) PO SCH (21:09)
[2022-09-20] MEDS: THIAMINE HCL 100 MG TABLET (FP) PO SCH (21:09)
[2022-09-20] MEDS: traZODone HCL 50 MG TABLET (FP) PO SCH (21:09)
[2022-09-21] MEDS: PRENATAL VITAMINS W/ FOLIC ACID TABLET (FP) PO SCH (09:32)
[2022-09-21] MEDS: PANTOPRAZOLE 40 MG TABLET PO SCH (09:32)
[2022-09-21] MEDS: THIAMINE HCL 100 MG TABLET (FP) PO SCH (21:43)
[2022-09-21] MEDS: MELATONIN 5 MG TABLETS PO SCH (21:43)
[2022-09-21] MEDS: traZODone HCL 50 MG TABLET (FP) PO SCH (21:43)
[2022-09-21] MEDS: QUEtiapine FUMARATE 100 MG TABLET (FP) PO SCH (21:44)
[2022-09-22 07:23] VITALS: BP 122/82; PULSE 101; TEMP 98.2
[2022-09-22] MEDS: PRENATAL VITAMINS W/ FOLIC ACID TABLET (FP) PO SCH (09:18)
[2022-09-22] MEDS: PANTOPRAZOLE 40 MG TABLET PO SCH (09:18)
== END 2022-09-22 09:38 | disposition home or self-care (01) | DRG 772 ==
LOC: YASAS 17:48 → Y3W 20:33
PROVIDERS: ADMIT Allergy & Immunology; ATTEND Psychiatry & Neurology Pain Medicine
PROC: HZ42ZZZ Group Counseling for Substance Abuse Treatment, Cognitive-Behavioral (ICD-10-PCS; principal; 2022-09-08)
DX: F14.20 Cocaine dependence, uncomplicated (principal); F10.20 Alcohol dependence, uncomplicated; F12.20 Cannabis dependence, uncomplicated; F17.210 Nicotine dependence, cigarettes, uncomplicated; F19.282 Other psychoactive substance dependence with psychoactive substance-induced sleep disorder; F31.9 Bipolar disorder, unspecified; F25.9 Schizoaffective disorder, unspecified; F34.1 Dysthymic disorder; G47.00 Insomnia, unspecified; E87.6 Hypokalemia; I10 Essential (primary) hypertension; K21.9 Gastro-esophageal reflux disease without esophagitis; M54.50 Low back pain, unspecified; Z28.310 Unvaccinated for COVID-19; Z88.8 Allergy status to other drugs, medicaments and biological substances
CPT/HCPCS: 36415; 80053; 81003; 82962; 85027; 86780; 86803; 87635; 87811; 93005; 93010

== ENCOUNTER 2023-02-14 14:36 | Inpatient (IN) | payer OTHER ==
[2023-02-14 15:18] VITALS: BMI 18.8
[2023-02-14] MEDS ORDERED: NALOXONE HCL 0.4 MG/ML VIAL IM PRN (19:30)
[2023-02-14] MEDS ORDERED: POLYETHYLENE GLYCOL (HEALTHYLAX) 3350 17 GM PACKET PO PRN (19:30)
[2023-02-14] MEDS ORDERED: MAGNESIUM HYDROX 2400MG/30ML ORAL SUSPENSION 30 ML CUP PO PRN (19:30)
[2023-02-14] MEDS ORDERED: BENZOCAINE/MENTHOL (CHLORASEPTIC ) LOZENGE MM PRN (19:30)
[2023-02-14] MEDS ORDERED: hydrOXYzine PAMOATE 25 MG CAPSULE (FP) PO PRN (19:30)
[2023-02-14] MEDS ORDERED: MAG HYDROX/AL HYDROX/SIMETH 30 ML UNIT-DOSE CUP PO PRN (19:30)
[2023-02-14] MEDS ORDERED: IBUPROFEN 600 MG TABLET (FP) PO PRN (19:30)
[2023-02-14] MEDS ORDERED: guaiFENesin 600 MG TABLET.ER (FP) PO PRN (19:30)
[2023-02-14] MEDS ORDERED: METHOCARBAMOL 500 MG TABLET PO PRN (19:30)
[2023-02-14] MEDS ORDERED: ACETAMINOPHEN 325 MG TABLET (FP) PO PRN (19:30)
[2023-02-14] MEDS ORDERED: DICYCLOMINE HCL 10 MG CAPSULE PO PRN (19:30)
[2023-02-14] MEDS ORDERED: LOPERAMIDE HCL 2 MG CAPSULE PO PRN (19:30)
[2023-02-14] MEDS ORDERED: IBUPROFEN 400 MG TABLET (FP) PO PRN (19:30)
[2023-02-14] MEDS ORDERED: BENZONATATE 200 MG CAPSULE PO PRN (19:30)
[2023-02-14] MEDS ORDERED: ONDANSETRON *ODT* 4 MG TABLET SL PRN (19:30)
[2023-02-14] MEDS ORDERED: BISMUTH SUBSALICYLATE 524 MG/30 ML PO PRN (19:30)
[2023-02-14] MEDS ORDERED: NALOXONE HCL (KLOXXADO) 8 MG SPRAY NS PRN (19:30)
[2023-02-14] MEDS ORDERED: THIAMINE HCL 100 MG TABLET (FP) PO SCH (22:00)
[2023-02-14] MEDS ORDERED: MELATONIN 5 MG TABLETS PO SCH (22:00)
[2023-02-14] MEDS ORDERED: ALBUTEROL SO4 HFA INHALER IH PRN (23:03)
[2023-02-15 03:27] VITALS: BP 142/88; PULSE 77; RESP 18; TEMP 98.4
[2023-02-15] MEDS ORDERED: PRENATAL VITAMINS W/ FOLIC ACID TABLET (FP) PO SCH (10:00)
== END 2023-02-15 01:40 | disposition short-term general hospital (02) | DRG 774 ==
LOC: YASAS 14:36 → Y3N 19:54
PROVIDERS: ADMIT Allergy & Immunology; ATTEND Surgery
PROC: HZ2ZZZZ Detoxification Services for Substance Abuse Treatment (ICD-10-PCS; principal; 2023-02-14)
DX: F10.20 Alcohol dependence, uncomplicated (principal); F14.20 Cocaine dependence, uncomplicated; F12.20 Cannabis dependence, uncomplicated; F17.210 Nicotine dependence, cigarettes, uncomplicated; F25.9 Schizoaffective disorder, unspecified; F31.9 Bipolar disorder, unspecified; F19.282 Other psychoactive substance dependence with psychoactive substance-induced sleep disorder; F34.1 Dysthymic disorder; I10 Essential (primary) hypertension; K21.9 Gastro-esophageal reflux disease without esophagitis; R04.2 Hemoptysis; Z88.8 Allergy status to other drugs, medicaments and biological substances; Z28.310 Unvaccinated for COVID-19; Z28.9 Immunization not carried out for unspecified reason; Z91.199 Patient's noncompliance with other medical treatment and regimen due to unspecified reason
CPT/HCPCS: 87635

== ENCOUNTER 2023-02-15 01:52 | Emergency (ER) | payer OTHER ==
[2023-02-15 02:11] VITALS: BP 143/86; PULSE 88; RESP 18; BMI 18.8
== END 2023-02-15 03:00 | disposition left against medical advice (07) ==
LOC: JER 01:52
DX: F19.10 Other psychoactive substance abuse, uncomplicated (principal); Z91.199 Patient's noncompliance with other medical treatment and regimen due to unspecified reason
CPT/HCPCS: 99281-25

== ENCOUNTER 2023-03-17 16:55 | Inpatient (IN) | payer OTHER ==
[2023-03-17 17:38] VITALS: TEMP 98.2; BMI 20.2
[2023-03-17] MEDS ORDERED: ALBUTEROL SO4 HFA INHALER IH PRN (17:51)
[2023-03-17] MEDS ORDERED: MAG HYDROX/AL HYDROX/SIMETH 30 ML UNIT-DOSE CUP PO PRN (19:11)
[2023-03-17] MEDS ORDERED: guaiFENesin 600 MG TABLET.ER (FP) PO PRN (19:11)
[2023-03-17] MEDS ORDERED: P-EPHED 60MG/TRIPROLIDI 2.5MG TABLET PO PRN (19:11)
[2023-03-17] MEDS ORDERED: BENZOCAINE/MENTHOL (CHLORASEPTIC ) LOZENGE MM PRN (19:11)
[2023-03-17] MEDS ORDERED: POLYETHYLENE GLYCOL (HEALTHYLAX) 3350 17 GM PACKET PO PRN (19:11)
[2023-03-17] MEDS ORDERED: NICOTINE POLACRILEX 2 MG GUM BUC PRN (19:11)
[2023-03-17] MEDS ORDERED: IBUPROFEN 600 MG TABLET (FP) PO PRN (19:11)
[2023-03-17] MEDS ORDERED: BENZONATATE 200 MG CAPSULE PO PRN (19:11)
[2023-03-17] MEDS ORDERED: IBUPROFEN 400 MG TABLET (FP) PO PRN (19:11)
[2023-03-17] MEDS ORDERED: COLLOIDAL OATMEAL 1 BAR EACH TP PRN (19:11)
[2023-03-17] MEDS ORDERED: MAGNESIUM HYDROX 2400MG/30ML ORAL SUSPENSION 30 ML CUP PO PRN (19:11)
[2023-03-17] MEDS ORDERED: LOPERAMIDE HCL 2 MG CAPSULE PO PRN (19:11)
[2023-03-17] MEDS ORDERED: ONDANSETRON *ODT* 4 MG TABLET SL PRN (19:13)
[2023-03-17] MEDS ORDERED: ALBUTEROL SO4 HFA INHALER IH ONE (20:37)
[2023-03-17] MEDS ORDERED: MELATONIN 5 MG TABLETS ONE (21:24)
[2023-03-17] MEDS: hydrOXYzine PAMOATE 25 MG CAPSULE (FP) PO PRN (21:25)
[2023-03-17] MEDS ORDERED: MELATONIN 5 MG TABLETS PO SCH (22:00)
[2023-03-17] MEDS ORDERED: THIAMINE HCL 100 MG TABLET (FP) PO SCH (22:00)
[2023-03-17] MEDS ORDERED: LIDOCAINE PATCH REMOVAL MC SCH (22:00)
[2023-03-18] MEDS: ACETAMINOPHEN 325 MG TABLET (FP) PO PRN ×2 (01:01→06:52)
[2023-03-18] MEDS: hydrOXYzine PAMOATE 25 MG CAPSULE (FP) PO PRN (03:29)
[2023-03-18 08:17] VITALS: BP 149/82; PULSE 75; RESP 17
[2023-03-18] MEDS ORDERED: PRENATAL VITAMINS W/ FOLIC ACID TABLET (FP) PO SCH (10:00)
[2023-03-18] MEDS ORDERED: LIDOCAINE 5% TOPICAL PATCH TP SCH (10:00)
[2023-03-18 10:19] LABS: HEMATOCRIT 34.2 % (35.4-49); HEMOGLOBIN 11.1 GM/dL (11.7-16.9); MCH 27.1 pg (25.7-33.7); MCHC 32.5 g/dl (32.0-35.9); MEAN CELL VOLUME 83.5 fl (80-96); MEAN PLT VOLUME 7.9 fl (7.5-11.1); PLATELET COUNT 521 10^3/uL (134-434); RBC 4.09 M/mm3 (4.00-5.60); RDW 15.4 % (11.9-15.9); WHITE BLOOD COUNT 8.7 K/mm3 (4.0-10.0)
[2023-03-18 10:36] LABS: CHLORIDE 106 mmol/L (98-107); POTASSIUM 4.5 mmol/L (3.5-5.1); SODIUM 139 mmol/L (136-145)
[2023-03-18 10:37] LABS: CALCIUM 8.7 mg/dL (8.5-10.1)
[2023-03-18 10:38] LABS: ALBUMIN 2.7 g/dl (3.4-5.0); ANION GAP 2 mmol/L (4-13); BLOOD UREA NITROGEN 13.3 mg/dL (7-18); CO2 31 mmol/L (21-32); GLUCOSE,RANDOM 92 mg/dL (74-106)
[2023-03-18 10:41] LABS: SGOT/AST 10 U/L (15-37); SGPT/ALT 17 U/L (13-61)
[2023-03-18 10:42] LABS: BILIRUBIN,TOTAL 0.2 mg/dL (0.2-1)
[2023-03-18 10:43] LABS: TOT PROT 6.2 g/dl (6.4-8.2)
[2023-03-18 10:44] LABS: ALK PHOS 92 U/L (45-117)
[2023-03-18] MEDS ORDERED: traZODone HCL 50 MG TABLET (FP) PO SCH (22:00)
[2023-03-18] MEDS ORDERED: QUEtiapine FUMARATE 100 MG TABLET (FP) PO SCH (22:00)
== END 2023-03-18 09:32 | disposition home or self-care (01) | DRG 772 ==
LOC: YASAS 16:55 → Y3E 21:15
PROVIDERS: ADMIT Allergy & Immunology; ATTEND Psychiatry & Neurology Pain Medicine
PROC: HZ42ZZZ Group Counseling for Substance Abuse Treatment, Cognitive-Behavioral (ICD-10-PCS; principal; 2023-03-17)
DX: F10.20 Alcohol dependence, uncomplicated (principal); F14.20 Cocaine dependence, uncomplicated; F12.20 Cannabis dependence, uncomplicated; F17.210 Nicotine dependence, cigarettes, uncomplicated; F31.9 Bipolar disorder, unspecified; F25.9 Schizoaffective disorder, unspecified; F19.282 Other psychoactive substance dependence with psychoactive substance-induced sleep disorder; I10 Essential (primary) hypertension; J44.9 Chronic obstructive pulmonary disease, unspecified; K21.9 Gastro-esophageal reflux disease without esophagitis; M54.50 Low back pain, unspecified; G89.29 Other chronic pain; Z62.810 Personal history of physical and sexual abuse in childhood; Z56.0 Unemployment, unspecified; Z59.01 Sheltered homelessness; Z88.8 Allergy status to other drugs, medicaments and biological substances; Z28.310 Unvaccinated for COVID-19; Z28.9 Immunization not carried out for unspecified reason
CPT/HCPCS: 0241U-QW; 36415; 80053; 80307; 85027; 86780; Q0162

== ENCOUNTER 2023-06-09 13:19 | Inpatient (IN) | payer OTHER ==
[2023-06-09 14:28] VITALS: BMI 19.7
[2023-06-09] MEDS ORDERED: BENZOCAINE/MENTHOL (CHLORASEPTIC ) LOZENGE MM PRN (18:21)
[2023-06-09] MEDS ORDERED: IBUPROFEN 600 MG TABLET (FP) PO PRN (18:21)
[2023-06-09] MEDS ORDERED: NALOXONE HCL (KLOXXADO) 8 MG SPRAY NS PRN (18:21)
[2023-06-09] MEDS ORDERED: NALOXONE HCL 0.4 MG/ML VIAL IM PRN (18:21)
[2023-06-09] MEDS ORDERED: P-EPHED 60MG/TRIPROLIDI 2.5MG TABLET PO PRN (18:21)
[2023-06-09] MEDS ORDERED: LOPERAMIDE HCL 2 MG CAPSULE PO PRN (18:21)
[2023-06-09] MEDS ORDERED: MAGNESIUM HYDROX 2400MG/30ML ORAL SUSPENSION 30 ML CUP PO PRN (18:21)
[2023-06-09] MEDS ORDERED: BENZONATATE 200 MG CAPSULE PO PRN (18:21)
[2023-06-09] MEDS ORDERED: DOCUSATE SODIUM 100 MG CAPSULE (FP) PO PRN (18:21)
[2023-06-09] MEDS ORDERED: NICOTINE POLACRILEX 2 MG GUM BUC PRN (18:21)
[2023-06-09] MEDS ORDERED: IBUPROFEN 400 MG TABLET (FP) PO PRN (18:21)
[2023-06-09] MEDS ORDERED: ACETAMINOPHEN 325 MG TABLET (FP) PO PRN (18:21)
[2023-06-09] MEDS ORDERED: NICOTINE POLACRILEX 2 MG LOZENGE BC PRN (18:21)
[2023-06-09] MEDS ORDERED: POLYETHYLENE GLYCOL (HEALTHYLAX) 3350 17 GM PACKET PO PRN (18:21)
[2023-06-09] MEDS: hydrOXYzine PAMOATE 25 MG CAPSULE (FP) PO PRN (19:30)
[2023-06-09] MEDS: guaiFENesin 600 MG TABLET.ER (FP) PO PRN (20:41)
[2023-06-09] MEDS: THIAMINE HCL 100 MG TABLET (FP) PO SCH (23:08)
[2023-06-09] MEDS: MELATONIN 5 MG TABLETS PO SCH (23:08)
[2023-06-09] MEDS: METHOCARBAMOL 500 MG TABLET PO ONE (23:28)
[2023-06-09] MEDS: MAG HYDROX/AL HYDROX/SIMETH 30 ML UNIT-DOSE CUP PO PRN (23:28)
[2023-06-10] MEDS: PRENATAL VITAMINS W/ FOLIC ACID TABLET (FP) PO SCH (09:38)
[2023-06-10] MEDS: QUEtiapine FUMARATE 50 MG TABLET PO ONE (09:38)
[2023-06-10] MEDS: QUEtiapine FUMARATE 50 MG TABLET PO STA (10:57)
[2023-06-10 11:04] LABS: HEMOGLOBIN 11.7 GM/dL (11.7-16.9); MCHC 33.6 g/dl (32.0-35.9); POTASSIUM 4.1 mmol/L (3.5-5.1)
[2023-06-10 11:07] LABS: HEMATOCRIT 34.7 % (35.4-49); MCH 28.2 pg (25.7-33.7); MEAN PLT VOLUME 8.3 fl (7.5-11.1); PLATELET COUNT 408 10^3/uL (134-434); RBC 4.13 M/mm3 (4.00-5.60); RDW 15.4 % (11.9-15.9); WHITE BLOOD COUNT 7.6 K/mm3 (4.0-10.0)
[2023-06-10 11:09] LABS: ALBUMIN 2.9 g/dl (3.4-5.0)
[2023-06-10 11:11] LABS: CALCIUM 8.5 mg/dL (8.5-10.1)
[2023-06-10 11:12] LABS: CREATININE 0.9 mg/dL (0.55-1.3)
[2023-06-10 11:13] LABS: TOT PROT 6.4 g/dl (6.4-8.2)
[2023-06-10 11:14] LABS: BILIRUBIN,TOTAL 0.2 mg/dL (0.2-1)
[2023-06-10] MEDS: ALBUTEROL SO4 HFA INHALER IH PRN (13:14)
[2023-06-10] MEDS: chlorproMAZINE HCL 25 MG TABLET PO SCH (22:06)
[2023-06-10] MEDS: TRIMETHOBENZAMIDE HCL 200MG/2ML INJ IM ONE (22:47)
[2023-06-10] MEDS ORDERED: METHOCARBAMOL 750 MG TABLET PO PRN (23:06)
[2023-06-10] MEDS: LIDOCAINE 5% TOPICAL PATCH TP ONE (23:13)
[2023-06-10] MEDS: MELATONIN 5 MG TABLETS PO ONE (23:15)
[2023-06-10] MEDS: cloNIDine HCL 0.1 MG TABLET PO ONE (23:15)
[2023-06-10] MEDS: LIDOCAINE PATCH REMOVAL MC SCH (23:16)
[2023-06-11 06:44] VITALS: BP 133/79; PULSE 90; RESP 17; TEMP 97.8
== END 2023-06-11 08:54 | disposition left against medical advice (07) | DRG 770 ==
LOC: YASAS 13:19 → Y3NR 18:38 → Y3W 06-10 13:36
PROVIDERS: ADMIT Allergy & Immunology; ATTEND Psychiatry & Neurology Pain Medicine
PROC: HZ42ZZZ Group Counseling for Substance Abuse Treatment, Cognitive-Behavioral (ICD-10-PCS; principal; 2023-06-09)
DX: F10.20 Alcohol dependence, uncomplicated (principal); F14.20 Cocaine dependence, uncomplicated; F12.20 Cannabis dependence, uncomplicated; F17.210 Nicotine dependence, cigarettes, uncomplicated; F19.282 Other psychoactive substance dependence with psychoactive substance-induced sleep disorder; F19.280 Other psychoactive substance dependence with psychoactive substance-induced anxiety disorder; F19.24 Other psychoactive substance dependence with psychoactive substance-induced mood disorder; F31.9 Bipolar disorder, unspecified; I10 Essential (primary) hypertension; J44.9 Chronic obstructive pulmonary disease, unspecified; K21.9 Gastro-esophageal reflux disease without esophagitis; M54.50 Low back pain, unspecified; G89.29 Other chronic pain; F91.8 Other conduct disorders; Z91.199 Patient's noncompliance with other medical treatment and regimen due to unspecified reason; Z62.810 Personal history of physical and sexual abuse in childhood; Z63.8 Other specified problems related to primary support group; Z28.310 Unvaccinated for COVID-19; Z28.9 Immunization not carried out for unspecified reason; Z59.01 Sheltered homelessness
CPT/HCPCS: 0241U-QW; 36415; 80053; 80305; 85027; 86780

== ENCOUNTER 2023-06-16 10:22 | Inpatient (IN) | payer OTHER ==
[2023-06-16 10:50] VITALS: RESP 18; BMI 17.8
[2023-06-16] MEDS ORDERED: BENZOCAINE/MENTHOL (CHLORASEPTIC ) LOZENGE MM PRN (13:09)
[2023-06-16] MEDS ORDERED: IBUPROFEN 400 MG TABLET (FP) PO PRN (13:09)
[2023-06-16] MEDS ORDERED: MAGNESIUM HYDROX 2400MG/30ML ORAL SUSPENSION 30 ML CUP PO PRN (13:09)
[2023-06-16] MEDS ORDERED: NALOXONE HCL (KLOXXADO) 8 MG SPRAY NS PRN (13:09)
[2023-06-16] MEDS ORDERED: BENZONATATE 200 MG CAPSULE PO PRN (13:09)
[2023-06-16] MEDS ORDERED: ONDANSETRON *ODT* 4 MG TABLET SL PRN (13:09)
[2023-06-16] MEDS ORDERED: POLYETHYLENE GLYCOL (HEALTHYLAX) 3350 17 GM PACKET PO PRN (13:09)
[2023-06-16] MEDS ORDERED: IBUPROFEN 600 MG TABLET (FP) PO PRN (13:09)
[2023-06-16] MEDS ORDERED: guaiFENesin 600 MG TABLET.ER (FP) PO PRN (13:09)
[2023-06-16] MEDS ORDERED: ACETAMINOPHEN 325 MG TABLET (FP) PO PRN (13:09)
[2023-06-16] MEDS ORDERED: BISMUTH SUBSALICYLATE 524 MG/30 ML PO PRN (13:09)
[2023-06-16] MEDS ORDERED: DICYCLOMINE HCL 10 MG CAPSULE PO PRN (13:09)
[2023-06-16] MEDS ORDERED: MAG HYDROX/AL HYDROX/SIMETH 30 ML UNIT-DOSE CUP PO PRN (13:09)
[2023-06-16] MEDS ORDERED: NALOXONE HCL 0.4 MG/ML VIAL IM PRN (13:09)
[2023-06-16] MEDS ORDERED: LOPERAMIDE HCL 2 MG CAPSULE PO PRN (13:09)
[2023-06-16] MEDS: hydrOXYzine PAMOATE 25 MG CAPSULE (FP) PO PRN (13:53)
[2023-06-16] MEDS: LORazepam 1 MG TABLET PO PRN (13:54)
[2023-06-16] MEDS: LORazepam 2 MG TABLET PO SCH (16:05)
[2023-06-16 18:20] VITALS: PULSE 107
[2023-06-16 21:18] VITALS: BP 152/100; TEMP 98.7
[2023-06-16] MEDS: ALBUTEROL SO4 HFA INHALER IH PRN (21:29)
[2023-06-16] MEDS: LIDOCAINE 5% TOPICAL PATCH TP SCH (21:30)
[2023-06-16] MEDS ORDERED: LIDOCAINE PATCH REMOVAL MC SCH (22:00)
[2023-06-16] MEDS: MELATONIN 5 MG TABLETS PO SCH (22:13)
[2023-06-16] MEDS: METHOCARBAMOL 500 MG TABLET PO PRN (22:13)
[2023-06-16] MEDS: THIAMINE HCL 100 MG TABLET (FP) PO SCH (22:13)
[2023-06-17] MEDS ORDERED: PRENATAL VITAMINS W/ FOLIC ACID TABLET (FP) PO SCH (10:00)
[2023-06-18] MEDS ORDERED: LORazepam 1 MG TABLET PO SCH (05:00)
[2023-06-19] MEDS ORDERED: LORazepam 0.5 MG TABLET PO PRN
[2023-06-19] MEDS ORDERED: LORazepam 0.5 MG TABLET PO SCH (05:00)
[2023-06-20] MEDS ORDERED: LORazepam 0.5 MG TABLET PO ONE (05:00)
== END 2023-06-17 03:40 | disposition left against medical advice (07) | DRG 770 ==
LOC: YASAS 10:22 → Y6N 12:41
PROVIDERS: ADMIT Allergy & Immunology; ATTEND Surgery
PROC: HZ2ZZZZ Detoxification Services for Substance Abuse Treatment (ICD-10-PCS; principal; 2023-06-16)
DX: F10.20 Alcohol dependence, uncomplicated (principal); F14.20 Cocaine dependence, uncomplicated; F12.20 Cannabis dependence, uncomplicated; F17.210 Nicotine dependence, cigarettes, uncomplicated; F91.8 Other conduct disorders; Z91.199 Patient's noncompliance with other medical treatment and regimen due to unspecified reason; Z28.310 Unvaccinated for COVID-19; Z28.9 Immunization not carried out for unspecified reason; Z56.0 Unemployment, unspecified; Z59.01 Sheltered homelessness; Z88.8 Allergy status to other drugs, medicaments and biological substances
CPT/HCPCS: 93005; 93010